=== PATIENT | male | born 1960 | race Caucasian/White ===

== ENCOUNTER → 2021-10-13 10:22 | Outpatient (CLI) | payer MEDICARE, SELFPAY ==
--- NOTE | ~2021-10-13 | CT_ITS ---
EXAMINATION:CT lung screening DATE: 10/13/2021 10:36 INDICATION: Personal history of tobacco dependence. Current smoker with 30 pack year history. TECHNIQUE: Computed tomography (CT) of the chest was performed without intravenous contrast. Automate d exposure control and iterative reconstruction technique were employed. The dose-length product (DLP ) was 290.14 mGy-cm. COMPARISON: CT abdomen and pelvis 06/11/2018 FINDINGS: There is mild scarring at the lung apices. Calcified right lung nodules are consistent with old granulomatous disease. There is mild emphysema. There is mild atelectasis in the inferior lungs. No pleural effusion. The heart size is normal. There are coronary artery calcifications. No pericard ial effusion. There are changes of anterior fusion procedure in cervical spine. There is moderate tho racic spondylosis. IMPRESSION: 1. Lung-RADS category 1: Negative. Continue annual screening with noncontrast low-dose chest CT in 12 months. Reviewed, dictated and finalized at location A. K GRINDER IMPRESSION: 1. Lung-RADS category 1: Negative. Continue annual screening with noncontrast l ow-dose chest CT in 12 months.
== END ==
PROVIDERS: Visit Provider Family Medicine
DX: F17.210 Nicotine dependence, cigarettes, uncomplicated (principal)
CPT/HCPCS: 71271

== ENCOUNTER → 2022-02-17 11:49 | Outpatient (CLI) | payer MEDICARE, SELFPAY ==
--- NOTE | ~2022-02-17 | XR_ITS ---
EXAM: XR lumbar spine 6V w bending DATE: 02/17/2022 12:28 HISTORY: M54.9 - Dorsalgia, unspecified; no injury . COMPARISON: None available. FINDINGS: Mild lumbar scoliosis with rotatory component. 5 lumbar type vertebral bodies with intact pedicles. Multilevel lower lumbar facet sclerosis. Mild disc space L3-4. Moderate disc space narrowin g at L4-5 and L5-S1. 2 mm retrolisthesis of L1 on L2 and L2 on L3 remains stable in flexion. 2 mm ant erolisthesis of L4 on L5 that increases slightly in flexion. 2 mm anterolisthesis of L5 on S1. No mot ion exhibited in extension, which limits evaluation. IMPRESSION: Dynamic mild grade 1 anterolisthesis of L4 on L5. Remaining mild listheses described abov e remain stable in flexion but are inadequately evaluated in extension. Moderate lower lumbar degener ative disc disease and facet arthropathy. Reviewed, dictated and finalized at location K. IMPRESSION: Dynamic mild grade 1 anterolisthesis of L4 on L5. Remaining mild li stheses described above remain stable in flexion but are inadequately evaluated in extension. Moderate lower lumbar degenerative disc disease and facet arthro juan david.
--- NOTE | ~2022-02-17 | XR_ITS ---
EXAM: [id number] DATE: 02/17/2022 12:29 HISTORY: M54.9 - Dorsalgia, unspecified;fusion 10 yrs ago . COMPARISON: 04/10/2014. FINDINGS: Craniocervical association and atlantoaxial joint are normal. No prevertebral soft tissue swelling. Mild disc space narrowing and marginal osteophytosis at C4-5 and C7-T1. 2 mm anterolisthesi s of C3 on C4 and C4, C5, and C7 on T1. Stable interbody fusion from C5 through C7. Multilevel facet sclerosis. IMPRESSION: Mild, grade 1 anterolisthesis described above. Mild degenerative disc disease and facet a rthropathy. Reviewed, dictated and finalized at location K. IMPRESSION: Mild, grade 1 anterolisthesis described above. Mild degenerative di sc disease and facet arthropathy.
== END ==
PROVIDERS: PCP Family Medicine; Visit Provider Family Medicine
DX: M54.9 Dorsalgia, unspecified (principal); M50.30 Other cervical disc degeneration, unspecified cervical region; M43.12 Spondylolisthesis, cervical region; M51.36 Other intervertebral disc degeneration, lumbar region
CPT/HCPCS: 72040; 72114

== ENCOUNTER 2022-04-05 08:01 | Outpatient (CLI) | payer MEDICARE, SELFPAY ==
--- NOTE | ~2022-04-05 | MR_ITS ---
EXAMINATION: MR cervical spine wo con DATE: 04/05/2022 09:13 INDICATION: Other cervical disc degeneration. Neck pain. TECHNIQUE: Magnetic resonance imaging (MRI) of the cervical spine was performed without intravenous c ontrast. Sequences included sagittal T2-weighted FSE, sagittal T2-weighted FS FSE, sagittal T1-weight ed FSE, axial MERGE, and axial T2-weighted FSE. COMPARISON: Cervical spine MRI 07/22/2010, radiographs 02/17/2022 FINDINGS: There is kyphosis of cervical spine. There is 2 mm anterolisthesis of C3 on C4, C4 on C5, a nd C7 on T1. Vertebral body heights are normal. There are changes of anterior fusion procedures at C5 -C6 and C6-C7 with interbody devices. There is mildly decreased disc height at C4-C5 and C7-T1. The s shay cord signal intensity is normal. The following disc levels are specifically discussed: C2-C3: The disc does not extend beyond the endplate margin. There is mild bilateral uncovertebral dl nt osteoarthritis. There is severe bilateral facet joint osteoarthritis. There is mild bilateral neur al foraminal stenosis. There is no central canal stenosis. C3-C4: The disc does not extend beyond the endplate margin. There is moderate bilateral uncovertebral joint osteoarthritis. There is severe right and moderate left facet joint osteoarthritis. There is m oderate bilateral neural foraminal stenosis. There is no central canal stenosis. C4-C5: The disc does not extend beyond the endplate margin. There is mild bilateral uncovertebral dl nt osteoarthritis. There is severe bilateral facet joint osteoarthritis. There is mild bilateral neur al foraminal stenosis. There is no central canal stenosis. C5-C6: There is moderate bilateral uncovertebral joint hypertrophy. There is mild bilateral facet dl nt osteoarthritis. There is mild right and moderate left neural foraminal stenosis. There is no centr al canal stenosis. C6-C7: There is mild bilateral uncovertebral joint hypertrophy. There is mild right facet joint osteo arthritis. There is mild bilateral neural foraminal stenosis. There is mild central canal stenosis. C7-T1: The disc does not extend beyond the endplate margin. There is no uncovertebral joint osteoarth ritis. There is severe bilateral facet joint osteoarthritis. There is mild bilateral neural foraminal stenosis. There is no central canal stenosis. IMPRESSION: 1. Mild cervical spondylosis. 2. Anterior fusion procedures at C5-C6 and C6-C7. Reviewed, dictated and finalized at location A.
== END 2022-04-05 08:02 | disposition home or self-care (01) ==
LOC: ANHIMG 08:04
PROVIDERS: PCP Family Medicine; Visit Provider Family Medicine
DX: M50.30 Other cervical disc degeneration, unspecified cervical region (principal); M47.812 Spondylosis without myelopathy or radiculopathy, cervical region; Z98.1 Arthrodesis status
CPT/HCPCS: 72141

== ENCOUNTER 2022-10-02 22:19 | Emergency (ER) | payer MEDICARE, SELFPAY ==
--- NOTE | ~2022-10-02 | CT_ITS ---
EXAMINATION: CT abdomen pelvis wo con DATE: 10/02/2022 23:47 INDICATION: Abdomen pain. Leukocytosis. Multiple abdominal surgeries. TECHNIQUE: Computed tomography (CT) of the abdomen and pelvis was performed without intravenous contr ast. The dose-length product was 1074.61 mGy-cm. Automated exposure control and iterative reconstruct ion technique were employed. COMPARISON: CT dated 06/11/2018. FINDINGS: There are surgical changes consistent with partial colectomy and ventral abdominal wall her eilan repair. There is liquid stool throughout the colon, consistent with diarrhea. No evidence for bow el obstruction. No free air or free fluid. The liver, spleen, pancreas, adrenal glands and left kidney are unremarkable. There is a 2 mm nonobst ructing right renal stone. Gallbladder is mildly distended. There is atherosclerosis of the aorta wit hout aneurysm. No lymphadenopathy. No focal lytic or blastic lesions. There is lower thoracic and lum bar spondylosis. IMPRESSION: 1. Liquid stool in the colon, consistent with diarrhea. No obstruction. 2: Nonobstructing right nephrolithiasis. Reviewed, dictated and finalized at location A. 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
[2022-10-02 22:21] VITALS: BP 94/70; PULSE 122; RESP 32
--- NOTE | 2022-10-02 22:34 | PC.NURSE ---
patient states he stopped taking his suboxone and isnow in withdraw states his dr is not aware of this
[2022-10-02] MEDS: BUPRENORPHINE HCL (*CRX) 2 MG SUBLINGUAL TABLET 4 MG PO (22:55)
--- NOTE | 2022-10-02 22:57 | ED.ABDPAIN ---
HPI - Abdominal Pain General Chief Complaint: Abdominal Pain Stated Complaint: ABD pain, n/d Time Seen by Provider: 10/02/22 22:28 History of Present Illness HPI narrative: 62-year-old male history of hypertension, hyperlipidemia, and opioid abuse presents to the emergency room for evaluation of nausea, abdominal pain and diarrhea intermittently for 2 weeks. Reports has had multiple episodes of nonbloody liquid diarrhea. Patient states that he takes Suboxone 3 times a day and has been weaning himself off over the past couple of weeks. States has been taking 4 mg 3 times a day instead of his regular 8. Patient also admits to not taking Suboxone for the last 48 hours. Admits that he has been weaning himself off without the direction of his PCP. Related Data Allergies Allergy/AdvReac Type Severity Reaction Status Date / Time No Known Allergies Allergy Verified 07/31/22 13:55 Review of Systems Review of Systems: CONSTITUTIONAL: Denies fever, chills, or sweats. EYES: Denies visual changes, redness, or discharge. ENT: Denies rhinorrhea, congestion, sore throat, or otalgia. CARDIOVASCULAR: Denies chest pain, palpitations, or edema. RESPIRATORY: Denies cough or dyspnea. GASTROINTESTINAL: Reports abdominal pain, nausea, vomiting, and diarrhea. GENITOURINARY: Denies dysuria or hematuria. SKIN: Denies rash or itching. MUSCULOSKELETAL: Denies back pain, joint pain, or myalgia. NEUROLOGIC: Denies headache, numbness, dizziness, or weakness. PSYCHIATRIC: Denies anxiety or depression. [facility] Past Medical History Medical History Anxiety Arthritis Depression GERD (gastroesophageal reflux disease) Skin cancer Family History Family History Father , Age 59 [place] Heart disease Grandparent , Age 96 of Natural Causes No problems noted. Grandparent , Age 87 Lung Cancer Lung cancer Grandparent , Age 85 Natural Causes No problems noted. Grandparent , Age 83 Leukemia Leukemia Social History Social History Smoking packs per day: 1 Smoking cigarettes per day: 20.0 Years smoked: 20 Smoking pack-years: 20.00 Smoking status: Current every day smoker Alcohol intake: never Spiritual care concerns: No Exam Narrative: GENERAL: Well-appearing, well-nourished, no physical limitations, uncomfortable HEAD: Normocephalic, atraumatic. EYES: Conjunctivae normal, PERRLA and EOMI. CHEST: Clear to auscultation. No respiratory distress. No wheezes rales or rhonchi. HEART: Regular rate and rhythm. No murmur heard. Normal peripheral pulses. ABDOMEN: Soft, nontender, nondistended, normal active bowel sounds. Healed ventral incisional scar BACK: No CVA tenderness EXTREMITIES: Normal range of motion. No edema. No clubbing or cyanosis SKIN: Warm, dry, no rash. No noted wounds NEURO: No focal deficits. Alert and oriented x3. MAEW. CN's II-XI intact bilaterally, normal gait PSYCH: Cooperative. Normal mood and affect. Course Course Emergency Course: Discussed findings with patient. Discussed his abnormal kidney function, and recommended he stay in the hospital for an acute TONY. Patient stated he would rather go home and follow-up with nephrology on Wednesday. Discussed the risks and benefits of not being hospitalized, he stated understanding. Vital Signs Vital signs: Vital Signs Pulse Rate 122 H 10/02/22 22:21 Respiratory Rate 32 H 10/02/22 22:21 Blood Pressure 94/70 L 10/02/22 22:21 Pulse Rate 122 H 10/02/22 22:21 Respiratory Rate 32 H 10/02/22 22:21 Blood Pressure 94/70 L 10/02/22 22:21 MDM - Abdominal Pain Lab Data 10/02/22 23:10 10/02/22 23:10 Labs: Lab Results 10/02/22 10/02/22 10/02/22 Range/Units 2
[2022-10-02] MEDS: SODIUM CHLORIDE 0.9% IV 1,000 ML 999 ML IV CONT (23:09)
[2022-10-02] MEDS: ONDANSETRON INJ 4 MG/2 ML VIAL IV PUSH (23:09)
[2022-10-02 23:22] LABS: Basophils Absolute Auto 0.1 K/mm3 (0.0-0.1); Basophils Percent Auto 0.4 % (0.2-1.2); Eosinophils Absolute Auto 0.1 K/mm3 (0-0.3); Eosinophils Percent Auto 0.7 % (0-4.4); Hematocrit 49.1 % (42.0-52.0); Hemoglobin 15.7 g/dL (14.0-18.0); Immature Granulocyte Absolute 0.29 K/mm3 (0.00-0.031); Immature Granulocyte Percent A 1.6 % (0-0.5); Lymphocytes Absolute Auto 2.57 K/mm3 (0.9-3.2); Lymphocytes Percent Auto 14.4 % (18.3-44.2); Mean Corpuscular Hemoglobin 26.1 pg (26-34); Mean Corpuscular Volume 81.6 fl (80-100); Mean Platelet Volume 10.6 fl (7.4-10.4); Monocytes Percent Auto 5.6 % (2.6-8.5); Neutrophils Absolute Auto 13.8 K/mm3 (1.3-6.7); Neutrophils Percent Auto 77.3 % (45.5-73.1); Platelet Count Result 573 k/mm3 (150-375); Red Blood Count 6.02 M/mm3 (4.6-6.20); Red Cell Distribution Width 18.4 % (11.5-14.5); White Blood Count 17.9 K/mm3 (4.5-10.0)
[2022-10-02 23:33] LABS: Alanine Aminotransferase 32 U/L (6-50); Albumin Level 4.6 g/dL (3.5-5.1); Alkaline Phosphatase 124 U/L (38-126); Anion Gap 13 mmol/L (8-16); Aspartate Amino Transferase 34 U/L (17-59); Bilirubin,Total 0.7 mg/dL (0.2-1.3); Blood Urea Nitrogen 30 mg/dL (9-20); Calcium 10.8 mg/dL (8.4-10.2); Carbon Dioxide 25 mmol/L (22-30); Chloride 99 mmol/L (98-107); Estimated CRCL calculation 28 ml/min; Estimated Glomerular Filt Rate 24; Glucose 126 mg/dL (65-110); Lipase 141 U/L (23-300); Potassium 4.2 mmol/L (3.4-5.0); Sodium 137 mmol/L (137-145)
[2022-10-02 23:52] VITALS: BP 100/79
[2022-10-03 00:15] VITALS: BP 108/83; PULSE 95; RESP 16; O2SAT 99
[2022-10-03 00:33] LABS: SARS-CoV-2 RNA PCR Negative
[2022-10-03 00:45] LABS: Lactic Acid Reflex 1.9 mmol/L (0.7-2.0)
[2022-10-03] MEDS: SODIUM CHLORIDE 0.9% IV 1,000 ML 999 ML IV CONT (01:00)
[2022-10-03 01:12] LABS: Mucus Urine Heavy /lpf; Squamous Epithelial Cell Urine Few /hpf (Few)
[2022-10-03 01:13] LABS: Add Urine Microscopic? YES; Appearance Urine Clear (Clear); Bilirubin Urine 1+ (Negative); Blood Urine Negative (Negative); Color Urine Yellow (Yellow); Glucose Urine UA Negative (Negative); Ketones Urine Trace mg/dL (Negative); Leukocyte Esterase Ur Negative LEU/UL (Negative); Nitrate Urine Negative (Negative); Protein Urine 1+ mg/dL (Negative); Specific Grav Ur 1.025 (1.001-1.035); Urobilinogen Urine 0.2 mg/dL (<2.0); pH Urine 5.5 (5.0-9.0)
[2022-10-03 01:22] LABS: Amphetamine Screen Urine Negative (Negative); Barbiturate Screen Urine Negative (Negative); Benzodiazepines Screen Urine Negative (Negative); Cannabinoid Screen Urine Negative (Negative); Cocaine Screen Urine Negative (Negative); Methadone Screen Urine Negative (Negative); Opiate Screen Urine Negative (Negative); Phencyclidine Screen Urine Negative (Negative)
== END 2022-10-03 01:16 | disposition home or self-care (01) ==
PROVIDERS: Emergency Provider Nurse Practitioner Family; PCP Family Medicine
DX: R19.7 Diarrhea, unspecified (principal); N28.9 Disorder of kidney and ureter, unspecified; T40.496A Underdosing of other synthetic narcotics, initial encounter; R11.0 Nausea; R10.9 Unspecified abdominal pain; Z91.128 Patient's intentional underdosing of medication regimen for other reason; Z20.822 Contact with and (suspected) exposure to COVID-19; I10 Essential (primary) hypertension; E78.5 Hyperlipidemia, unspecified; M19.90 Unspecified osteoarthritis, unspecified site; K21.9 Gastro-esophageal reflux disease without esophagitis; F41.9 Anxiety disorder, unspecified; F32.A Depression, unspecified; F17.210 Nicotine dependence, cigarettes, uncomplicated; Z85.828 Personal history of other malignant neoplasm of skin; Z79.899 Other long term (current) drug therapy; N20.0 Calculus of kidney
CPT/HCPCS: 36415; 74176; 80053; 80307; 81001; 83605; 83690; 85025; 87086; 96361; 96374; 99284; A9270; J2405; J7030; U0003; U0005

== ENCOUNTER 2022-11-13 08:49 | Outpatient (CLI) | payer MEDICARE, SELFPAY ==
[2022-11-13 11:02] LABS: Basophils Absolute Auto 0.1 K/mm3 (0.0-0.1); Basophils Percent Auto 0.6 % (0.2-1.2); Eosinophils Absolute Auto 0.3 K/mm3 (0-0.3); Eosinophils Percent Auto 3.9 % (0-4.4); Hematocrit 47.1 % (42.0-52.0); Hemoglobin 15.5 g/dL (14.0-18.0); Immature Granulocyte Absolute 0.03 K/mm3 (0.00-0.031); Immature Granulocyte Percent A 0.4 % (0-0.5); Lymphocytes Absolute Auto 2.59 K/mm3 (0.9-3.2); Lymphocytes Percent Auto 31.4 % (18.3-44.2); Mean Corpuscular HGB Conc 32.9 g/dl (32-36); Mean Corpuscular Hemoglobin 27.5 pg (26-34); Mean Corpuscular Volume 83.5 fl (80-100); Mean Platelet Volume 11.6 fl (7.4-10.4); Monocytes Absolute Auto 0.7 K/mm3 (0.1-0.6); Monocytes Percent Auto 8.6 % (2.6-8.5); Neutrophils Absolute Auto 4.5 K/mm3 (1.3-6.7); Neutrophils Percent Auto 55.1 % (45.5-73.1); Platelet Count Result 152 k/mm3 (150-375); Red Blood Count 5.64 M/mm3 (4.6-6.20); Red Cell Distribution Width 16.3 % (11.5-14.5); White Blood Count 8.2 K/mm3 (4.5-10.0)
[2022-11-13 11:34] LABS: Potassium 4.6 mmol/L (3.4-5.0)
[2022-11-13 11:37] LABS: Alanine Aminotransferase 19 U/L (6-50); Albumin Level 4.4 g/dL (3.5-5.1); Alkaline Phosphatase 79 U/L (38-126); Anion Gap 3 mmol/L (8-16); Aspartate Amino Transferase 32 U/L (17-59); Bilirubin,Total 0.5 mg/dL (0.2-1.3); Blood Urea Nitrogen 16 mg/dL (9-20); Calcium 8.6 mg/dL (8.4-10.2); Carbon Dioxide 34 mmol/L (22-30); Chloride 101 mmol/L (98-107); Cholesterol 186 mg/dL (0-200); Estimated Glomerular Filt Rate > 60; Glucose 117 mg/dL (65-110); HDL Direct 35 mg/dL; Sodium 138 mmol/L (137-145); Triglycerides 270 mg/dL (<150)
[2022-11-13 11:45] LABS: LDL Cholesterol Direct 90 mg/dL
[2022-11-20 17:09] LABS: Testosterone Free 20.6 pg/mL (35.0-155.0); Testosterone Total 176 ng/dL (250-1100)
== END 2022-11-13 08:50 | disposition home or self-care (01) ==
LOC: ANHGOSHLAB 08:50
PROVIDERS: PCP Family Medicine; Visit Provider Family Medicine
DX: F52.21 Male erectile disorder (principal); I10 Essential (primary) hypertension; Z13.220 Encounter for screening for lipoid disorders; D75.839 Thrombocytosis, unspecified
CPT/HCPCS: 36415; 80053; 80061; 84402; 84403; 85025

== ENCOUNTER 2022-11-24 00:10 | Day surgery (SDC) | payer MEDICARE, SELFPAY ==
[2022-11-09 11:32] VITALS: BMI 32.5
--- NOTE | 2022-11-23 11:05 | WPDANESEPPF ---
Anes - Initial Pre Proc Eval Procedure: Operation Date: 11/24/22 13:00 Proposed Procedures p Colonoscopy - Manny Garcia MD Date/Time: 11/23/22 11:05 Surgeon: Manny Garcia MD Pre Op Diagnosis: melena Patient Data Age: 62 Gender: M Height: 1.75 m Weight: 100 kg Allergies Allergy/AdvReac Type Severity Reaction Status Date / Time No Known Allergies Allergy Verified 11/24/22 11:55 Home Medications Medication Instructions Recorded Confirmed Type omeprazole 20 mg capsule,delayed 20 mg PO DAILY #30 caps 09/15/21 11/24/22 Rx release atorvastatin 20 mg tablet 20 mg PO DAILY #90 tabs 04/20/22 11/24/22 Rx losartan 100 mg tablet 100 mg PO DAILY #90 tabs 07/07/22 11/24/22 Rx gabapentin 300 mg capsule See Rx Instructions .Route 10/08/22 11/24/22 Rx .COMPLEX #180 caps methylphenidate HCl 20 mg tablet 20 mg PO TID #90 tabs 10/29/22 11/24/22 Rx (Ritalin) duloxetine 30 mg capsule,delayed 30 mg PO DAILY #30 caps 11/05/22 11/24/22 Rx release metoprolol tartrate 50 mg tablet 50 mg PO BID #60 tabs 11/06/22 11/24/22 Rx buprenorphine HCl 8 mg sublingual 8 mg sublingual TID #90 tabs 11/07/22 11/24/22 Rx tablet albuterol sulfate 90 mcg/actuation 1 inh inhalation Q4-6H PRN 11/09/22 11/24/22 History aerosol inhaler Shortness Of Breath venlafaxine 150 mg tablet,extended 150 mg PO DAILY 11/09/22 11/24/22 History release 24 hr venlafaxine 75 mg tablet,extended 75 mg PO DAILY 11/09/22 11/24/22 History release 24 hr testosterone 12.5 mg/1.25 gram per 4 pump transdermal DAILY #150 grams 11/24/22 11/24/22 Rx pump actuation (1%) transdermal gel Patient hx anesthesia problems: none Family hx anesthesia problems: none Results Review: All pre-operative results and documents have been reviewed as part of the pre-operative evaluation. [facility] Past Medical History Medical History (Updated 11/23/22 @ 11:06 by Lance Jara DO) ADD (attention deficit disorder) Anxiety Arthritis Benign essential hypertension COPD (chronic obstructive pulmonary disease) Depression GERD (gastroesophageal reflux disease) Hyperlipidemia Skin cancer Surgical History Surgical History (Updated 11/23/22 @ 11:06 by Lance Jara DO) History of cervical spinal surgery Family History Family History Father , Age 59 [place] Heart disease Grandparent , Age 96 of Natural Causes No problems noted. Grandparent , Age 87 Lung Cancer Lung cancer Grandparent , Age 85 Natural Causes No problems noted. Grandparent , Age 83 Leukemia Leukemia Social History Social History Smoking packs per day: 1 Smoking cigarettes per day: 20.0 Years smoked: 20 Smoking pack-years: 20.00 Smoking status: Current every day smoker Tobacco type: cigarettes Alcohol intake: never Substance use: former Substance use type: opiates Lack of Transportation: No Lack of Food: Never True Current Housing: I Have Housing Concerned About Future Housing: No Difficulty Paying Gas/Electric Bills: No Difficulty Paying for Meds: No Currently Unemployed: No Education: Bachelor's Degree Difficulty w/ Childcare or Family Care: No Living arrangements: alone Spiritual care concerns: No Anes - Eval Final PreProcedure Day of Procedure 11/23/22 11:05 Patient weight: obese Heart: regular rate and rhythm Lungs: clear to auscultation Airway: Mallampati scale class II Neurological: alert and oriented Last oral intake: >/= 8 hours ASA classification: III Emergent: no Anesthetic plan: proceed Anesthesia type and monitoring: general GIVS and standard monitoring Results Review: All pre-operative results and documents have been reviewed as part of the pre-operative ev
[2022-11-24 11:45] VITALS: BP 131/85; PULSE 101; RESP 18; TEMP 36; O2SAT 99; BMI 34.6
[2022-11-24] MEDS: LACTATED RINGERS 1,000 ML 150 ML IV CONT (12:05)
--- NOTE | 2022-11-24 12:09 | SUR.PREOP ---
1200- Updated patient. Aware that we are running behind schedule. Patient understanding.
--- NOTE | 2022-11-24 13:22 | PM.HPGS ---
History of Present Illness History of Present Illness Consent: Risks, benefits, and alternatives have been discussed and questions answered. Patient agrees to proceed with procedure. Chief complaint: melena Narrative: Steve Shirley is a 62 year old male here for colonoscopy, had occult blood in stool, last colonoscopy about 4 years ago Review of Systems Constitutional: Constitutional: Denies headache(s) and Denies weakness Eyes: Eyes: Denies blurry vision ENT: Reports Normal hearing present, Denies headache(s) and Denies neck pain Cardiovascular: Cardiovascular: Denies chest pain and Denies dyspnea Respiratory: Respiratory: Denies dyspnea Gastrointestinal: Gastrointestinal: Reports no additional gastrointestinal complaints Genitourinary: Genitourinary: Denies dysuria Musculoskeletal: Musculoskeletal: Denies neck pain Integumentary/Breasts: Skin/Breast: Denies dry skin Neurologic: Reports Normal hearing present, Denies headache(s) and Denies weakness Psychiatric: Psychiatric: Denies anxiety Endocrine: Endocrine: Denies change in body appearance Hematologic/Lymphatic: Hematologic/Lymphatic: Denies easy bleeding Allergic/Immunologic: Allergic/Immunologic: Denies urticaria PMFSH Past Medical History Medical History (Updated 11/24/22 @ 13:23 by Manny Garcia MD) ADD (attention deficit disorder) Anxiety Arthritis Benign essential hypertension COPD (chronic obstructive pulmonary disease) Depression GERD (gastroesophageal reflux disease) Hyperlipidemia Occult blood in stools Skin cancer Surgical History Surgical History (Updated 11/23/22 @ 11:06 by Lance Jara DO) History of cervical spinal surgery Family History Family History Father , Age 59 [place] Heart disease Grandparent , Age 96 of Natural Causes No problems noted. Grandparent , Age 87 Lung Cancer Lung cancer Grandparent , Age 85 Natural Causes No problems noted. Grandparent , Age 83 Leukemia Leukemia Social History Social History Smoking packs per day: 1 Smoking cigarettes per day: 20.0 Years smoked: 20 Smoking pack-years: 20.00 Smoking status: Current every day smoker Tobacco type: cigarettes Alcohol intake: never Substance use: former Substance use type: opiates Lack of Transportation: No Lack of Food: Never True Current Housing: I Have Housing Concerned About Future Housing: No Difficulty Paying Gas/Electric Bills: No Difficulty Paying for Meds: No Currently Unemployed: No Education: Bachelor's Degree Difficulty w/ Childcare or Family Care: No Living arrangements: alone Spiritual care concerns: No Meds Home Medications and Allergies Home Medications Medication Instructions Recorded Confirmed Type omeprazole 20 mg capsule,delayed 20 mg PO DAILY #30 caps 09/15/21 11/24/22 Rx release atorvastatin 20 mg tablet 20 mg PO DAILY #90 tabs 04/20/22 11/24/22 Rx losartan 100 mg tablet 100 mg PO DAILY #90 tabs 07/07/22 11/24/22 Rx gabapentin 300 mg capsule See Rx Instructions .Route 10/08/22 11/24/22 Rx .COMPLEX #180 caps methylphenidate HCl 20 mg tablet 20 mg PO TID #90 tabs 10/29/22 11/24/22 Rx (Ritalin) duloxetine 30 mg capsule,delayed 30 mg PO DAILY #30 caps 11/05/22 11/24/22 Rx release metoprolol tartrate 50 mg tablet 50 mg PO BID #60 tabs 11/06/22 11/24/22 Rx buprenorphine HCl 8 mg sublingual 8 mg sublingual TID #90 tabs 11/07/22 11/24/22 Rx tablet albuterol sulfate 90 mcg/actuation 1 inh inhalation Q4-6H PRN 11/09/22 11/24/22 History aerosol inhaler Shortness Of Breath venlafaxine 150 mg tablet,extended 150 mg PO DAILY 11/09/22 11/24/22 History release 24 hr venlafaxine 75 mg tablet,extended 75 mg PO DAILY 11/09/22 11/24/22
[2022-11-24 13:43] VITALS: BP 100/61; PULSE 85; RESP 20; O2SAT 93
[2022-11-24 13:53] VITALS: BP 113/78; PULSE 89; RESP 21; O2SAT 97
[2022-11-24 14:03] VITALS: BP 121/79; PULSE 83; RESP 16; O2SAT 96
== END 2022-11-24 14:10 | disposition home or self-care (01) ==
PROVIDERS: PCP Family Medicine; Visit Provider Internal Medicine Gastroenterology
PROC: 0DJD8ZZ Inspection of Lower Intestinal Tract, Via Natural or Artificial Opening Endoscopic (ICD-10-PCS; CPT 45378; principal; 2022-11-24 13:00)
DX: Z12.11 Encounter for screening for malignant neoplasm of colon (principal); K57.30 Diverticulosis of large intestine without perforation or abscess without bleeding; K64.8 Other hemorrhoids; R19.5 Other fecal abnormalities; Z90.49 Acquired absence of other specified parts of digestive tract; Z98.0 Intestinal bypass and anastomosis status; Z87.19 Personal history of other diseases of the digestive system; J44.9 Chronic obstructive pulmonary disease, unspecified; E78.5 Hyperlipidemia, unspecified; F41.9 Anxiety disorder, unspecified; F32.A Depression, unspecified; K21.9 Gastro-esophageal reflux disease without esophagitis; F98.8 Other specified behavioral and emotional disorders with onset usually occurring in childhood and adolescence; F17.210 Nicotine dependence, cigarettes, uncomplicated; Z79.51 Long term (current) use of inhaled steroids; E66.9 Obesity, unspecified; Z68.34 Body mass index [BMI] 34.0-34.9, adult
CPT/HCPCS: G0121; J2704; J7120

== ENCOUNTER 2023-06-29 12:46 | Emergency (ER) | payer MEDICARE, SELFPAY ==
--- NOTE | ~2023-06-29 | XR_ITS ---
EXAMINATION: XR foot RT min 3V DATE: 06/29/2023 13:21 INDICATION: Right foot pain TECHNIQUE: Dorsoplantar, lateral, and 2 oblique views of the right foot were obtained. COMPARISON: None. FINDINGS: Bone alignment is normal. There is advanced osteoarthritis at the first metatarsophalangeal joint. A subtle heterotopic ossification projects near the dorsal base of the first metatarsal. Ther e is dorsal soft tissue swelling of the foot. IMPRESSION: 1. Possible avulsion injury at the dorsal base of the first metatarsal. Reviewed, dictated and finalized at location A.
[2023-06-29 12:58] VITALS: BP 149/97; PULSE 106; RESP 16; TEMP 36.1; O2SAT 99
--- NOTE | 2023-06-29 13:11 | ED.LOWEXIN ---
HPI - Extremity Injury (Lower) General Chief Complaint: Extremity Injury, Lower Stated Complaint: R FOOT INJURY Time Seen by Provider: 06/29/23 13:13 Source: patient, RN notes reviewed and old records reviewed Mode of arrival: ambulatory Limitations: no limitations History of Present Illness HPI Narrative: 63-year-old male presents to the [facility] with complaints of right foot pain. Pain over the 4th and 5th metatarsals. No 1st metatarsal or MM DP tenderness. Patient states about a week ago was walking downstairs, hyper extended his foot when he was to try to avoid his CT. No bruising or swelling noted. Positive pedal pulse. Sensation intact capillary refill under 2 seconds Related Data Home Medications Medication Instructions Recorded Confirmed albuterol sulfate 90 mcg/actuation 1 inh inhalation Q4-6H PRN 11/09/22 03/18/23 aerosol inhaler Shortness Of Breath Allergies Allergy/AdvReac Type Severity Reaction Status Date / Time No Known Allergies Allergy Verified 03/18/23 11:22 Review of Systems Review of Systems: All systems reviewed & are unremarkable except as noted in HPI and below Constitutional: Constitutional: Reports no additional constitutional complaints Eyes: Eyes: Reports no additional eye complaints ENT: Reports system reviewed and no additional complaints, except as documented Cardiovascular: Cardiovascular: Reports no additional cardiovascular complaints, Denies chest pain and Denies dyspnea Respiratory: Respiratory: Reports no additional respiratory complaints, Denies chest congestion, Denies cough and Denies dyspnea Gastrointestinal: Gastrointestinal: Reports no additional gastrointestinal complaints, Denies abdominal pain, Denies nausea and Denies vomiting Musculoskeletal: Musculoskeletal: Reports as per HPI Integumentary/Breasts: Skin/Breast: Reports system reviewed and no additional complaints, except as docu Neurologic: Reports system reviewed and no additional complaints, except as documented Psychiatric: Psychiatric: Reports no additional psychiatric complaints Allergic/Immunologic: Allergic/Immunologic: Reports no additional allergic/immunologic complaints [facility] Past Medical History Medical History ADD (attention deficit disorder) Anxiety Arthritis Benign essential hypertension COPD (chronic obstructive pulmonary disease) Depression GERD (gastroesophageal reflux disease) Hyperlipidemia Occult blood in stools Skin cancer Surgical History Surgical History History of cervical spinal surgery Family History Family History Father , Age 59 [place] Heart disease Grandparent , Age 96 of Natural Causes No problems noted. Grandparent , Age 87 Lung Cancer Lung cancer Grandparent , Age 85 Natural Causes No problems noted. Grandparent , Age 83 Leukemia Leukemia Social History Social History Smoking packs per day: 1 Smoking cigarettes per day: 20.0 Years smoked: 20 Smoking pack-years: 20.00 Smoking status: Current every day smoker Tobacco type: cigarettes Alcohol intake: never Substance use: former Substance use type: opiates Living arrangements: alone Spiritual care concerns: No Comments At the time of my signature, I reviewed and agree with the nursing past medical, surgical, social, and family history. There is no relevant family history pertinent to the patient complaint. Exam Const: General: cooperative, healthy appearing, comfortable, no acute distress, well developed, alert and well nourished Nutritional Appearance: well nourished Orientation/consciousness: patient oriented x3 Limitations: no limitations HENMT: Head:
== END 2023-06-29 13:38 | disposition home or self-care (01) ==
PROVIDERS: Emergency Provider Nurse Practitioner; PCP Family Medicine
DX: S93.601A Unspecified sprain of right foot, initial encounter (principal); T14.90XA Injury, unspecified, initial encounter; F98.8 Other specified behavioral and emotional disorders with onset usually occurring in childhood and adolescence; K21.9 Gastro-esophageal reflux disease without esophagitis; E78.5 Hyperlipidemia, unspecified; I10 Essential (primary) hypertension; F17.210 Nicotine dependence, cigarettes, uncomplicated
CPT/HCPCS: 73630; 99213; G0463

== ENCOUNTER 2024-04-25 14:26 | Outpatient (CLI) | payer MEDICARE, SELFPAY ==
--- NOTE | ~2024-04-25 | CT_ITS ---
EXAMINATION: CT lung screening DATE: 04/25/2024 14:37 INDICATION: F17.210 - Nicotine dependence, cigarettes, uncomplicated TECHNIQUE: Computed tomography (CT) of the chest was performed without intravenous contrast. Addition al 3D reconstructions utilizing coronal maximum intensity projection (MIP) were performed. Automated exposure control and iterative reconstruction technique were employed. The dose-length product was 32 6.04 mGy-cm. COMPARISON: None FINDINGS: There are a few tiny bilateral calcified pulmonary nodules consistent with old granulomatous disease. Unchanged discoid atelectasis/scarring in the right middle lobe and to lesser degree lingula and bas ilar left lower lobe. Taking pattern of mild discoid atelectasis in the right lower lobe. No other goff spicious pulmonary nodules, pneumonia or other pulmonary infiltrates or pleural effusion. Heart size is normal. Atherosclerotic coronary artery calcific location. No pericardial effusion. Thoracic aorta is normal in caliber. No pathologically enlarged thoracic lymphadenopathy. Visualized upper abdomen is unremarkable. Moderate thoracic spondylosis. IMPRESSION: 1. Lung-RADS category 1: Negative. Continue annual screening with noncontrast low-dose chest CT in 12 months. Reviewed, dictated and finalized at location A. IMPRESSION: 1. Lung-RADS category 1: Negative. Continue annual screening with noncontrast l ow-dose chest CT in 12 months.
== END 2024-04-25 14:27 | disposition home or self-care (01) ==
LOC: ANHIMG 14:28
PROVIDERS: PCP Family Medicine; Visit Provider Family Medicine
DX: Z12.2 Encounter for screening for malignant neoplasm of respiratory organs (principal); F17.210 Nicotine dependence, cigarettes, uncomplicated
CPT/HCPCS: 71271

== ENCOUNTER 2024-08-07 08:52 | Outpatient (CLI) | payer MEDICARE, SELFPAY ==
[2024-08-07 19:41] LABS: LDL Cholesterol Direct 94 mg/dL
[2024-08-07 19:46] LABS: Cholesterol 257 mg/dL (0-200); HDL Direct 25 mg/dL
[2024-08-07 21:22] LABS: Triglycerides 695 mg/dL (<150)
== END 2024-08-07 08:53 | disposition home or self-care (01) ==
LOC: ANHGOSHLAB 08:54
PROVIDERS: PCP Family Medicine; Visit Provider Family Medicine
DX: R53.83 Other fatigue (principal); E78.5 Hyperlipidemia, unspecified; Z13.220 Encounter for screening for lipoid disorders
CPT/HCPCS: 36415; 80061; 84402; 84403

== ENCOUNTER 2024-11-16 10:56 | Outpatient (CLI) | payer MEDICARE, SELFPAY ==
--- NOTE | ~2024-11-16 | XR_ITS ---
AP and lateral views of the left hip Clinical history: Pain Findings: No acute fracture or dislocation is seen. Osseous alignment is anatomic. Left hip is intact . Soft tissues are unremarkable. Impression: No significant abnormality is seen. Reviewed, dictated and finalized at location M. P HOME SUPERVISOR Impression: No significant abnormality is seen.
--- NOTE | ~2024-11-16 | XR_ITS ---
EXAMINATION: SACRUM/COCCYX DATE: 11/16/2024 11:17 INDICATION: Back pain TECHNIQUE: Three views sacrum/coccyx FINDINGS: CT dated 10/02/2022 There is no displaced fracture of the sacrum. The coccyx demonstrates overall normal morphology with out acute angulation. IMPRESSION: 1. No acute displaced osseous abnormality of the sacrum. Suspicion for occult or nondisplaced sacral fracture can either be evaluated with CT or MRI. 2. Grossly normal morphology to the coccyx without acute angulation. However, due to the wide range of normal variation of the coccyx, acute injury would be best evaluated by clinical examination and patient's symptoms. Reviewed, dictated and finalized at location B. OM HOME INSTALLER
== END 2024-11-16 10:57 | disposition home or self-care (01) ==
LOC: GOSHIMG 10:56
PROVIDERS: PCP Nurse Practitioner; Visit Provider Nurse Practitioner
DX: M25.559 Pain in unspecified hip (principal); M53.3 Sacrococcygeal disorders, not elsewhere classified
CPT/HCPCS: 72220; 73502

== ENCOUNTER 2025-03-16 12:24 | Outpatient (RCR) | payer MEDICARE, SELFPAY ==
--- NOTE | 2025-03-09 10:19 | PCPTNOTE ---
Pt used automated messaging system to request a rescheduling of his OP PT Evaluation, per front office communication.
--- NOTE | 2025-03-16 13:25 | OPREHPOC ---
Outpatient Therapy Plan of Care This is a Multidisciplinary Plan of Care that may contain components documented by all disciplines (PT, OT, and ST.) PT Problem 1 PT Problem #1 Knowledge Deficit PT Goal 1 Goal / Goal Update Patient to demonstrate independence with HEP for improved self-reliance of symptom management. Target Visit 8 PT Problem 2 PT Problem #2 Pain PT Goal 1 Goal / Goal Update 1. Patient to decrease subjective reports of pain to <3/10 for improved ADL tolerance. 2. Patient to report an improvement in radiating symptoms by 50% to increase ability to perform ADLs. Target Visit 8 PT Problem 3 PT Problem #3 Impaired Functional Mobility PT Goal 1 Goal / Goal Update 1. Pt will tolerate 6 MWT with no radicular pain or rest breaks needed showing improvements in functional mobility. 2. Pt will show improvements in lumbar ROM in all planes with no pain provocation Target Visit 8 PT Problem 4 PT Problem #4 Impaired Strength PT Goal 1 Goal / Goal Update 1. - Patient will demonstrate improved strength of the bilateral hip abductors to 4+/5 on manual muscle testing in order to improve gait stability .
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
--- NOTE | 2025-03-23 09:14 | PCPTNOTE ---
Patient requested to cancel in [employer] with no reason given.
--- NOTE | 2025-03-26 12:19 | PCPTNOTE ---
Pt called and canceled his appointment stating he has been dizzy for the past few days and he is going to see his doctor about it tomorrow.
--- NOTE | 2025-04-02 11:38 | PCPTNOTE ---
Patient called this morning to ask when his appointment was via voicemail. Patient's call was returned at 8:31 am however he did not answer therefore his appointment time of 11:00 am was left via voicemail. Patient no-showed his appointment this date.
--- NOTE | 2025-04-02 14:26 | PTOPDC ---
Assessment and note entered by Orestes Cooper, PT Evaluation Information Assessment Status Discharge - Pt Not Present Diagnosis Hip pain and Sciatica ICD-10 Condition Codes (PT) Radiculopathy, sacral and sacrococcygeal region M54.18,Pain in left hip M25.552 Onset 1 year ago Subjective Information Pt was called and informed he discharged from PT services due to the no call, no show cancelation policy. Assessment PT Clinical Summary Pt was seen for initial evaluation but did not come for any treatment session and was discharged from PT services due to 3 consecutive no call no shows. Plan of Care PT Services Indicated No
== END 2025-04-03 09:21 | disposition home or self-care (01) ==
LOC: ANHGOSHPT 12:24
PROVIDERS: PCP Internal Medicine; Visit Provider Nurse Practitioner
DX: M25.552 Pain in left hip (principal); M53.3 Sacrococcygeal disorders, not elsewhere classified
CPT/HCPCS: 97110; 97140; 97161

== ENCOUNTER 2025-04-03 09:56 | Inpatient (IN) | payer MEDICARE, SELFPAY ==
[2025-04-03] VITALS (15 sets, daily range): BP systolic 115–180; BP diastolic 75–120; PULSE 97–121; RESP 14–36; TEMP 36.4–37.1; O2SAT 90–100; BMI 35.2
--- NOTE | ~2025-04-03 | CT_ITS ---
CT chest abdomen pelvis wo con Ordering provider: Rony Rebolledo MD History: . sepsis, abd pain . Comparison: None. Technique: CT chest without IV contrast. CT abdomen and pelvis without oral and IV contrast. Radiatio n reduction technique utilized. The dose-length product was 1917.29 mGy-cm. FINDINGS: The study is limited due to lack of IV contrast. CHEST: Motion artifacts are markedly degraded the images. --VISUALIZED THORACIC INLET: Normal as visualized. --MEDIASTINUM: Aorta/coronary arteries: Mild atheromatous disease. Heart/other: The heart is not enlarged. Lymph nodes: No mediastinal or hilar adenopathy. --LUNGS: pneumonia is seen in the left upper lobe. A trace of right pleural effusion with adjacent at electasis seen. No pulmonary nodules or masses. No infiltrates or effusions. No pneumothorax. --MUSCULOSKELETAL: Soft tissues: The superficial soft tissues are normal. Bones: Age appropriate degenerative changes of the spine. ABDOMEN/PELVIS: --MUSCULOSKELETAL: Bones: Age appropriate degenerative changes of the spine. Superficial soft tissues: Bilateral fat containing inguinal hernias. Postoperative changes in the mid line of the abdomen. Otherwise, The superficial soft tissues are normal. Possible fracture in the rig ht transverse process of L4. --UPPER ABDOMINAL ORGANS: Liver: Normal. Gallbladder: Normal. Spleen: Normal. Stomach/duodenum: Normal. Pancreas: Normal. Atrophic. Adrenals: Normal. Kidneys: Normal. Prominent fat around the left kidney is seen compared to the right. --PELVIC ORGANS: The bladder is underfilled with Fitzpatrick's catheter seen in the bladder. --BOWEL AND MESENTERY: Colon: No evidence of diverticulitis. Postoperative changes seen in the large bowel with dilatation i n the area. No obstruction seen Follow-up advised.. Appendix is not seen. Small Bowel: Normal. No obstruction. Peritoneum/mesentery: No free air or free fluid. No mesenteric lymphadenopathy. --RETROPERITONEUM: Mild atheromatous disease of the abdominal aorta. No retroperitoneal lymphadenop athy. IMPRESSION: CHEST: 1. Highly suggestive pneumonia in the left upper lobe. 2. Trace of right pleural effusion with adjacent atelectasis. ABDOMEN/PELVIS: 1. No evidence of intestinal obstruction seen. Focal dilatation in the area of the bowel surgery is noted. Clinical correlation and follow-up advised. 2. Bilateral fat containing inguinal hernias. Reviewed, dictated and finalized at location A.
--- NOTE | ~2025-04-03 | CT_ITS ---
EXAM: CT diagnostic chest wo con - 04/03/2025 15:05 CDT History: 64 years old Male with pulmonary edema vs PNA TECHNIQUE: CT scan of the chest without IV contrast. Coronal and sagittal reformats were also provide d for review. Automatic exposure control was used for this study. COMPARISON: 04/25/2024. FINDINGS: Evaluation is limited secondary to artifact caused by the patient's motion. LINES AND DEVICES: None. VISUALIZED LOWER NECK: Thyroid gland appears normal. No supraclavicular lymphadenopathy. AIRWAYS: Patent centrally. LUNGS and PLEURA: Scattered areas of honeycombing, groundglass opacities, and airspace opacities are seen in both lungs. Right pleuroparenchymal thickening is also noted. MEDIASTINUM and NEYDA: No hilar or mediastinal lymphadenopathy. No mediastinal mass is seen. Esophagus appears normal. HEART AND PERICARDIUM: Cardiac chambers are normal in size. No pericardial fluid or thickening is pre sent. Mild atherosclerotic of the coronary arteries. VASCULATURE: Thoracic aorta and pulmonary arteries are normal in caliber. CHEST WALL: No supraclavicular or axillary lymphadenopathy. MUSCULOSKELETAL: No acute osseous abnormality. UPPER ABDOMEN: Unremarkable. IMPRESSION: Scattered areas of honeycombing, groundglass opacities, and airspace opacities are seen in both lungs . Right pleuroparenchymal thickening is also noted. Findings likely represent an infectious/inflammat ory process. Clinical correlation is recommended. Short term follow-up chest radiograph is recommende d after appropriate clinical therapy. Reviewed, dictated and finalized at location A. IMPRESSION: Scattered areas of honeycombing, groundglass opacities, and airspace opacities are seen in both lungs. Right pleuroparenchymal thickening is also noted. Findi ngs likely represent an infectious/inflammatory process. Clinical correlation i s recommended. Short term follow-up chest radiograph is recommended after appro priate clinical therapy.
--- NOTE | ~2025-04-03 | XR_ITS ---
EXAMINATION: XR lumbar puncture diagnostic DATE: 04/06/2025 15:03 INDICATION: Altered mental status and fever. TECHNIQUE: The procedure including the risks and benefits was discussed with the patient mother who p rovided written consent. Risks discussed included nerve injury, cerebrospinal fluid leak, bleeding, a nd infection. The patient understood the risks and agreed to proceed. A timeout was performed to v erify the patient's name, date of , and procedure to be performed. The skin overlying the L3-L4 level was prepped and draped in usual sterile fashion. Subcutaneous 1% lidocaine was used for local anesthesia. A 22 gauge spinal needle was advanced under fluoroscopic guidance. The needle was remov ed and the entry site was cleaned and dressed. There were no immediate complications. A total of 2 f luoroscopic images and one crosstable lateral radiograph were obtained. The amount of fluoroscopy juanito e used during this procedure was 0.4 minutes. Total DAP was 19.686 mGycm^2 The patient was taken to the nursing area for observation. FINDINGS: Real-time fluoroscopy demonstrates the needle at the L3-L4 level. Opening pressure was 13 c m water. (Normal range is variably defined as 6-20 cm water and up to 25 cm water in obese patients. Pressure >25 cm water is one of the modified Dandy criteria for idiopathic intracranial hypertension) . 14 mL of clear, colorless fluid was collected in 4 tubes. IMPRESSION: 1. Successful fluoro-guided lumbar puncture with normal opening pressure of 13 cm water. Reviewed, dictated and finalized at location A.
--- NOTE | ~2025-04-03 | XR_ITS ---
EXAM/PROCEDURE: XR chest 1V portable - 04/03/2025 13:00 CDT HISTORY: 64 years old Male with confusion UNABLE TO SIT CONTROL MOVEMENTS TECHNIQUE: Two view(s) of the chest. COMPARISON: None available. FINDINGS: LUNGS/ PLEURA: Diffuse bilateral airspace disease. Probable small left pleural effusion. No pneumotho rax. HEART/ MEDIASTINUM: Mild cardiomegaly. BONES: Degenerative changes. OTHER: Visualized upper abdomen is unremarkable. IMPRESSION: Diffuse bilateral airspace disease. Findings can represent diffuse pulmonary edema versus multifocal pneumonia in appropriate clinical settings. Short-term follow-up chest radiograph is recommended afte r appropriate clinical therapy. Reviewed, dictated and finalized at location A. IMPRESSION: Diffuse bilateral airspace disease. Findings can represent diffuse pulmonary ed mandeep versus multifocal pneumonia in appropriate clinical settings. Short-term fo llow-up chest radiograph is recommended after appropriate clinical therapy.
--- NOTE | ~2025-04-03 | CT_ITS ---
EXAM: CT brain wo con - 04/03/2025 10:50 CDT History: 64 years old Male with AMS COMPARISON: 10/18/2017 PROCEDURE: CT of the head without contrast. Axial, sagittal and coronal reformatted planes were eden luated. Automatic exposure control was used for this study. FINDINGS: BRAIN PARENCHYMA: No acute hemorrhage. No mass effect or herniation. Guzman-white matter differentiatio n is maintained. Mild chronic volume loss. Scattered hypodensities in subcortical and periventricular white matter, likely representing chronic microvascular ischemic changes in this age group. Atherosc lerotic calcification of the intracranial vessels is noted. VENTRICLES/ EXTRA-AXIAL SPACES: No hydrocephalus or extra-axial fluid collection. EXTRACRANIAL STRUCTURES: No calvarial fracture. IMPRESSION: No evidence for acute intracranial hemorrhage or calvarial fracture. Reviewed, dictated and finalized at location A.
--- NOTE | ~2025-04-03 | MR_ITS ---
EXAMINATION: MR brain/brain stem wo/w con DATE: 04/06/2025 13:09 INDICATION: Altered mental status and new dysphagia TECHNIQUE: Magnetic resonance imaging (MRI) of the brain and brainstem was performed without and with 19 mL Multihance intravenous contrast. Sequences included sagittal and axial T1-weighted SE, axial d iffusion-weighted FS SE, axial 3D SWAN, axial T2-weighted FLAIR, and axial T2-weighted FSE. Postcontr ast axial and coronal T1-weighted SE was obtained. Apparent diffusion coefficient (ADC) maps were cre ated. COMPARISON: None. FINDINGS: There are no areas of restricted diffusion to suggest acute infarction. No intracranial hemorrhage or abnormal intracranial mass lesion. There is mild increased T2 signal in the bilateral parieto-occipi casandra regions which could be due to chronic small vessel ischemic disease although the distribution als o raises possibility of posterior reversible encephalopathy syndrome (PRES). There are no intraparenc hymal signal abnormalities seen on the other pulse sequences. The ventricles are symmetric and normal in size. There are no abnormal extra-axial fluid collections. Flow voids are seen in the cerebral ar teries on the T2-weighted sequences consistent with their expected patency. Visualized orbits and sof t tissues are unremarkable. There are no areas of abnormal enhancement on the post contrast images. IMPRESSION: 1. Mild increased T2 signal intensity in the bilateral parieto-occipital regions suspicious for poste rior reversible encephalopathy syndrome (PRES) typically presenting with headaches, seizures, encepha lopathy and visual disturbance. This could result from severe hypertension, sepsis, alcohol hepatitis , hyperammonemia, drug toxicity, hemolytic uremic syndrome or thrombocytopenic thrombotic purpura. Reviewed, dictated and finalized at location A. IMPRESSION: 1. Mild increased T2 signal intensity in the bilateral parieto-occipital region s suspicious for posterior reversible encephalopathy syndrome (PRES) typically presenting with headaches, seizures, encephalopathy and visual disturbance. Thi s could result from severe hypertension, sepsis, alcohol hepatitis, hyperammone fartun, drug toxicity, hemolytic uremic syndrome or thrombocytopenic thrombotic pu rpura.
--- NOTE | 2025-04-03 10:04 | ECG_ITS ---
Test Date: 2025-04-03 10:31:20 Measurements Intervals [place] Rate: 116 P: 20 VA: 154 QRS: -61 QRSD: 102 T: 44 QT: 386 QTc: 537 Interpretive Statements SINUS TACHYCARDIA INDETERMINATE AXIS INCOMPLETE RIGHT BUNDLE BRANCH BLOCK [90+ ms QRS DURATION, TERMINAL R IN V1/V2, 40+ ms S IN I/aVL/V4/V5/V6] BORDERLINE ECG No previous ECG available for comparison Electronically Signed On 04-04-2025 07:29:28 CDT by Christ Tao M.D.
[2025-04-03] MEDS: LORazepam INJ (*CRX) 2 MG/ML VIAL IV PUSH ×2 (10:25→11:35)
--- OUTSIDE RECORDS SUMMARY | 2025-04-03 10:25 | XMS_ITS | Clinical Summary ---
Author Organization [facility] Address [address], [address] [address] Phone Care Team Providers Care Manager Family Name Role Phone Wilbert Jones MD Primary Care Provider [phone] Aries Chu DO Unavailable Horace Velazco MD Unavailable Medications polyethylene glycol (MIRALAX) Powder Mix the entire bottle with 64 oz of a clear liquid. Use as directed by the office for colonoscopy prep. 255 g 0 7 Active Social History Tobacco Use Types Packs/Day Years Used Date Smoking Tobacco: Never Assessed Sex and Gender Information Value Date Recorded Sex Assigned at Not on file Legal Sex Male 9:06 PM CDT Gender Identity Not on file Sexual Orientation Not on file Plan of Treatment Health Maintenance Due Date Last Done Comments Hepatitis C Virus (HCV) Screening 1960 TdaP Immunization 1961 Cologuard 2006 Colonoscopy 2006 Colorectal Cancer Screening 2006 Immunochemical Fecal Occult Blood 2006 Pneumococcal Immunization (5 0+ years) (1 of 1 - PCV) 2011 Zoster Immunization (1 of 2) 2011 SARS-COV-2 Immunization (1 - season) 2024 Influenza Immunization (#1) 2025 Respiratory Syncytial Virus (RSV) Immunization (Adult) (1 - 1-dose 75+ series) 2036 Hepatitis B Immunization Aged Out No longer eligible based on patient's age to complete this topic Human Papillomavirus (HPV) Immunization Aged Out No longer eligible b ased on patient's age to complete this topic Meningococcal Immunization (ACWY) Aged Out No longer eligible based on patient's age to complete this topic Rotavirus Immunization Aged Out No lo nger eligible based on patient's age to complete this topic Insurance MEDICAID [employer] Care Teams Manager Family Relationship Specialty Start Date End Date Wilbert Joens MD [address] [place] [phone] PCP - General Family Medicine 10/26/17 Aries Chu DO [address] [place] [id number] Gastroenterology 10/26/17 Horace Velazco MD [address] [place] [phone] Family Medicine 10/26/17
--- OUTSIDE RECORDS SUMMARY | 2025-04-03 10:25 | XMS_ITS | Clinical Summary ---
Author Organization [facility] Address [address] [place] [address] Care Team Providers Care Pay Station Department Manager Name Role Phone Juancho Noonan MD Primary Care Provider Unavailabl e Allergies No known active allergies Medications buprenorphine-n aloxone 8-[address] 1 Film under the tongue 2 (two) times a day. 0 Active esomeprazole (NEXIUM 24HR) 20 MG capsule Take 1 capsule by mouth daily. 5 Active venlafaxine XR 150 MG 24 hr capsule Take 1 capsule by mouth daily. 5 Active traMADol 50 MG tablet Take 1 tablet by mouth 3 (three) times daily. 5 Active tiZANidine 4 MG tablet Take 4 mg by mouth every 6 (six) hours as needed. 5 Active tadalafil (CIALIS) 10 MG tablet Take 10 mg by mouth as needed for Erectile Dysfunction. 4 Active propranolol 20 MG tablet Take 1 tablet by mouth 2 (two) times daily. 5 Active lisinopril 20 MG tablet Take 1 tablet by mouth daily. 5 Active metoprolol tartrate 25 MG tablet Take 25 mg by mouth 2 (two) times daily. Active atorvastatin 20 MG tablet Take 20 mg by mouth daily. 0 Active clobetasol 0.05 % cream APPLY CREAM TOPICALLY TWICE DAILY TO HANDS LEGS AND FEET NEEDED 0 Active Teodoro Carb-Mag Hydrox-Simeth (ROLAIDS ADVANCED OR) Take 1 capsule by mouth 2 (two) times daily as needed. Active Active Problems Problem Noted Date Diagnosed Date Epigastric pain 06/17/2020 Dyspepsia 06/17/2020 Chronic pain disorder 06/17/2020 Hyperlipidemia, unspecified hyperlipidemia type 05/24/2020 Neuropathy 05/24/2020 Attention to ileostomy ([facility]) 018 Incisional hernia, without obstruction or gangre ne 07/21/2018 Hypercalcemia 08/06/2016 BMI 27.0-27.9,adult 05/11/2016 Overview (05/23/2020): Transitioned From: Overweight Male erectile dysfunction, unspecified 6 Acid reflux disease 02/07/2015 Nicotine dependence 02/07/2015 Anxiety 02/06/2015 Cervical pain (neck) 02/06/2015 Depression 02/06/2015 Hypertension 02/06/2015 Insomnia, uncontrolled 02/06/2015 Encounter for preventive health examination 01/25 Overview (05/23/2020): Transitioned From: senior care use of drug Immunizations Immunization Administration Dates Next Due Tdap (Generic) 08/27/2018,09/27/2009 Family History Medical History Relation Comments Hypertension Brother Hypertension Father [place] Father Alzheimers Paternal Grandmother Relation Status Comments Brother Father Paternal Grandmother Social History Tobacco Use Types Packs/Day Years Used Date Smoking Tobacco: Every Day Cigarettes 1 30 Smokeless Tobacco: Never Alcohol Use Standard Drinks/Week Comments Not Currently 0 (1 standard drink = 0.6 oz pur e alcohol) Sex and Gender Information Value Date Recorded Sex Assigned at Not on file Legal Sex Male 5:52 PM CDT Gender Identity Not on file Sexual Orientation Not on file Last Filed Vital Signs Vital Sign Reading Time Taken Comments Blood Pressure 136/84 06/17/2020 1:50 PM CDT Pulse 111 06/17/2020 1:50 PM CDT Temperature 36.8 C (98.3 F) 06/17/2020 1:50 PM CDT Respiratory Rate 18 06/17/2020 1:50 PM CDT Oxygen Saturation 98% 06/17/2020 1:50 PM CDT Inhaled Oxygen Concentration - - Weight 105.2 kg (232 lb) 06/17/2020 1:50 PM CDT Height 177.8 cm (5' 10) 06/17/2020 1:50 PM CDT Body Mass Index 33.29 06/17/2020 1:50 PM CDT Plan of Treatment Health Maintenance Due Date Last Done Comments Colorectal Cancer Screening Colonoscopy (10 Years) 1961 Annual Physical 1964 Hepatitis C 1979 Pneumococcal Vaccine: 50+ Years (1 of 2 - PCV) 1980 Zoster Vaccines (1 of 2) 2011 COVID-19 Vaccine (1 - 2023-2 5 season) 2024 DTaP, Tdap and Td Vaccines ( 3 - Td or Tdap) 08/27/2028 08/27/2018, 09/27/2009 RSV Immunization or 60+ Years (1 - 1-dose 75+ series) 2036 Colorectal Cancer Screening Flex Sig (5 Years) Discontinued 05/06/2018 Meningococcal B Vaccine Aged Out No l onger eligible based on patient's age to complete this topic Meningococcal Vaccine Aged Out No alberto gil eligible based on patient's age to complete this topic RSV Immunizations Under 20 Months Aged Out No longer eligible based on patient's age to complete this topic Procedures Procedure Name Priority Date/Time Associated Diagnosis Comments FLEX SIG (SCAN ORDER) Routine 05/06/2018 from Last 3 Months or Most Recently Relevant to Health Maintenance Results * FLEX SIG (05/06/2018) us Documents Scanned SCANNING Final Result Performing Organization Address City/State/ZIP Co mo Phone Number [facility] from Last 3 Months or Most Recently Relevant to Health Maintenance Insurance [employer] Care Teams Pay Station Department Manager Relationship Specialty Start Date End Date Juancho Noonan MD PCP - General FAMILY MEDICINE SPORTS MEDICINE 05/22/20
--- OUTSIDE RECORDS SUMMARY | 2025-04-03 10:25 | XMS_ITS | Data Portability ---
Author Organization [facility] Address [address] [facility] [facility] [place] [address] Care Team Providers Care Program Management Intern Name Role Phone TAVO BECKFORD Tuna Purse Seiner Assessment No assessment recorded. Plan of Treatment Reminders Order Date Submit Date Provider Last Modified By Organization Details Last Modified Time Details Appointments None recorded. Lab HbA1c (hemoglobi n A1c), blood 2019 020 KP Monte, 2022 Isabel Aguirre, [address], [place], [address], 0 06:21:59 platelets, auto, blood 2019 020 KP Monte, 2022 Isabel Aguirre, [address], [place], [address], 0 06:22:00 lipid panel, serum 2019 020 KP Monte, 2022 Isabel Aguirre, [address], [place], [address], 0 06:28:17 CBC w/ auto diff 2019 020 KP oMnte, 2022 Isabel Aguirre, [address], [place], [address], 0 06:28:16 PSA, total, serum or plasma 2019 020 KP Monte, 2022 Isabel Aguirre, [address], [place], [address], 0 06:28:18 CMP, serum or plasma 2019 [facility], 2022 Isabel Aguirre, [address] [address], [place], [address], 0 06:28:16 Referral dermatolog ist referral - Please call patient to schedule appt. thank you 2019 020 KP Gavin MD, [address] [facility] , [place], [address], 0 12:33:03 dermatolog ist referral - Chronic lesion right palm/ Please call patient to schedule appt. Thank you 2018 019 [email or web address] Not available 9 09:07:04 Procedures None recorded. Surgeries None recorded. Imaging CT, abdomen + pelvis, w/o contrast - Severe LLQ abdominal pain, history of multiple abdominal surgeries (Refused contrast) 2019 [facility], [address] [place], [address], 0 16:46:21 LDCT, chest, for lung cancer screening 2019 [facility] ([facility]), [address] [place], [address], 0 10:31:34 MRI, cervical spine, w/o contrast - Neck pian with bilateral UE radiculopa thy 2018 019 [facility], [address] [place] [address] [address], [place], [address], 9 15:40:12 Medication Orders clobetasol 0.05 % topical cream 2019 020 [id number], [address], [place], [place], [id number], 0 15:45:05 Keflex 500 mg capsule 2019 020 [id number], [address], [place], [address], 0 15:16:39 Patient TargetsNo targets recorded. Patient Instructions Encounter Date Encounter Id Patient Instructions Last Modified By Organization Details Last Modified Time 01/20/2019 [id number] Quitting Tobacco : Care Instructions oajao Not available 01/20/2019 16:23:30 cervical disc disease: care instructions oajao Not available 01/20/2019 16:14:33 Labs Follow up Dermatology oajao Not available 01/20/2019 17:36:01 I have explained to him that I do not offer opinions about disability and that he is free to have his records sent. oajao Not available 01/20/2019 17:36:43 04/07/2019 [id number] Labs and MRI as previously ordered [place] Tobacco Quitline Follow up in 5-6 months and PRN oajao Not available 04/07/2019 13:24:38 11/06/2019 [id number] Quitting Tobacco : Care Instructions oajao Not available 11/06/2019 13:04:51 learning about high blood pressure oajao Not available 11/06/2019 13:05:54 HIV testing: car sigrid instructions oajao Not available 11/06/2019 13:07:44 skin lesions: care instructions oajao Not available 11/06/2019 13:02:36 Colonoscopy report from [facility], please Labs Stop smoking Follow up in 3 weeks Keflex, side effects were discussed oajao Not available 11/06/2019 13:37:25 He apparently davison d a colonoscopy done at [facility] oajao Not available 11/06/2019 13:37:55 12/12/2019 [id number] rash: care instructions oajao Not available 12/12/2019 15:44:[address] Labs Follow up in 1-2 weeks ER with worsening of his pain Dermatology Clobetasol Addendum 12/12/2019 3:32 pm He refused IV contrast, I will reorder the CT scan oajao Not available 12/12/2019 16:33:57 He has refused I M and PO Ketorolac oajao Not available 12/12/2019 15:48:00 05/21/2020 [id number] prediabetes: car sigrid instructions oarudy Not available 05/21/2020 13:19:11 BP check I need to confirm who has been prescribing his Gabapentin Follow up in 6 months tosin Not available 05/21/2020 13:18:41 Reason for Referral Crystal Calibrator Referral for S kin lesion Chronic lesion right palm Chronic lesion right palm/ Please call patient to schedule appt. Thank you Referring Physician: Kailyn Casiano, Internal Medicine, Encounter Date: 01/20/2019 Crystal Calibrator Referral for M elanocytic nevus Lesion left cheek. Rash right palm, right fooot Please call patient to schedule appt. thank you Referring Physician: Kailyn Casiano, Internal Medicine, Encounter Date: 12/12/2019 Results Created Date Observation Date Name Description Value Unit Range Abnormal Flag Note LastModifiedBy Organization Detail LastModifiedTime 11/23/19 20 11/24/2019 CBC w/ auto diff WBC 8.1 x10e3 /uL 3.4-10 .8 Not Available [facility] ([facility]) [address] [place], [address], 11/24/2019 06:28:16 11/23/1911/24/2019 CBC w/ auto diff RBC 5.14 x10e6 /uL 4.14-5 .80 Not Available [facility] ([facility]) [address] [place], [address], 11/24/2019 06:28:16 11/23/1911/24/2019 CBC w/ auto diff hemoglobin 15.3 g/dL 13.0-1 7.7 Not Available [facility] ([facility]) [address] [place], [address], 11/24/2019 06:28:16 11/23/1911/24/2019 CBC w/ auto diff hematocrit 44.7 % 37.5-5 1.0 Not Available [facility] ([facility]) [address] [place], [address], 11/24/2019 06:28:16 11/23/19 20 11/24/2019 CBC w/ auto diff MCV 87 fL 79-97 Not Available [facility] ([facility]) [address] [facility], [place], [address], 11/24/2019 06:28:16 11/23/19 20 11/24/2019 CBC w/ auto diff MCH 29.8 pg 26.6-3 3.0 Not Available [facility] ([facility]) [address] [place], [address], 11/24/2019 06:28:16 11/23/19 20 11/24/2019 CBC w/ auto diff MCHC 34.2 g/dL 31.5-3 5.7 Not Available [facility] ([facility]) [address] [place], [address], 11/24/2019 06:28:16 11/23/19 20 11/24/2019 CBC w/ auto diff RDW 14.9 % 11.6-1 5.4 Not Available [facility] ([facility]) [address] [place], [address], 11/24/2019 06:28:16 11/23/19 20 11/24/2019 CBC w/ auto diff platelets 149 x10e3 /uL 150-45 0 below low normal Not Available [facility] ([facility]) [address] [place], [address], 11/24/2019 06:28:16 11/23/19 20 11/24/2019 CBC w/ auto diff neutrophils 64 % not estab. Not Available [facility] ([facility]) [address] [place], [address], 11/24/2019 06:28:16 11/23/19 20 11/24/2019 CBC w/ auto diff lymphs 27 % not estab. Not Available [facility] ([facility]) [address] [place], [address], 11/24/2019 06:28:16 11/23/19 20 11/24/2019 CBC w/ auto diff monocytes 5 % not estab. Not Available [facility] ([facility]) [address] [facility], [place], [address], 11/24/2019 06:28:16 11/23/19 20 11/24/2019 CBC w/ auto diff eos 4 % not estab. Not Available [facility] ([facility]) [address] [facility], [place], [address], 11/24/2019 06:28:16 11/23/19 20 11/24/2019 CBC w/ auto diff basos 0 % not estab. Not Available [facility] ([facility]) [address] [facility], [place], [address], 11/24/2019 06:28:16 11/23/19 20 11/24/2019 CBC w/ auto diff immature cells SPEEDBOAT OPERATOR Not Available [facility] ([facility]) [address] [facility], [place], [address], 11/24/2019 06:28:16 11/23/19 20 11/24/2019 CBC w/ auto diff neutrophils (absolute) 5.1 x10e3 /uL 1.4-7. 0 Not Available [facility] ([facility]) [address] [place], [address], 11/24/2019 06:28:16 11/23/19 20 11/24/2019 CBC w/ auto diff lymphs (absolute) 2.2 x10e3 /uL 0.7-3. 1 Not Available [facility] ([facility]) [address] [place], [address], 11/24/2019 06:28:16 11/23/19 20 11/24/2019 CBC w/ auto diff monocytes(ab solute) 0.4 x10e3 /uL 0.1-0. 9 Not Available [facility] ([facility]) [address] [facility], [place], [address], 11/24/2019 06:28:16 11/23/19 20 11/24/2019 CBC w/ auto diff eos (absolute) 0.3 x10e3 /uL 0.0-0. 4 Not Available [facility] ([facility]) [address] [facility], [place], [address], 11/24/2019 06:28:16 11/23/19 20 11/24/2019 CBC w/ auto diff baso (absolute) 0.0 x10e3 /uL 0.0-0. 2 Not Available [facility] ([facility]) [address] [facility], [place], [address], 11/24/2019 06:28:16 11/23/19 20 11/24/2019 CBC w/ auto diff immature granulocytes 0 % not estab. Not Available [facility] ([facility]) [address] [facility], [place], [address], 11/24/2019 06:28:16 11/23/19 20 11/24/2019 CBC w/ auto diff immature grans (abs) 0.0 x10e3 /uL 0.0-0. 1 Not Available [facility] ([facility]) [address] [facility], [place], [address], 11/24/2019 06:28:16 11/23/19 20 11/24/2019 CBC w/ auto diff NRBC SPEEDBOAT OPERATOR Not Available [facility] ([facility]) [address] [facility], [place], [address], 11/24/2019 06:28:16 11/23/1911/24/2019 CBC w/ auto diff hematology comments: SPEEDBOAT OPERATOR Not Available [facility] ([facility]) [address] [facility], [place], [address], 11/24/2019 06:28:16 11/23/19 20 11/24/2019 CMP, serum or plasm a glucose 137 mg/dL 65-99 above high normal Not Available [facility] ([facility]) [address] [facility], [place], [address], 11/24/2019 06:28:16 11/23/19 20 11/24/2019 CMP, serum or plasm a BUN 16 mg/dL 6-24 Not Available [facility] ([facility]) [address] [place], [address], 11/24/2019 06:28:16 11/23/19 20 11/24/2019 CMP, serum or plasm a creatinine 1.00 mg/dL 0.76-1 .27 Not Available [facility] ([facility]) [address] [facility], [place], [address], 11/24/2019 06:28:16 11/23/19 20 11/24/2019 CMP, serum or plasm a eGFR if nonafricn AM 83 mL/mi n/1.7 3 >59 Not Available [facility] ([facility]) [address] [place], [address], 11/24/2019 06:28:16 11/23/19 20 11/24/2019 CMP, serum or plasm a eGFR if africn AM 95 mL/mi n/1.7 3 >59 Not Available [facility] ([facility]) [address] [place], [address], 11/24/2019 06:28:16 11/23/19 20 11/24/2019 CMP, serum or plasm a BUN/creatini ne ratio 16 9-20 Not Available [facility] ([facility]) [address] [place], [address], 11/24/2019 06:28:16 11/23/19 20 11/24/2019 CMP, serum or plasm a sodium 141 mmol/ L 134-14 4 Not Available [facility] ([facility]) [address] [place], [address], 11/24/2019 06:28:16 11/23/19 20 11/24/2019 CMP, serum or plasm a potassium 4.8 mmol/ L 3.5-5. 2 Not Available [facility] ([facility]) [address] [facility] [place], [address], 11/24/2019 06:28:16 11/23/19 20 11/24/2019 CMP, serum or plasm a chloride 102 mmol/ L 96-106 Not Available [facility] ([facility]) [address] [place], [address], 11/24/2019 06:28:16 11/23/19 20 11/24/2019 CMP, serum or plasm a carbon dioxide, total 22 mmol/ L 20-29 Not Available [facility] ([facility]) [address] [facility] [place], [address], 11/24/2019 06:28:16 11/23/1911/24/2019 CMP, serum or plasm a calcium 9.1 mg/dL 8.7-10 .2 Not Available [facility] ([facility]) [address] [facility] [place], [address], 11/24/2019 06:28:16 11/23/1911/24/2019 CMP, serum or plasm a protein, total 7.3 g/dL 6.0-8. 5 Not Available [facility] ([facility]) [address] [place], [address], 11/24/2019 06:28:16 11/23/1911/24/2019 CMP, serum or plasm a albumin 4.5 g/dL 3.8-4. 9 Not Available [facility] ([facility]) [address] [place], [address], 11/24/2019 06:28:16 11/23/1911/24/2019 CMP, serum or plasm a globulin, total 2.8 g/dL 1.5-4. 5 Not Available [facility] ([facility]) [address] [place], [address], 11/24/2019 06:28:16 11/23/19 20 11/24/2019 CMP, serum or plasm a A/G ratio 1.6 1.2-2. 2 Not Available [facility] ([facility]) [address] [facility] [place], [address], 11/24/2019 06:28:16 11/23/19 20 11/24/2019 CMP, serum or plasm a bilirubin, total 0.7 mg/dL 0.0-1. 2 Not Available [facility] ([facility]) [address] [facility] [place], [address], 11/24/2019 06:28:16 11/23/19 20 11/24/2019 CMP, serum or plasm a alkaline phosphatase 87 IU/L 39-117 Not Available [facility] ([facility]) [address] [place], [address], 11/24/2019 06:28:16 11/23/19 20 11/24/2019 CMP, serum or plasm a AST (SGOT) 21 IU/L 0-40 Not Available [facility] ([facility]) [address] [place], [address], 11/24/2019 06:28:16 11/23/19 20 11/24/2019 CMP, serum or plasm a ALT (SGPT) 20 IU/L 0-44 Not Available [facility] ([facility]) [address] [place], [address], 11/24/2019 06:28:16 11/23/19 20 11/24/2019 lipid panel , serum cholesterol, total 166 mg/dL 100-19 9 Not Available [facility] ([facility]) [address] [place], [address], 11/24/2019 06:28:17 11/23/19 20 11/24/2019 lipid panel , serum triglyceride s 217 mg/dL 0-149 above high normal Not Available [facility] ([facility]) [address] [facility], [place], [address], 11/24/2019 06:28:17 11/23/19 20 11/24/2019 lipid panel , serum HDL cholesterol 40 mg/dL >39 Not Available [facility] ([facility]) [address] [place], [address], 11/24/2019 06:28:17 11/23/19 20 11/24/2019 lipid panel , serum VLDL cholesterol charlette 43 mg/dL 5-40 above high normal Not Available [facility] ([facility]) [address] [facility] [place], [address], 11/24/2019 06:28:17 11/23/19 20 11/24/2019 lipid panel , serum LDL cholesterol calc 83 mg/dL 0-99 Not Available [facility] ([facility]) [address] [facility] [place], [address], 11/24/2019 06:28:17 11/23/19 20 11/24/2019 lipid panel , serum comment: SPEEDBOAT OPERATOR Not Available [facility] ([facility]) [address] [facility], [place], [address], 11/24/2019 06:28:17 11/23/19 20 11/24/2019 PSA, total , serum or plasm a prostate specific Ag, serum 0.3 NG/mL 0.0-4. 0 Sebastian ECLIA metho dolog y. Accor ding to the Ameri can [employer]o g[employer] iatio n, Serum PSA shoul d decre ase and remai n at undet ectab le level s after radic al prost atect estee. The AUA defin es bioch emica l recur rence as an initi al PSA value 0.2 ng/mL or great er follo wed by a subse quent confi rmato ry PSA value 0.2 ng/mL or great er. Value s obtai seth with diffe rent assay metho ds or kits canno t be used inter dawson eably . Resul ts canno t be inter prete d as absol stebbins evide nce of the prese nce or absen ce of gladis moya se. Not Available [facility] ([facility]) [address] [facility], [place], [address], 11/24/2019 06:28:18 12/12/19 20 12/13/2019 HbA1c (hemo globi n A1c), blood hemoglobin A1C 5.7 % 4.8-5. 6 above high normal Predi abete s: 5.7 - 6.4 Diabe krys: >6.4 Glyce grace contr ol for adult s with diabe krys: <7.0 Not Available [facility] ([facility]) [address] [facility], [place], [address], 12/13/2019 06:21:59 12/12/19 20 12/13/2019 plate lets, auto, blood platelets 151 x10e3 /uL 150-45 0 Not Available [facility] ([facility]) [address] [facility], [place], [address], 12/13/2019 06:22:00 12/29/19 19 12/28/2018 XR, cervi charlette spine No observ ation record ed. [facility] (Imaging) [address] [place], [address], 01/20/2019 16:12:26 12/29/19 19 12/28/2018 LDCT, chest , for lung cance r scree sruthi No observ ation record ed. [facility] (Imaging) [address] [place], [address], 04/07/2019 12:46:15 12/30/19 19 12/28/2018 XR, foot No observ ation record ed. [facility] ([facility]) [address] [place], [address], 01/20/2019 16:12:26 12/13/19 20 12/12/2019 CT, abdom en + pelvi s, w/ contr ast No observ ation record ed. [facility] (Imaging) [address] [facility], [place], [address], 05/21/2020 13:12:10 Result Notes None recorded. Problems Name Problem SNOMED Code Status Onset Date Resolution Date Notes Provider Name and Address Organization Details Recorded Time Chronic neck pain 7340706639063 Active 2018 Kailyn Casiano MD Attn: Adele dillard,[address] [place], [address], [facility] 9 17:12:06 Hypercholes terolemia 11577503 Active 2018 Kailyn Casiano MD Attn: Adele dillard,[address] [place], [address], [facility] 9 17:12:09 Chronic alcoholism in remission 555051276 Active 2018 Kailyn Casiano MD Attn: Adele dillard,[address] [place], [address], [facility] 9 17:12:19 Major depressive disorder 864911562 Active 2018 Kailyn Casiano MD Attn: Adele dillard,[address] [place], [address], [facility] 9 17:12:26 Hallux valgus AND bunion 151868155 Active 2018 Kailyn Casiano MD Attn: Adele dillard,[address] [place], [address], [place] [facility] 9 17:20:40 Stenosis of spinal canal due to interverteb ral disc 112441062 Active 2018 Kailyn Casiano MD Attn: Adele dillard,[address] [place], [address], [place] [facility] 9 17:32:25 Degeneratio n of cervical interverteb ral disc 28763589 Active 2018 Kailyn Casiano MD Attn: Adele dillard,[address] [facility], [place], [address], [place] [facility] 9 17:32:27 Edema 583603116 Active 2018 Kailyn Casiano MD Attn: Adele dillard,[address] [facility], [place], [address], [place] [facility] 9 17:32:28 Cervical radiculopat hy 50015179 Active 2018 Kailyn Casiano MD Attn: Rositajames dillard,[address] [facility], [place], [address], [place] [facility] 9 17:35:47 Thrombocyto penic disorder 395172359 Active 2019 Kailyn Casiano MD Attn: Rositajames dillard,[address] [facility], [place], [address], [place] [facility] 0 15:25:08 Impaired fasting glycemia 591887467 Active 2019 Kailyn Casiano MD Attn: Rositajames dillard,[address] [facility], [place], [address], [place] [facility] 0 15:25:11 Skin lesion 19300079 Active Moisés Gipsoncorine null, [place] [facility] 5 18:36:28 Nausea 592453257 Active Gaye valladares [place] null, [place] [facility] 4 15:01:28 Chronic back pain 104914779 Active Gaye valladares [place], [place] [facility] 4 15:01:28 Anxiety 76717122 Active Gaye valladares [place], [place] [facility] 4 15:01:28 Gastroesoph ageal reflux disease 749816412 Active Gaye valladares [place] [facility] 4 15:01:28 Uses less medication than prescribed 934327552 Active Gaye valladares [place], [place] [facility] 4 15:01:28 Neck pain 01216472 Active Gaye valladares MA null, [place] - [facility] 4 15:01:28 Depressive disorder 47047356 Active Gaye valladares MA null, [place] - [facility] 4 15:01:28 Acute sinusitis 64445038 Active Moisés Garza null, [place] [facility] 4 15:53:55 Essential hypertensio n 61949831 Active Moisés Garza null, [place] [facility] 5 18:36:28 Impotence of organic origin Active Moisés Garza null, [place] [facility] 4 15:53:55 Tobacco user 392870161 Active Moisés Garza null, [place] - [facility] 5 10:18:27 Problem Notes None recorded. Procedures Surgical History Date Name Laterality Status Provider Name and Address Organization Details Recorded Time 05/06/20 18 colonoscopy completed Kailyn Casiano MD Attn: Accounting,[address] [place], [address], [facility] 12/12/2019 18:38:05 09/27/18 96 excision of bunion completed Kailyn Casiano MD Attn: Accounting,[address] [place], [address], [facility] 11/01/2018 11:23:44 Other completed Gaye niya [place] 09/12/2014 15:01:28 Other completed Gaye Sandhu [place] - [facility] 09/12/2014 15:01:28 excision of cervical intervertebral disc completed Kailyn Casiano MD Attn: Accounting,[address] [place], [address], [facility] 11/01/2018 11:24:27 laparotomy completed Kailyn Casiano MD Attn: Accounting,[address] [place], [address], [facility] 11/01/2018 11:25:16 Imaging Results None recorded. Procedure Notes None recorded. Medical Equipment None Reported. Allergies No known drug allergies Medications Name Sig Start Date Stop Date Status Note LastModified by Organization Details LastModified Time multivita min tablet Take 1 tablet(s ) every day by oral route as directed for 30 days. 2018 active Not Available Not Available Not Avai lable gabapenti n 600 mg tablet Take 1 tablet 4 times a day by oral route for 30 days. active Not Available Not Available No t Available atorvasta tin 20 mg tablet Take 1 tablet(s ) every day by oral route as directed for 90 days. active Not Available Not Available No t Available venlafaxi ne 75 mg tablet 11/01 completed Not Available Not Available Not Available clindamyc in HCl 300 mg capsule 12/11 completed Not Available Not Available Not Available Tab-A-Vit e tablet 12/11 completed Not Available Not Available Not Available azithromy héctor 250 mg tablet active Not Available Not Available No t Available tizanidin e 4 mg tablet 2 po TID prn 11/01 completed Not Available Not Available Not Available metoprolo l succinate ER 50 mg tablet,ex tended release 24 hr Take 1 tablet every day by oral route. active Not Available Not Available No t Available hydrocodo ne 5 mg-acetam inophen 325 mg tablet 11/01 completed Not Available Not Available Not Available methylphe nidate 20 mg tablet Take 1 tablet 3 times a day by oral route for 30 days. 05/21 completed Not Available Not Available Not Available senna 8.6 mg tablet 11/01 completed Not Available Not Available Not Available lisinopri l 20 mg tablet Take 1 tablet every day by oral route. 11/01 completed Not Available Not Available Not Available ondansetr on HCl 4 mg tablet prn nausea active Not Available Not Available No t Available sertralin e 100 mg tablet Take 1.5 tablets every day by oral route. 11/01 completed Not Available Not Available Not Available clobetaso l 0.05 % topical cream APPLY A THIN LAYER TO THE AFFECTED AREA(S) BY TOPICAL ROUTE 2 TIMES PER DAY active Not Available Not Available No t Available venlafaxi ne ER 150 mg capsule,e xtended release 24 hr Take 1 capsule every day by oral route as directed for 30 days. active Not Available Not Available No t Available hydroxyzi ne pamoate 50 mg capsule active Not Available Not Available Not Available metronida zole 500 mg tablet 11/01 completed Not Available Not Available Not Available sulfameth oxazole 800 mg-trimet hoprim 160 mg tablet 11/01 completed Not Available Not Available Not Available tramadol 50 mg tablet 11/01 completed Not Available Not Available Not Available ketorolac 10 mg tablet 05/21 completed Not Available Not Available Not Available meloxicam 7.5 mg tablet 11/01 completed Not Available Not Available Not Available propranol ol 10 mg tablet active Not Available Not Available Not Available lorazepam 0.5 mg tablet 11/01 completed Not Available Not Available Not Available chlordiaz epoxide 25 mg capsule active Not Available Not Available Not Available gabapenti n 800 mg tablet 05/21 completed Not Available Not Available Not Available trazodone 100 mg tablet 11/01 completed Not Available Not Available Not Available cephalexi n 500 mg capsule Take 1 capsule every 6 hours by oral route as directed for 7 days. 12/11 completed Not Available Not Available Not Available pantopraz ole 40 mg tablet,de layed release TAKE ONE TABLET BY MOUTH EVERY DAY active Not Available Not Available No t Available methylphe nidate ER 20 mg tablet,ex tended release 04/07 completed Not Available Not Available Not Available nicotine 21 mg/24 hr daily transderm al patch Apply 1 patch every day by transder mal route for 42 days. 2014 active Not Available Not Available Not Avai lable docusate sodium 100 mg capsule 11/01 completed Not Available Not Available Not Available gabapenti n 300 mg capsule 3 capsules QID 05/21 completed Not Available Not Available Not Available chlordiaz epoxide 10 mg capsule active Not Available Not Available Not Available folic acid 1 mg tablet One po daily 12/11 completed Not Available Not Available Not Available metoprolo l succinate ER 25 mg tablet,ex tended release 24 hr Take one tablet daily 09/12 completed Dose increase d to 50 mg. Not Available Not Available Not Available lorazepam 1 mg tablet 11/01 completed Not Available Not Available Not Available levofloxa héctor 500 mg tablet 11/01 completed Not Available Not Available Not Available propranol ol 20 mg tablet Take 1 tablet twice a day by oral route for 15 days. 11/01 completed Not Available Not Available Not Available amoxicill in 875 mg-potass ium clavulana te 125 mg tablet Take 1 tablet every 12 hours by oral route. 11/01 completed Not Available Not Available Not Available oxycodone 5 mg tablet 11/01 completed Not Available Not Available Not Available buprenorp malcolm 2 mg-naloxo ne 0.5 mg sublingua l tablet Place 2 tablets 4 times a day by sublingu al route. 01/20 completed Not Available Not Available Not Available buprenorp malcolm HCl 8 mg sublingua l tablet active Not Available Not Available Not Available LMX 4 4 % topical cream 11/01 completed Not Available Not Available Not Available bupropion HCl XL 150 mg 24 hr tablet, extended release 05/21 completed Not Available Not Available Not Available Cialis 10 mg tablet Take 1 tablet every day by oral route as needed. 11/01 completed Not Available Not Available Not Available metoprolo l tartrate 25 mg tablet (Mr Shirley has a new PCP) active Not Available Not Available No t Available duloxetin e 30 mg capsule,d elayed release Take 1 capsule every day by oral route. 11/01 completed Not Available Not Available Not Available Vitamin B1 active Not Available Not Available Not Available Nexium 24HR 22.3 mg capsule,d elayed release Take 1 capsule every day by oral route. 11/01 completed Not Available Not Available Not Available Vitals Date Recorded Body height Body mass index (BMI) Body weight Body temperature Oxygen saturation Oxygen saturation in Arterial blood by Pulse oximetry Heart rate Systolic And Diastolic Provider Name and Address Organization Details Last Updated DateTime 0 180.34 cm 29.7 kg/m2 24037.1 7 g 98.1 [degF] 96 % 96 % 92 /min 124/88 mm[Hg] Saloni Page [place] - [facility] 0 12:52:05 Date Recorded Body height Body mass index (BMI) Body weight Body temperature Oxygen saturation Oxygen saturation in Arterial blood by Pulse oximetry Heart rate Systolic And Diastolic Provider Name and Address Organization Details Last Updated DateTime 0 180.34 cm 31 kg/m2 664823. 51 g 98.4 [degF] 98 % 98 % 106 /min 146/94 mm[Hg] Ute Marsh [place] - [facility] 0 15:18:46 Date Recorded Body height Body mass index (BMI) Body weight Body temperature Heart rate Oxygen saturation Oxygen saturation in Arterial blood by Pulse oximetry Systolic And Diastolic Provider Name and Address Organization Details Last Updated DateTime 9 180.34 cm 28.2 kg/m2 60730.0 9 g 98.6 [degF] 96 /min 97 % 97 % 134/80 mm[Hg] Ute Marsh MA [facility] 9 15:49:47 Date Recorded Respiratory rate Provider Name a nd Address Organization Details Last Updated DateTime 04/07/2019 12 /min Kailyn Casiano MD Attn: Accounting[address] [place], [address], [facility] 04/07/2019 12:44:08 Date Recorded Body height Body mass index (BMI) Body weight Body temperature Heart rate Oxygen saturation Oxygen saturation in Arterial blood by Pulse oximetry Systolic And Diastolic Provider Name and Address Organization Details Last Updated DateTime 9 180.34 cm 27.9 kg/m2 57170.7 6 g 98 [degF] 96 /min 98 % 98 % 126/90 mm[Hg] Ute Marsh MA [facility] 9 12:37:36 Date Recorded Body height Provider Name an d Address Organization Details Last Updated DateTime 05/21/2020 180.34 cm Ute Marsh MA [facility] 020 13:04:24 Social History Question Answer Notes LastModified by Organizat ion Details LastModified Time Tobacco Smoking Status Current Every Day Smoker Gaye Sandhu MA null, [facility] 09/12/2014 15:01:29 What Is Your Level Of Caffeine Consumption? Moderate Beer Once Ayear Information not available 11/01/2018 How Much Tobacco Do You Chew? None Information not available 11/01/2018 What Type Of Diet Are You Following? REGULAR Information not available 11/01/2018 Are There Any Guns Present In Your Home? No Information not available 11/01/2018 Hard Of Hearing Or Deaf In One Or Both Ears? No Information not available 11/01/2018 Legally Blind In One Or Both Eyes? No Information not available 11/01/2018 Marital Status Informatio n not available 11/01/2018 What Was The Date Of Your Most Recent Tobacco Screening? 05/21/2020 Information not available 05/21/2020 Seat Belts Used Routinely Yes Information not available 11/01/2018 At What Age Did You Start Smoking Tobacco? 19 Information not available 09/12/2014 How Much Tobacco Do You Smoke? 1 PPD Information not available 09/12/2014 Has Tobacco Cessation Counseling Been Provided? Yes Information not available 04/07/2019 On What Date Was Tobacco Cessation Counseling Provided? 05/21/2020 Information not available 05/21/2020 How Many Years Have You Smoked Tobacco? 49 Information not available 11/01/2018 Sex: Unknown Functional Status Question Answer Note LastModified by Organizat ion Details LastModified Time What is your level of alcohol consumption? None Information not available 11/01/2018 Do you or have you ever used smokeless tobacco? Never used smokeless tobacco Information not available 11/06/2019 Do you or have you ever used e-cigarettes or vape? Never used electronic cigarettes Information not available 11/06/2019 What is your exercise level? None Information not available 11/01/2018 Mental Status None recorded. Family History Relationship Description Onset Age of this Age Resolved Age Notes LastModified by Organization Details LastModified Time Father Harmful pattern of use of alcohol cgrandberry Not available 08/27 15:01:28 Father Coronary arterioscler osis cgrandberry Not available 08/27 15:01:28 Father Heart disease cgrandberry Not available 08/27 15:01:28 Father Essential hypertension cgrandberry Not available 1 11/13/2013 15:01:28 Father Hyperlipidem ia cgrandberry Not available 08/27 15:01:28 Medical History Condition Response Anxiety Disorder Y Muscle, Joint, or Bone Problems Y Acid Reflux (GERD) Y High Blood Pressure Y Headaches Y Depression Y High Cholesterol Y Immunizations Vaccine Type Date Status Note Provider Nam e and Address Organization Details Recorded Time Influenza, split virus, quadrivalent, preservative 8 completed Kailyn Casiano MD Attn: Accounting,[address], [place], [address], [facility] 11/01/2018 11:06:31 Tdap 8 completed Kailyn Casiano MD Attn: Accounting,[address], [place], [address], [facility] 01/20/2019 16:08:34 tetanus toxoid, unspecified formulation 0 [place] 11/08/2014 10:18:46 Past Encounters Encounter ID Performer Location Encounter Start Date Encounter Closed Date Diagnosis/Indication Diagnosis SNOMED-CT Code Diagnosis ICD10 Code Diagnosis [facility] [id number] [address] [place] [address] 09/12/2014 14:18:48 09/12/2014 15:55:44 Acute sinusitis 32712489 Augmentin 875 mg po bid. Saline spray and steam inhalation . Essential hypertension 62482437 well controlled . Continue Metorpolol er 50 mg po daily. Impotence of organic origin 348252951 Screening for malignant neoplasm of prostate 123604409 Screening for malignant neoplasm of colon 137298844 Tobacco user 747821972 a dvised patient to quit smoking. [id number] [facility] [address] [place] [address] 11/08/2014 09:05:25 11/08/2014 14:18:16 Essential hypertension 92909746 Not tolerating Metorpolol er 50 mg because stomach discomfort .Discontin ued. Start Lisinopril 20 mg po daily. Advised regular exercise and low salt diet. Tobacco user 014654205 a dvised patient to quit smoking. Nicotine patch 21 mg once daily for 6 weeks. [id number] [facility] [address] [place] [address] 01/24/2015 14:34:24 02/06/2015 12:11:00 Essential hypertension 12791658 Blood pressure controlled .Continue Lisinopril . Advised regular exercise and low salt diet. Skin lesion [id number] Pat ient said he had biopsy of the skin lesion of the face in [facility] and the pathology report came as Squamous cell carcinoma and he was advised to see the Plastic surgeon. will obtain the Pathology report and refer to plastic surgeon. [id number] MD Nuzhat Deutsch (Adult Med) [address] [place] [id number] 11/01/2018 10:28:33 11/02/2018 08:39:53 General examination of patient 589063092 Z00.01 Nicotine dependence 5629 4008 F17.200 Discussed Chronic al coholism in remission 843311739 F10.21 Screening for malignant neoplasm of prostate 355822576 Z12.5 Major depr essive disorder 088419537 F32.9 Hallux leonel nikos AND bunion 697885852 M20.11 M20.12 Chronic neck pain 949483 8473 107 M54.2 Benign ess ential hypertension 4170890 I10 AddendumRp h called about his Metoprolol , it is 75 mg po BID Hypercholesterolemia 136 21999 E78.00 Abdominal pain 78051519 R10.9 [id number] [facility] [address] [place] [id number] 01/20/2019 15:43:29 01/23/2019 09:29:29 Stenosis of spinal canal due to intervertebral disc 716835678 M99.59 Degenerati on of cervical intervertebral disc 36087698 M50.30 Edema 158976571 R60.9 He attributes this to some of his medication s.Gabapent in? Nicotine dependence 5629 4008 F17.200 Discussed Cervical radiculopathy 58828111 M54.12 Skin lesion 28587437 L98 .9 [id number] MD Nuzhat Deutsch (Adult Med) [address] [place] [id number] 04/07/2019 12:26:48 04/07/2019 16:27:31 Chronic neck pain 2587260641 107 M54.2 Hypercholesterolemia 136 64901 E78.00 Chronic al coholism in remission 793025199 F10.21 [id number] MD Nuzhat Deutsch (Adult Med) [address] [place] [id number] 11/06/2019 12:30:41 11/06/2019 13:19:47 Skin lesion 61317400 L98.9 Cellulitis ?KeflexBio psy +/- imaging if there is no improvemen t Nicotine dependence 5629 4008 Z87.891 Discussed Screening for malignant neoplasm of prostate 825228854 Z12.5 Essential hypertension 80691207 I10 Hypercholesterolemia 136 24165 E78.00 Long-term drug therapy 543548237 Z79.899 HIV screening 873192561 Z11.4 [id number] MD Nuzhat Deutsch (Adult Med) [address] [place] [phone] 12/12/2019 15:09:23 12/12/2019 15:48:23 Impaired fasting glycemia 171436711 R73.01 Discussed, he apparently had a need to have his blood sugar checked during a previous hospitaliz ation Thrombocyt openic disorder 026635572 D69.6 Recheck Hyperlipidemia 75928177 E78.5 Abdominal pain 98794541 R10.9 He has had severe LLQ abdominal pain for the last 2 weeks, he however has no nausea or vomiting and he has been having normal bowel movements. I have explained to Mr Shirley that the prescribin g him a narcotic is not the answer, however, arriving at a diagnosis and making sure he does not have a loop of bowel or mesentery caught in an adhesion is what needs to be done. He has refused Ketorolac IM in the office and a prescripti on for PO as an outpatient . He is also on Buprenorph ine and apparently his Psychiatri st, Dr Dunn said it was okay for him to get a short course of a narcotic, I cannot justify this. Eruption 404287208 R21 Psoriasis vs contact dermatitis Melanocytic nevus 969400 001 D22.9 Buprenorph ine dependence 312705500 F11.20 [id number] MD Nuzhat Deutsch (Adult Med) [address] [place] [id number] 05/21/2020 13:02:15 05/22/2020 23:00:05 Essential hypertension 56052360 I10 RN BP check Impaired f asting glycemia 545657693 R73.01 Discussed. Health Concerns Section Related Observation LastModified by Organization Detai garfield LastModified Time None Recorded Concern Status LastModified by Organization Details LastModified Time None Recorded Advance Directives Directive None Recorded Payers Insurance Date Sequence Insurance Name Policy Number Policy Donohue Covered Member ID Donohue Member ID Guarantor Name 05/23/2020 2 [employer] (HMO) [id number] Von Shirley [id number] Von Shirley 11/06/2019 2 [place] Von Shirley [id number] Von Shirley 05/23/2020 1 [employer] - [place] (MEDICARE REPLACEMENT/AD VANTAGE - HMO) [id number] Von Shirley [id number] Von Shirley 08/22/2019 1 [facility] - DOS PRIOR TO 2021 (MEDICAID REPLACEMENT - HMO) Vno Shirley [id number] Von Shirley Notes Date Note Type Note Provider Name and Address Organization Details Recorded Time 01/20/2019 text/html [facility] and I am going to need the latest and greatest informationWhen I take my ADD medicine, my feet swell upThey never worked Mr Casper caal, he apparently applied for disability and he needs a statement confirming his disabilities. He states that he is unable to work because of his RLE weakness post surgery, the swelling of his feet swell, his painful toes, his chronic abdominal pain and neck and back pain. His mental health is also another issue. He has a chronic lesion on his right palm, he apparently has tried several topical agents in the past with no relief, an antifungal medication may have helped when he was admitted although he is uncertain. He complains of neck pain with bilateral UE numbness and recently he has noticed.lower extremity edema after he has been very active and on his feet. He attributes the edema to taking his ADHD medications. Kailyn Casiano MD Attn: Accounting,[address], [place], [address], [facility] [place] [place] 01/20/2019 17:37:00 04/07/2019 text/html Check up Mr Casper caal, he is yet to get his labs or the MRI done. Kailyn Casiano MD Attn: Accounting,[address], [place], [address], [facility] [place] [place] 04/07/2019 13:24:46 11/06/2019 text/html Rash/Skin LesionReported bypatient.Location:n wu Quality:painful;weep ing;single Severity:moderate Duration:has noted for <1 week Onset/Timing:abrupt onset Context:no new detergents or skin products; no one else with similar rash; not scratching Alleviating Factors:antibiotics Aggravating Factors:nothing makes it worse Associated Symptoms:no fever; no cold symptoms; no nausea; no vomiting; no diarrhea; no urinary symptoms; no chills; no fatigue; no change in weight Treatment History:oral antibiotic with improvement it's a Spider bite thing Mr Shirley noticed a painful lesion on the left side of his neck Kailyn Casiano MD Attn: Accounting[address] [place], [address], [facility] [place] [place] 11/06/2019 13:38:08 12/12/2019 text/html Abdominal PainReported bypatient.Location:[facility] Quality:pain Severity:severe Duration:intermitten t Onset/Timing:worse Modifying Factors:nothing gives relief; movement Associated Symptoms:no fever; no chills; no blood in the urine; no heartburn; no shortness of breath My herniasThey are popping out He presents with a 2 week history of LLQ abdominal pain and a history of multiple abdominal surgeries. Kailyn Casiano MD Attn: Accounting,[address] [place], [address], [facility] [place] [place] 12/12/2019 17:03:53 05/21/2020 text/html Hypertension F/UReported bypatient.Associated Symptoms:no dizziness; no lightheadedness; no chest pain; no shortness of breath; no palpitations; no edema; no calf pain with exertion Lifestyle:regular exercise; limiting/avoiding salt Medications:taking medications as directed; no side effects from medication; checks blood pressure at home, range: (A little high) Phone visit due to the Covid 19 pandemic No, nothing ,bernadetteI got a new doctor, a new psychiatristBlood pressure has been high Mr Shirley is doing well and under the care of a new psychiatrist, attempts are being made to regulate his medications. He states that his blood pressure was noted to be a little high at the most recent visit with his psychiatrist. Kailyn Casiano MD Attn: Accounting,[address], [place], [address], [facility] 05/21/2020 13:33:21
[2025-04-03] MEDS: SODIUM CHLORIDE 0.9% IV 1,000 ML 999 ML IV CONT ×2 (10:30→13:21)
[2025-04-03 10:32] LABS: Hematocrit 39.6 % (42.0-52.0); Hemoglobin 13.2 g/dL (14.0-18.0); Immature Granulocyte Percent A 0.9 % (0-0.5); Immature Platelet Fraction Pct 4.2 % (0.9-11.2); Lymphocytes Absolute Auto 0.78 K/mm3 (0.9-3.2); Mean Corpuscular HGB Conc 33.3 g/dl (32-36); Mean Corpuscular Hemoglobin 29.0 pg (26-34); Mean Corpuscular Volume 87.0 fl (80-100); Nucleated Red Blood Cells Absolute Auto 0.000 K/mm3 (0.0-0.012); Nucleated Red Blood Cells Perc 0.0 % (0.0-0.2); Platelet Count Result 118 k/mm3 (150-375); Red Blood Count 4.55 M/mm3 (4.6-6.20); White Blood Count 5.4 K/mm3 (4.5-10.0)
[2025-04-03 10:41] LABS: Add Urine Microscopic? YES; Appearance Urine Clear (Clear); Glucose Urine UA Negative (Negative); Leukocyte Esterase Ur Negative LEU/UL (Negative); Need Manual Microscopic Reviewed; Nitrate Urine Negative (Negative); Non Pathogenic Casts 0-2; Specific Grav Ur 1.022 (1.001-1.035); Spermatozoa Urine Present
[2025-04-03 10:42] LABS: Alanine Aminotransferase 17 U/L (6-50); Albumin Level 4.2 g/dL (3.5-5.1); Alkaline Phosphatase 89 U/L (38-126); Anion Gap 14 mmol/L (4-12); Aspartate Amino Transferase 25 U/L (17-59); Bilirubin,Total 1.0 mg/dL (0.2-1.3); Blood Urea Nitrogen 17 mg/dL (9-20); Calcium 9.1 mg/dL (8.4-10.2); Carbon Dioxide 21 mmol/L (22-30); Chloride 107 mmol/L (98-107); Estimated CRCL calculation 100 ml/min; Estimated Glomerular Filt Rate > 60; Glucose 146 mg/dL (65-110); Potassium 3.7 mmol/L (3.4-5.0); Sodium 142 mmol/L (137-145); Total Protein 8.1 g/dL (6.3-8.2)
[2025-04-03 10:48] LABS: INR 1.2; Prothrombin Time 14.8 Seconds (11.1-14.7)
[2025-04-03 10:49] LABS: Partial Thromboplastin Time 37.4 Seconds (22.3-36.8)
[2025-04-03 10:50] LABS: Cannabinoid Screen Urine Negative (Negative)
[2025-04-03 11:23] LABS: Creatine Kinase 74 U/L (55-170)
--- NOTE | 2025-04-03 11:30 | PC.NURSE ---
ESTEPHANIE Avalos at bedside assessing pt.
--- NOTE | 2025-04-03 11:43 | PC.NURSE ---
This RN alerted by ESTEPHANIE Avalos that pt. could possible be in alcohol withdrawal. CIWA 19. ESTEPHANIE Avalos notified of high score. Seizure pads applied to bed. Suction set up at bedside.
--- NOTE | 2025-04-03 11:52 | ED.AMS ---
HPI - Altered Mental Status General Chief Complaint: Altered Mental Status <HAYLEY Birmingham Last Filed: 04/03/25 15:47> Stated Complaint: ams <HAYLEY Birmingham Last Filed: 04/03/25 15:47> Time Seen by Provider: 04/03/25 10:14 <HAYLEY Birmingham Last Filed: 04/03/25 15:47> Source: EMS <HAYLEY Birmingham Last Filed: 04/03/25 15:47> Mode of arrival: EMS <HAYLEY Birmingham Last Filed: 04/03/25 15:47> Limitations: altered mental status <HAYLEY Birmingham Last Filed: 04/03/25 15:47> History of Present Illness HPI narrative: This is a 64-year-old male that presents to the emergency department for altered mental status. Reportedly a maintenance manager found him on the floor at his home. Family members did come to the ER and report he has been getting more confused over the last couple of days. Last known normal was Wednesday. Patient agitated, speaking nonsensical. Unable to obtain any further history <HAYLEY Birmingham Last Filed: 04/03/25 15:47> Related Data Home Medications: Home Medications ?Medication ?Instructions ?Recorded ?Confirmed ?Last Taken ?Type buprenorphine HCl 8 mg sublingual 8 mg sublingual BID 11/16/24 04/03/25 Unknown History tablet methylphenidate HCl 20 mg tablet 20 mg PO BID 11/16/24 04/03/25 Unknown History triamcinolone acetonide 0.1 % 1 applic topical BID 04/03/25 04/03/25 Unknown History topical cream <HAYLEY Birmingham Last Filed: 04/03/25 15:47> Allergies/Adverse Reactions: Allergies Allergy/AdvReac Type Severity Reaction Status Date / Time No Known Allergies Allergy Verified 03/07/25 11:26 <HAYLEY Birmingham Last Filed: 04/03/25 15:47> Review of Systems Review of Systems: ROS unobtainable: Yes unobtainable due to mental status <Annette Avalos PA-C - Last Filed: 04/03/25 15:47> [facility] Past Medical History Medical History: Medical History History of opioid abuse has abstained for the past 5 years as of 2024 History of alcohol abuse has abstained for the past 5 years as of 2024 Occult blood in stools COPD (chronic obstructive pulmonary disease) ADD (attention deficit disorder) Benign essential hypertension Hyperlipidemia Depression GERD (gastroesophageal reflux disease) Skin cancer Arthritis Anxiety <HAYLEY Birmingham Last Filed: 04/03/25 15:47> Surgical History Surgical History: Surgical History History of cervical spinal surgery <nAnette Avalos PA-C - Last Filed: 04/03/25 15:47> Family History Family History: Family History Father , Age 59 VT Heart disease Grandparent , Age 96 of Natural Causes No problems noted. Grandparent , Age 87 Lung Cancer Lung cancer Grandparent , Age 85 Natural Causes No problems noted. Grandparent , Age 83 Leukemia Leukemia <HAYLEY Birmingham Last Filed: 04/03/25 15:47> Social History Social History: Social History Smoking packs per day: 0.5 Smoking cigarettes per day: 10.0 Years smoked: 20 Smoking pack-years: 10.00 Smoking status: Current every day smoker Tobacco type: cigarettes Alcohol intake: former Substance use: never Substance use type: opiates Lack of Transportation: No Lack of Food: Never True Current Housing: I Have Housing Concerned About Future Housing: No Difficulty Paying Gas/Electric Bills: No Difficulty Paying for Meds: No Currently Unemployed: No Education: Bachelor's Degree Difficulty w/ Childcare or Family Care: No Living arrangements: alone Spiritual care concerns: No <HAYLEY Birmingham Last Filed: 04/03/25 15:47> Exam Narrative: GENERAL: Agitated, well-nourished, and in no acute distress. HEAD: Normocephalic, atraumatic. EYES: PERRLA and EOMI. ENT: Nares clear, no rhinorrhea or epistaxis. Mucous membranes moist. Oropharynx without tonsillar hypertrophy exudate or other lesions. Bilateral TMs pearly [place] non-bulging NECK: Supple. No adenopathy or masses. CHEST: No respiratory distress. No wheezes rales or rhonchi HEART: Regular rate and rhythm. No murmur heard. Normal peripheral pulses. ABDOMEN: Soft, nontender, nondistended, normal active bowel sounds. EXTREMITIES: Normal range of motion. No edema. SKIN: Warm, dry, no rash. NEURO: No focal deficits. Alert and oriented x1. Speaking nonsensical PSYCH: Agitated, delirious <Annette Avalos PA-C - Last Filed: 04/03/25 15:47> Course Course Emergency Course: family updated on his workup and need for admission <Annette Avalos PA-C - Last Filed: 04/03/25 15:47> RADIATION SAFETY OFFICER/PA Physician Supervision For this patient encounter, I reviewed the RADIATION SAFETY OFFICER or PA documentation, treatment plan, and medical decision making; and I had [id number] time with this patient. <Nick Novak MD - Last Filed: 04/03/25 21:35> Consultations Consultation #1: Spoke with hospitalist about patient and workup who accepts admission <Annette Avalos PA-C - Last Filed: 04/03/25 15:47> Date: 04/03/25 <Annette Avalos PA-C - Last Filed: 04/03/25 15:47> Consultation #2: Spoke with neurology who will consult <Annette Avalos PA-C - Last Filed: 04/03/25 15:47> Date: 04/03/25 <HAYLEY Birmingham Last Filed: 04/03/25 15:47> Vital Signs Vital signs: Vital Signs Temperature 97.5 F L 04/03/25 09:56 Pulse Rate 119 H 04/03/25 09:56 Respiratory Rate 36 H 04/03/25 09:56 Pulse Oximetry 100 04/03/25 09:56 Oxygen Delivery Room Air 04/03/25 09:56 Temperature 98.7 F 04/03/25 19:48 Pulse Rate 114 H 04/03/25 19:48 Respiratory Rate 22 H 04/03/25 19:48 Blood Pressure 155/79 H 04/03/25 19:48 Pulse Oximetry 98 04/03/25 19:48 Oxygen Delivery Room Air 04/03/25 15:40 Oxygen Flow Rate 2 04/03/25 13:02 <Annette Avalos PA-C - Last Filed: 04/03/25 15:47> Vital Signs Temperature 97.5 F L 04/03/25 09:56 Pulse Rate 119 H 04/03/25 09:56 Respiratory Rate 36 H 04/03/25 09:56 Pulse Oximetry 100 04/03/25 09:56 Oxygen Delivery Room Air 04/03/25 09:56 Temperature 98.7 F 04/03/25 19:48 Pulse Rate 114 H 04/03/25 19:48 Respiratory Rate 22 H 04/03/25 19:48 Blood Pressure 155/79 H 04/03/25 19:48 Pulse Oximetry 98 04/03/25 19:48 Oxygen Delivery Room Air 04/03/25 15:40 Oxygen Flow Rate 2 04/03/25 13:02 <Nick Novak MD - Last Filed: 04/03/25 21:35> MDM - Altered Mental Status MDM Narrative Medical decision making narrative: Patient presents the emergency department for altered mental status. Reportedly patient had been found very confused, on the floor of his home by a maintenance manager. His family members did come to the ER, report he has been getting increasingly confused over the last couple of days. His last known normal was Wednesday. Patient tachycardic, hypertensive upon arrival. He was hydrated with IV fluids, given multiple doses of Ativan. Vital signs have improved. He has become more alert and is answering more questions appropriately. Oxygen saturation did drop, likely due to doses of Ativan. Placed on 2 L nasal cannula. CBC without leukocytosis. Shows normocytic anemia hemoglobin of 13.2. Metabolic panel with some evidence of dehydration. Urine without evidence of infection. Drug screen is negative. Alcohol level is not elevated. Initially was thought to be in alcohol withdrawal, although family members report he has not drink in several years. CT brain without acute findings. Chest x-ray showing diffuse bilateral airspace disease. Blood cultures obtained, patient started on IV antibiotics. It does appear patient was recently started on Bupropion, he takes Duloxetine, as well as methylphenidate. Family updated on his workup and need for admission. Spoke with hospitalist about patient and workup who accepts admission. Spoke with neurology who will consult <Annette Avalos PA-C - Last Filed: 04/03/25 15:47> Differential Diagnosis Differential diagnosis: Likely alcoholic intoxication, altered mental status, delirium, subarachnoid hemorrhage, sepsis and other (Pneumonia, alcohol withdrawal, polysubstance abuse, serotonin syndrome) <Annette Avalos PA-C - Last Filed: 04/03/25 15:47> Lab Data Attestation: I reviewed the patient's lab results. <Annette Avalos PA-C - Last Filed: 04/03/25 15:47> Result diagrams: 04/03/25 10:20 04/03/25 10:20 <Annette Avalos PA-C - Last Filed: 04/03/25 15:47> Labs: Lab Results 04/03/25 04/03/25 04/03/25 Range/Units 10:04 10:20 13:30 WBC 5.4 (4.5-10.0) K/mm3 RBC 4.55 L (4.6-6.20) M/mm3 Hgb 13.2 L (14.0-18.0) g/dL Hct 39.6 L (42.0-52.0) % MCV 87.0 (80-100) fl MCH 29.0 (26-34) pg MCHC 33.3 (32-36) g/dl RDW 15.5 H (11.5-14.5) % Plt Count 118 L (150-375) k/mm3 MPV 11.3 H (7.4-10.4) fl Immature Gran % (Auto) 0.9 H (0-0.5) % Neut % (Auto) 66.8 (45.5-73.1) % Lymph % (Auto) 14.4 L (18.3-44.2) % [place] % (Auto) 16.4 H (2.6-8.5) % Eos % (Auto) 1.3 (0-4.4) % Baso % (Auto) 0.2 (0.2-1.2) % Lymph # (Auto) 0.78 L (0.9-3.2) K/mm3 [place] # (Auto) 0.9 H (0.1-0.6) K/mm3 Eos # (Auto) 0.1 (0-0.3) K/mm3 Baso # (Auto) 0.0 (0.0-0.1) K/mm3 Abs Immat Gran (auto) 0.05 H (0.00-0.031) K/mm3 Absolute Neuts (auto) 3.6 (1.3-6.7) K/mm3 Absolute Nucleated RBC 0.000 (0.0-0.012) K/mm3 Nucleated RBC % 0.0 (0.0-0.2) % % Immature Plt Fraction 4.2 (0.9-11.2) % PT 14.8 H (11.1-14.7) Seconds INR 1.2 APTT 37.4 H (22.3-36.8) Seconds Sodium 142 (137-145) mmol/L Potassium 3.7 (3.4-5.0) mmol/L Chloride 107 (98-107) mmol/L Carbon Dioxide 21 L (22-30) mmol/L Anion Gap 14 H (4-12) mmol/L BUN 17 (9-20) mg/dL Creatinine 0.80 (0.7-1.3) mg/dL Estim Creat Clear Calc 100 ml/min Estimated GFR > 60 (59 - ) Glucose 146 H (65-110) mg/dL POC Capillary Glucose 109 H 124 H (65-105) mg/dl Lactic Acid (0.7-2.0) mmol/L Calcium 9.1 (8.4-10.2) mg/dL Total Bilirubin 1.0 (0.2-1.3) mg/dL AST 25 (17-59) U/L ALT 17 (6-50) U/L Alkaline Phosphatase 89 (38-126) U/L Total Creatine Kinase 74 (55-170) U/L Total Protein 8.1 (6.3-8.2) g/dL Albumin 4.2 (3.5-5.1) g/dL Urine Color Yellow (Yellow) Urine Appearance Clear (Clear) Urine pH 6.0 (5.0-9.0) Ur Specific [place] 1.022 (1.001-1.035) Urine Protein 2+ H (Negative) mg/dL Urine Glucose (UA) Negative (Negative) mg/dL Urine Ketones 2+ H (Negative) mg/dL Ur Blood (Man) Negative (Negative) Urine Nitrate Negative (Negative) Urine Bilirubin Negative (Negative) Urine Urobilinogen 1.0 (<2.0) mg/dL Add Ur Microanalysis Reviewed Leukocyte Esterase Rfl Negative (Negative) QUINTON/UL Urine RBC 0-2 (0-2) /hpf Urine WBC 0-5 (0-3) /hpf Ur Squamous Epith Cells None seen (Few) /hpf Urine Bacteria None seen /hpf Urine Casts 0-2 Nasal MRSA (PCR) (NOT DETECTE) Sperm Presence Present Urine Opiates Screen Negative (Negative) Urine Methadone Screen Negative (Negative) Ur Barbiturates Screen Negative (Negative) Ur Phencyclidine Scrn Negative (Negative) Ur Amphetamine Screen Negative (Negative) U Benzodiazepines Scrn Negative (Negative) Urine Cocaine Screen Negative (Negative) U Cannabinoids Screen Negative (Negative) Ethyl Alcohol < 10 (<10) mg/dL Influenza A (RT-PCR) (Negative) Influenza B (RT-PCR) (Negative) RSV (RT-PCR) (Negative) SARS-CoV-2 RNA (RT-PCR) (Negative) 04/03/25 Range/Units 13:52 WBC (4.5-10.0) K/mm3 RBC (4.6-6.20) M/mm3 Hgb (14.0-18.0) g/dL Hct (42.0-52.0) % MCV (80-100) fl MCH (26-34) pg MCHC (32-36) g/dl RDW (11.5-14.5) % Plt Count (150-375) k/mm3 MPV (7.4-10.4) fl Immature Gran % (Auto) (0-0.5) % Neut % (Auto) (45.5-73.1) % Lymph % (Auto) (18.3-44.2) % [place] % (Auto) (2.6-8.5) % Eos % (Auto) (0-4.4) % Baso % (Auto) (0.2-1.2) % Lymph # (Auto) (0.9-3.2) K/mm3 [place] # (Auto) (0.1-0.6) K/mm3 Eos # (Auto) (0-0.3) K/mm3 Baso # (Auto) (0.0-0.1) K/mm3 Abs Immat Gran (auto) (0.00-0.031) K/mm3 Absolute Neuts (auto) (1.3-6.7) K/mm3 Absolute Nucleated RBC (0.0-0.012) K/mm3 Nucleated RBC % (0.0-0.2) % % Immature Plt Fraction (0.9-11.2) % PT (11.1-14.7) Seconds INR APTT (22.3-36.8) Seconds Sodium (137-145) mmol/L Potassium (3.4-5.0) mmol/L Chloride (98-107) mmol/L Carbon Dioxide (22-30) mmol/L Anion Gap (4-12) mmol/L BUN (9-20) mg/dL Creatinine (0.7-1.3) mg/dL Estim Creat Clear Calc ml/min Estimated GFR (59 - ) Glucose (65-110) mg/dL POC Capillary Glucose (65-105) mg/dl Lactic Acid 0.8 (0.7-2.0) mmol/L Calcium (8.4-10.2) mg/dL Total Bilirubin (0.2-1.3) mg/dL AST (17-59) U/L ALT (6-50) U/L Alkaline Phosphatase (38-126) U/L Total Creatine Kinase (55-170) U/L Total Protein (6.3-8.2) g/dL Albumin (3.5-5.1) g/dL Urine Color (Yellow) Urine Appearance (Clear) Urine pH (5.0-9.0) Ur Specific [place] (1.001-1.035) Urine Protein (Negative) mg/dL Urine Glucose (UA) (Negative) mg/dL Urine Ketones (Negative) mg/dL Ur Blood (Man) (Negative) Urine Nitrate (Negative) Urine Bilirubin (Negative) Urine Urobilinogen (<2.0) mg/dL Add Ur Microanalysis Leukocyte Esterase Rfl (Negative) QUINTON/UL Urine RBC (0-2) /hpf Urine WBC (0-3) /hpf Ur Squamous Epith Cells (Few) /hpf Urine Bacteria /hpf Urine Casts Nasal MRSA (PCR) Detected A* (NOT DETECTE) Sperm Presence Urine Opiates Screen (Negative) Urine Methadone Screen (Negative) Ur Barbiturates Screen (Negative) Ur Phencyclidine Scrn (Negative) Ur Amphetamine Screen (Negative) U Benzodiazepines Scrn (Negative) Urine Cocaine Screen (Negative) U Cannabinoids Screen (Negative) Ethyl Alcohol (<10) mg/dL Influenza A (RT-PCR) Negative (Negative) Influenza B (RT-PCR) Negative (Negative) RSV (RT-PCR) Negative (Negative) SARS-CoV-2 RNA (RT-PCR) Negative (Negative) <Annette Avalos PA-C - Last Filed: 04/03/25 15:47> Lab Results 04/03/25 04/03/25 04/03/25 Range/Units 10:04 10:20 13:30 WBC 5.4 (4.5-10.0) K/mm3 RBC 4.55 L (4.6-6.20) M/mm3 Hgb 13.2 L (14.0-18.0) g/dL Hct 39.6 L (42.0-52.0) % MCV 87.0 (80-100) fl MCH 29.0 (26-34) pg MCHC 33.3 (32-36) g/dl RDW 15.5 H (11.5-14.5) % Plt Count 118 L (150-375) k/mm3 MPV 11.3 H (7.4-10.4) fl Immature Gran % (Auto) 0.9 H (0-0.5) % Neut % (Auto) 66.8 (45.5-73.1) % Lymph % (Auto) 14.4 L (18.3-44.2) % [place] % (Auto) 16.4 H (2.6-8.5) % Eos % (Auto) 1.3 (0-4.4) % Baso % (Auto) 0.2 (0.2-1.2) % Lymph # (Auto) 0.78 L (0.9-3.2) K/mm3 [place] # (Auto) 0.9 H (0.1-0.6) K/mm3 Eos # (Auto) 0.1 (0-0.3) K/mm3 Baso # (Auto) 0.0 (0.0-0.1) K/mm3 Abs Immat Gran (auto) 0.05 H (0.00-0.031) K/mm3 Absolute Neuts (auto) 3.6 (1.3-6.7) K/mm3 Absolute Nucleated RBC 0.000 (0.0-0.012) K/mm3 Nucleated RBC % 0.0 (0.0-0.2) % % Immature Plt Fraction 4.2 (0.9-11.2) % PT 14.8 H (11.1-14.7) Seconds INR 1.2 APTT 37.4 H (22.3-36.8) Seconds Sodium 142 (137-145) mmol/L Potassium 3.7 (3.4-5.0) mmol/L Chloride 107 (98-107) mmol/L Carbon Dioxide 21 L (22-30) mmol/L Anion Gap 14 H (4-12) mmol/L BUN 17 (9-20) mg/dL Creatinine 0.80 (0.7-1.3) mg/dL Estim Creat Clear Calc 100 ml/min Estimated GFR > 60 (59 - ) Glucose 146 H (65-110) mg/dL POC Capillary Glucose 109 H 124 H (65-105) mg/dl Lactic Acid (0.7-2.0) mmol/L Calcium 9.1 (8.4-10.2) mg/dL Total Bilirubin 1.0 (0.2-1.3) mg/dL AST 25 (17-59) U/L ALT 17 (6-50) U/L Alkaline Phosphatase 89 (38-126) U/L Total Creatine Kinase 74 (55-170) U/L Total Protein 8.1 (6.3-8.2) g/dL Albumin 4.2 (3.5-5.1) g/dL Urine Color Yellow (Yellow) Urine Appearance Clear (Clear) Urine pH 6.0 (5.0-9.0) Ur Specific [place] 1.022 (1.001-1.035) Urine Protein 2+ H (Negative) mg/dL Urine Glucose (UA) Negative (Negative) mg/dL Urine Ketones 2+ H (Negative) mg/dL Ur Blood (Man) Negative (Negative) Urine Nitrate Negative (Negative) Urine Bilirubin Negative (Negative) Urine Urobilinogen 1.0 (<2.0) mg/dL Add Ur Microanalysis Reviewed Leukocyte Esterase Rfl Negative (Negative) QUINTON/UL Urine RBC 0-2 (0-2) /hpf Urine WBC 0-5 (0-3) /hpf Ur Squamous Epith Cells None seen (Few) /hpf Urine Bacteria None seen /hpf Urine Casts 0-2 Nasal MRSA (PCR) (NOT DETECTE) Sperm Presence Present Urine Opiates Screen Negative (Negative) Urine Methadone Screen Negative (Negative) Ur Barbiturates Screen Negative (Negative) Ur Phencyclidine Scrn Negative (Negative) Ur Amphetamine Screen Negative (Negative) U Benzodiazepines Scrn Negative (Negative) Urine Cocaine Screen Negative (Negative) U Cannabinoids Screen Negative (Negative) Ethyl Alcohol < 10 (<10) mg/dL Influenza A (RT-PCR) (Negative) Influenza B (RT-PCR) (Negative) RSV (RT-PCR) (Negative) SARS-CoV-2 RNA (RT-PCR) (Negative) 04/03/25 Range/Units 13:52 WBC (4.5-10.0) K/mm3 RBC (4.6-6.20) M/mm3 Hgb (14.0-18.0) g/dL Hct (42.0-52.0) % MCV (80-100) fl MCH (26-34) pg MCHC (32-36) g/dl RDW (11.5-14.5) % Plt Count (150-375) k/mm3 MPV (7.4-10.4) fl Immature Gran % (Auto) (0-0.5) % Neut % (Auto) (45.5-73.1) % Lymph % (Auto) (18.3-44.2) % [place] % (Auto) (2.6-8.5) % Eos % (Auto) (0-4.4) % Baso % (Auto) (0.2-1.2) % Lymph # (Auto) (0.9-3.2) K/mm3 [place] # (Auto) (0.1-0.6) K/mm3 Eos # (Auto) (0-0.3) K/mm3 Baso # (Auto) (0.0-0.1) K/mm3 Abs Immat Gran (auto) (0.00-0.031) K/mm3 Absolute Neuts (auto) (1.3-6.7) K/mm3 Absolute Nucleated RBC (0.0-0.012) K/mm3 Nucleated RBC % (0.0-0.2) % % Immature Plt Fraction (0.9-11.2) % PT (11.1-14.7) Seconds INR APTT (22.3-36.8) Seconds Sodium (137-145) mmol/L Potassium (3.4-5.0) mmol/L Chloride (98-107) mmol/L Carbon Dioxide (22-30) mmol/L Anion Gap (4-12) mmol/L BUN (9-20) mg/dL Creatinine (0.7-1.3) mg/dL Estim Creat Clear Calc ml/min Estimated GFR (59 - ) Glucose (65-110) mg/dL POC Capillary Glucose (65-105) mg/dl Lactic Acid 0.8 (0.7-2.0) mmol/L Calcium (8.4-10.2) mg/dL Total Bilirubin (0.2-1.3) mg/dL AST (17-59) U/L ALT (6-50) U/L Alkaline Phosphatase (38-126) U/L Total Creatine Kinase (55-170) U/L Total Protein (6.3-8.2) g/dL Albumin (3.5-5.1) g/dL Urine Color (Yellow) Urine Appearance (Clear) Urine pH (5.0-9.0) Ur Specific [place] (1.001-1.035) Urine Protein (Negative) mg/dL Urine Glucose (UA) (Negative) mg/dL Urine Ketones (Negative) mg/dL Ur Blood (Man) (Negative) Urine Nitrate (Negative) Urine Bilirubin (Negative) Urine Urobilinogen (<2.0) mg/dL Add Ur Microanalysis Leukocyte Esterase Rfl (Negative) QUINTON/UL Urine RBC (0-2) /hpf Urine WBC (0-3) /hpf Ur Squamous Epith Cells (Few) /hpf Urine Bacteria /hpf Urine Casts Nasal MRSA (PCR) Detected A* (NOT DETECTE) Sperm Presence Urine Opiates Screen (Negative) Urine Methadone Screen (Negative) Ur Barbiturates Screen (Negative) Ur Phencyclidine Scrn (Negative) Ur Amphetamine Screen (Negative) U Benzodiazepines Scrn (Negative) Urine Cocaine Screen (Negative) U Cannabinoids Screen (Negative) Ethyl Alcohol (<10) mg/dL Influenza A (RT-PCR) Negative (Negative) Influenza B (RT-PCR) Negative (Negative) RSV (RT-PCR) Negative (Negative) SARS-CoV-2 RNA (RT-PCR) Negative (Negative) <Nick Novak MD - Last Filed: 04/03/25 21:35> Imaging Data Radiologist's impression: ITS Impressions Head CT 04/03/25 11:05 IMPRESSION: No evidence for acute intracranial hemorrhage or calvarial fracture. Chest X-Ray 04/03/25 13:17 IMPRESSION: Diffuse bilateral airspace disease. Findings can represent diffuse pulmonary edema versus multifocal pneumonia in appropriate clinical settings. Short-term follow-up chest radiograph is recommended after appropriate clinical therapy. <Annette Avalos PA-C - Last Filed: 04/03/25 15:47> Critical Care Time Critical Care Time Critical Care Time: Yes <Annette Avalos PA-C - Last Filed: 04/03/25 15:47> Total Critical Care Time: 35 <Annette Avalos PA-C - Last Filed: 04/03/25 15:47> Discharge Plan Discharge Clinical Impression: Acute hypoxic respiratory failure, Multifocal pneumonia Altered mental status Qualifiers: Altered mental status type: unspecified Qualified Code(s): R41.82 - Altered mental status, unspecified <Annette Avalos PA-C - Last Filed: 04/03/25 15:47> Patient Disposition: Still a Patient <Annette Avalos PA-C - Last Filed: 04/03/25 15:47> Condition: Improved <Annette Avalos PA-C - Last Filed: 04/03/25 15:47>
--- NOTE | 2025-04-03 12:43 | PC.NURSE ---
Pt. Mom and son at bedside. This RN and ESTEPHANIE Avalos provided them with a bedside update and answered all current questions.
--- NOTE | 2025-04-03 14:25 | PC.NURSE ---
Pt. continuously bends arm with IV in it. Pt. educated to keep his arm straight so fluids can infuse. Pt. not following direction and immediately bends arm again.
[2025-04-03] MEDS: cefTRIAXone 1 GM in SODIUM CHLORIDE 0.9% IV 50 ML 100 ML IVPB (14:26)
--- NOTE | 2025-04-03 14:27 | PM.IMHP ---
H&P: HPI History of Present Illness Date/Time: 04/03/25 14:27 Chief Complaint: Altered Mental Status Narrative: 64 y/o M with PMH of COPD, ADD, hypertension, hyperlipidemia, anxiety, drug abuse on Suboxone, and alcohol abuse presents here with altered mental status. The patient presents here from home via EMS for further evaluation of altered mental status. Per EMS report to the ED staff, the patient was found by maintenance crew of the apartment on the ground. Staff reported to the EMS crew that the patient seemed sick yesterday. Patient arrived to the emergency department A&O x1, self only. Family (mother and son) now with the bedside to provide collateral information. They report he was last seen by them normal on Wednesday, 03/31. Mother reports that they went to a birthday democr[place] and over the course of the afternoon he reported dizziness, then when they got home he reported his LEs were weak almost causing a fall, and family had to assist him up to his apartment. Wednesday he seemed confused per mom, otherwise no new complaints just reported general malaise. Wednesday when she saw him he was up and around his apartment but looked unwell but very irritable. They are also reporting the patient has a history of drug abuse and alcohol abuse - mom reports he has been clean for around 5 years. He has been started on new medications - was on an antidepressant and he had Wellbutrin added (she estimates he has been on it for the past month). Mom now also reporting he has been having trouble swallowing and choking episodes, reported to her on Sat/Sun. Initial VS at presentation: 97.5? F, HR 36, R 119, 180/120, and 100% on RA. ED workup showed: No leukocytosis, hemoglobin 13.2, INR 1.2, creatinine 0.8 and GFR >60, glucose 146, LFTs, CK within normal limits. Lactic 0.8. UA showed 2+ protein and 2+ ketones otherwise unremarkable. UDS and ethanol negative. Head CT showed no evidence of acute intracranial hemorrhage or calvarial fracture. CXR showed diffuse bilateral airspace disease, findings could represent diffuse pulmonary edema versus multifocal pneumonia. EKG showed Sinus tachycardia, rate 116, indeterminate axis, incomplete right bundle branch block. Review of Systems Review of Systems: ROS unobtainable: Yes unobtainable due to mental status PMFSH Past Medical History Medical History History of opioid abuse has abstained for the past 5 years as of 2024 History of alcohol abuse has abstained for the past 5 years as of 2024 Occult blood in stools COPD (chronic obstructive pulmonary disease) ADD (attention deficit disorder) Benign essential hypertension Hyperlipidemia Depression GERD (gastroesophageal reflux disease) Skin cancer Arthritis Anxiety Surgical History Surgical History History of cervical spinal surgery Family History Family History Father , Age 59 [place] Heart disease Grandparent , Age 96 of Natural Causes No problems noted. Grandparent , Age 87 Lung Cancer Lung cancer Grandparent , Age 85 Natural Causes No problems noted. Grandparent , Age 83 Leukemia Leukemia Social History Social History Smoking packs per day: 0.5 Smoking cigarettes per day: 10.0 Years smoked: 20 Smoking pack-years: 10.00 Smoking status: Current every day smoker Tobacco type: cigarettes Alcohol intake: never Substance use: former Substance use type: opiates Lack of Transportation: No Lack of Food: Never True Current Housing: I Have Housing Concerned About Future Housing: No Difficulty Paying Gas/Electric Bills: No Difficulty Paying for Meds: No Currently Unemployed: No Education: Bachelor's Degree Difficulty w/ Childcare or Family Care: No Living arrangements: alone Spiritual care concerns: No Meds Home Medications and Allergies Home Medications ?Medication ?Instructions ?Recorded ?Confirmed ?Type atorvastatin 20 mg tablet 20 mg PO DAILY #90 tabs 10/30/24 03/27/25 Rx buprenorphine HCl 8 mg sublingual mg sublingual 11/16/24 03/27/25 History tablet duloxetine 60 mg capsule,delayed 60 mg PO DAILY #90 caps 11/16/24 03/27/25 Rx release methylphenidate HCl 20 mg tablet mg PO 11/16/24 03/27/25 History umeclidinium 62.5 mcg-vilanterol 1 inh inhalation DAILY #60 ea 11/16/24 03/27/25 Rx 25 mcg/actuation powdr for inhalation (Anoro Ellipta) metoprolol tartrate 50 mg tablet 50 mg PO BID #60 tabs 02/06/25 03/27/25 Rx gabapentin 300 mg capsule See Rx Instructions .Route 02/27/25 03/27/25 Rx .COMPLEX #540 caps zolpidem 10 mg tablet 10 mg PO QHS #30 tabs 03/26/25 03/27/25 Rx ondansetron HCl 4 mg tablet 4 mg PO BID PRN nausea and 03/27/25 03/27/25 Rx vomiting #20 tabs losartan 100 mg tablet 100 mg PO DAILY #90 tabs 03/28/25 Rx bupropion HCl 300 mg 24 hr tablet, 300 mg PO QAM #90 tabs 03/29/25 Rx extended release (Wellbutrin XL) Allergies Allergy/AdvReac Type Severity Reaction Status Date / Time No Known Allergies Allergy Verified 03/07/25 11:26 Vital Signs Vital Signs - 24 hr 04/03/25 09:56 04/03/25 10:26 04/03/25 10:26 Temperature 97.5 F L Pulse Rate 119 H 114 H Respiratory Rate 36 H 21 H Blood Pressure 180/120 H Pulse Oximetry 100 100 Oxygen Delivery Room Air Room Air Oxygen Flow Rate 04/03/25 11:30 04/03/25 13:00 04/03/25 13:02 Temperature Pulse Rate 116 H Respiratory Rate 25 H Blood Pressure 153/81 H Pulse Oximetry 99 90 95 Oxygen Delivery Room Air Nasal Cannula Oxygen Flow Rate 2 04/03/25 13:32 Temperature Pulse Rate 115 H Respiratory Rate 14 Blood Pressure 115/82 Pulse Oximetry 96 Oxygen Delivery Oxygen Flow Rate Exam Const: General: comfortable and no acute distress Other: , male, ill-appearing HENMT: Face/Nose/Sinus: Normal nares present Mouth: Yes moist mucous membranes Eyes: General: appearance normal, both eyes and all related structures Sclera: sclerae normal Pupils: Equal, round and reactive pupils present Other: difficult to assess for gaze palsy as the patient is having difficulty following commands Resp: Effort & Inspection: normal respiratory effort Other: crackles heard mid lung to base bilaterally, right worse than left. No wheezing. Nasal cannula place and tolerating well, plan for trial on room air. Cardio: Rate: tachycardic ( Mild) Rhythm: regular rhythm Other: S1-S2 present without murmur, rub, ectopy GI: Other: Abdomen soft, nondistended, nontender. Normoactive bowel sounds in all quadrants. Skin: General skin exam: normal color Wounds: no wounds Other: Small 4 x 4 cm rash to the dorsum of patient's left foot consistent with psoriasis. Neuro: Other: patient is awake and alert. patient talking, however nonsensical with some repetitive phrasing such as hey hey. not able to follow physical commands. Able to state name, disoriented to place/time/situation. not moving extremities but has muscle tone with passive ROM. Extrem: General: normal to inspection Psych: Other: Poor insight and judgment at present H&P: Results Labs Labs: Short CBC 04/03/25 Range/Units 10:20 WBC 5.4 (4.5-10.0) K/mm3 Hgb 13.2 L (14.0-18.0) g/dL Hct 39.6 L (42.0-52.0) % Plt Count 118 L (150-375) k/mm3 BMP 04/03/25 10:20 Sodium 142 Potassium 3.7 Chloride 107 Carbon Dioxide 21 L BUN 17 Creatinine 0.80 Glucose 146 H Calcium 9.1 Cardiac Enzymes 04/03/25 Range/Units 10:20 Total Creatine Kinase 74 (55-170) U/L Liver Function 04/03/25 Range/Units 10:20 Total Bilirubin 1.0 (0.2-1.3) mg/dL AST 25 (17-59) U/L ALT 17 (6-50) U/L Alkaline Phosphatase 89 (38-126) U/L Albumin 4.2 (3.5-5.1) g/dL Urine 04/03/25 Range/Units 10:20 Urine Color Yellow (Yellow) Urine Appearance Clear (Clear) Urine pH 6.0 (5.0-9.0) Ur Specific [place] 1.022 (1.001-1.035) Urine Protein 2+ H (Negative) mg/dL Urine Glucose (UA) Negative (Negative) mg/dL Assessment and Plan Assessment and plan (1) Altered mental status: Qualifiers: Altered mental status type: unspecified Qualified Code(s): R41.82 - Altered mental status, unspecified Code(s): R41.82 - Altered mental status, unspecified Status: Acute Assessment and Plan: Patient has had general decline over the last few days according to family. Per mother who has seen him over the last 4 days, seemed more confused yesterday and reportedly had some difficulty with swallowing and choking episodes. Patient had bilateral lower extremity weakness [address] was unremarkable. UDS and ethanol were negative. viral PCR negative. UA showed no indicators of infection. No leukocytosis. Chest x-ray and chest CT showed multifocal pneumonia. However, due to lower extremity weakness and new dysphagia, some concern for CVA remains. Will check MRI. Patient will need swallow study once less altered. High suspicion for metabolic encephalopathy secondary to acute infection. Will start broad-spectrum antibiotics for aspiration as the patient has had difficulty swallowing and choking episodes. Monitor neurological status q.2 hours. Neurology has been consulted. (2) Sepsis: Code(s): A41.9 - Sepsis, unspecified organism Status: Acute Assessment and Plan: - meets SIRS criteria: HR >90, RR >20. No hypoxia or hypoTN. - lactic acid: 0.8 - 30 mL/kg = 3L, given 2L bolus. Will give third L at 100 mL/hr x1 - suspected source: Multifocal pneumonia - started on azithromycin, ceftriaxone, and vancomycin. Upon further evaluation of HPI, some concern for choking and dysphagia. Will cover for aspiration pneumonia and exchanged to Zosyn and continue vancomycin as the patient's MRSA is positive. - blood cultures drawn on 04/03 - UA: 2+ protein, 2+ ketones - monitor hemodynamic stability (3) Multifocal pneumonia: Code(s): J18.8 - Other pneumonia, unspecified organism Status: Acute Assessment and Plan: - CXR: Diffuse bilateral airspace disease. Findings can represent diffuse pulmonary edema versus multifocal pneumonia in appropriate clinical settings. Short-term follow-up chest radiograph is recommended after appropriate clinical therapy. - Chest CT: Scattered areas of honeycombing, groundglass opacities, and airspace opacities are seen in both lungs. Right pleuroparenchymal thickening is also noted. Findings likely represent an infectious/inflammatory process. Clinical correlation is recommended. Short term follow-up chest radiograph is recommended after appropriate clinical therapy. - risk/complicating factors: AMS, possible dysphagia -> aspiration, sepsis - started on Zosyn and Vancomycin on 04/03 - MRSA PCR + on 04/03, bactroban ordered - Viral PCR negative - check sputum culture if obtainable (4) Benign essential hypertension: Code(s): I10 - Essential (primary) hypertension Status: Chronic Assessment and Plan: - chronic, currently 147/90 - altered and new dysphagia noted, will hold p.o. medications. Resume when appropriate. Hydralazine p.r.n. in interim. - monitor Plan Diet: NPO GI Prophylaxis: PPI IV DVT Prophylaxis: Lovenox SQ IV fluids: 2L bolus -> LR at 100 m/hr x1L Lines/Tubes: peripheral IV Code Status: full code Quality VTE Prophylaxis VTE prophylaxis: pharmacologic ordered Hospitalist [facility] Advance Care Plan I have confirmed that the patient's Advanced Care Plan is present, code status is documented, or surrogate decision maker is listed in patient medical record.: Yes Medication Reconciliation I have utilized all available resources to obtain, update and review the patients current medications (includes all prescriptions, OTC, herbals, cannabis, and nutritional supplements).: Yes
--- NOTE | 2025-04-03 14:28 | PC.NURSE ---
Pt. Mom left bedside. She left her contact information: Jessica María [phone].
[2025-04-03] MEDS: AZITHROMYCIN IV 500 MG in SODIUM CHLORIDE 0.9% IV 250 ML IVPB (14:51)
[2025-04-03 14:57] LABS: Influenza A QL RT-PCR Negative (Negative); Influenza B QL RT-PCR Negative (Negative); RSV RNA, RT-PCR Negative (Negative); SARS-CoV-2 RNA PCR Negative (Negative)
[2025-04-03 15:31] LABS: MRSA (PCR) DETECTED (NOT DETECTE)
--- NOTE | 2025-04-03 15:39 | PC.NURSE ---
Hospitalist at bedside assessing pt. Pt. Mom also at bedside.
[2025-04-03] MEDS: VANCOMYCIN 1,250 MG/NS 250 ML 1,250 MG/250 ML BAG 166.67 MG IVPB ×2 (15:56→17:24)
--- NOTE | 2025-04-03 18:45 | ADMGEN ---
This patient, Von Shirley, was admitted to IMU Room 203-01. Patient/family oriented to hospital policies and general routines including ID bracelet, bed and alarms, visiting hours, pain management, procedures, bathroom and other care routines, personal items, smoking policy, room service/diet, and visiting hours. Information on how to activate the Rapid Response Team has been discussed. Patient/Family are encouraged to report perceived risks to care and to ask questions if they do not understand what they are told or what they should do.
--- NOTE | 2025-04-03 18:46 | WNDPHOTO ---
PHOTO ONLY - See Nursing Notes and/ or assessments for documentation.
--- NOTE | 2025-04-03 18:46 | WNDPHOTO ---
PHOTO ONLY - See Nursing Notes and/ or assessments for documentation.
[2025-04-03 19:40] LABS: Alveolar/Arterial O2 Gradient 45.4 mmHg; Fractional Inspired Oxygen 21 %; HCO3 ABG 22.9 mEq/l (22.0-26.0); Oxygen Content ABG 16.1 %vol (16.0-22.0); Oxygen Saturation ABG 93.3 % (95.0-100.0); PCO2 ABG 34.1 mmHg (35.0-45.0); PO2 ABG 63.5 mmHg (80.0-100.0); PO2 FiO2 Ratio Arterial Blood 3.02 %
[2025-04-03 19:41] LABS: Modified Allen's Test Pass; Site Drawn LEFT RADIAL
[2025-04-03] MEDS: PIPERACILLIN/TAZOBACTAM SOD 4.5 GM in SODIUM CHLORIDE 0.9% IV 100 ML 200 ML IVPB (21:31)
[2025-04-03] MEDS: MUPIROCIN 2% OINT 22 GM TUBE 1 APPLIC EACH NARE (22:03)
[2025-04-03] MEDS: LACTATED RINGERS 1,000 ML 100 ML IV CONT (22:03)
[2025-04-04] VITALS (22 sets, daily range): BP systolic 158–188; BP diastolic 70–107; PULSE 86–122; RESP 20–23; TEMP 36.7–38; O2SAT 93–97
[2025-04-04] MEDS: PIPERACILLIN/TAZOBACTAM SOD 4.5 GM in SODIUM CHLORIDE 0.9% IV 100 ML 200 ML IVPB ×4 (02:13→20:21)
[2025-04-04] MEDS: VANCOMYCIN 1,500 MG/NS 500 ML 1,500 MG/500 ML BAG 250 MG IVPB ×2 (03:31→15:20)
[2025-04-04 04:58] LABS: Hematocrit 36.1 % (42.0-52.0); Hemoglobin 11.8 g/dL (14.0-18.0); Immature Granulocyte Percent A 1.2 % (0-0.5); Lymphocytes Absolute Auto 0.63 K/mm3 (0.9-3.2); Mean Corpuscular HGB Conc 32.7 g/dl (32-36); Mean Corpuscular Hemoglobin 28.9 pg (26-34); Mean Corpuscular Volume 88.5 fl (80-100); Nucleated Red Blood Cells Absolute Auto 0.000 K/mm3 (0.0-0.012); Nucleated Red Blood Cells Perc 0.0 % (0.0-0.2); Platelet Count Result 113 k/mm3 (150-375); Red Blood Count 4.08 M/mm3 (4.6-6.20); White Blood Count 4.0 K/mm3 (4.5-10.0)
[2025-04-04 05:18] LABS: Alanine Aminotransferase 14 U/L (6-50); Albumin Level 3.5 g/dL (3.5-5.1); Alkaline Phosphatase 74 U/L (38-126); Anion Gap 9 mmol/L (4-12); Aspartate Amino Transferase 24 U/L (17-59); Bilirubin,Total 0.7 mg/dL (0.2-1.3); Blood Urea Nitrogen 13 mg/dL (9-20); Calcium 8.2 mg/dL (8.4-10.2); Carbon Dioxide 22 mmol/L (22-30); Chloride 111 mmol/L (98-107); Estimated CRCL calculation 107 ml/min; Estimated Glomerular Filt Rate > 60; Glucose 115 mg/dL (65-110); Potassium 3.5 mmol/L (3.4-5.0); Sodium 142 mmol/L (137-145); Total Protein 6.9 g/dL (6.3-8.2)
--- NOTE | 2025-04-04 06:18 | PC.NURSE ---
Pt is scheduled for MRI this morning. Numerous attempts by staff have been made to remove stainless steel ring from pt's right ring finger, including the use of ring cutter. Unable to remove pt's ring at this time.
[2025-04-04] MEDS: ENOXAPARIN 40 MG/0.4 ML SYRINGE SUB-Q (08:52)
[2025-04-04] MEDS: MUPIROCIN 2% OINT 22 GM TUBE 1 APPLIC EACH NARE ×2 (09:06→20:50)
--- NOTE | 2025-04-04 09:19 | P.CONNEU_ITS ---
Assessment and Plan Assessment and plan (1) Altered mental status: Qualifiers: Altered mental status type: unspecified Qualified Code(s): R41.82 - Altered mental status, unspecified Code(s): R41.82 - Altered mental status, unspecified Status: Acute Plan 1. Change in the mental status 2. Rule out the possibility of unwitnessed seizure, 3. initial CT scan of the head is negative for the bleed MRI is warranted to rule out the possibility of the subtle stroke, 4. At this stage the treatment is seen. Consult date: 04/04/25 HPI: Von Shirley is a 64 year old male admitted to the hospital through the emergency room for the complaints of change in the mental status, a supervisor cell maintenance found him on the floor at his home. Subsequently the family came to the ER and reported that he has been getting increasingly confused over the last couple of days. In the ER he was agitated and was speaking nonsensical. His medications included methylphenidate 20mg b.i.d., buprenorphine 20mg b.i.d., reportedly not allergic to any medications, has history of opioid abuse, alcohol abuse, attention deficit disorder, depression, anxiety his smoking pack years 10, currently everyday smoker, former alcohol intake or, initial exam in the emergency room agitated and delirious oriented only x1. Vital signs with pulse rate 119 temperature 97.5? pulse ox 100, CBC with low platelet count of 1 1 8, BMP normal, mast scan normal, drug screen on the urine negative, screening for influenza a B RSV and SARs COVID negative, CT of the head negative for the bleed x-ray chest with diffuse pulmonary edema versus multifocal pneumonia, CT of the chest is scattered areas of honeycombing glass opacity representing infectious inflammatory process, has had MRI cervical spine in March of 2022 with documentation of anterior fusion C5-C6 and C6 and 7 Review of Systems 2 Review of Systems: All systems reviewed & are unremarkable except as noted in HPI and below PMFSH Past Medical History Medical History History of opioid abuse has abstained for the past 5 years as of 2024 History of alcohol abuse has abstained for the past 5 years as of 2024 Occult blood in stools COPD (chronic obstructive pulmonary disease) ADD (attention deficit disorder) Benign essential hypertension Hyperlipidemia Depression GERD (gastroesophageal reflux disease) Skin cancer Arthritis Anxiety Surgical History Surgical History History of cervical spinal surgery Family History Family History Father , Age 59 [place] Heart disease Grandparent , Age 96 of Natural Causes No problems noted. Grandparent , Age 87 Lung Cancer Lung cancer Grandparent , Age 85 Natural Causes No problems noted. Grandparent , Age 83 Leukemia Leukemia Social History Social History Smoking packs per day: 0.5 Smoking cigarettes per day: 10.0 Years smoked: 20 Smoking pack-years: 10.00 Smoking status: Current every day smoker Tobacco type: cigarettes Alcohol intake: former Substance use: never Substance use type: opiates Lack of Transportation: No Lack of Food: Never True Current Housing: I Have Housing Concerned About Future Housing: No Difficulty Paying Gas/Electric Bills: No Difficulty Paying for Meds: No Currently Unemployed: No Education: Bachelor's Degree Difficulty w/ Childcare or Family Care: No Living arrangements: alone Spiritual care concerns: No Meds Home Medications and Allergies Home Medications ?Medication ?Instructions ?Recorded ?Confirmed ?Type atorvastatin 20 mg tablet 20 mg PO DAILY #90 tabs 10/30/24 04/03/25 Rx buprenorphine HCl 8 mg sublingual 8 mg sublingual BID 11/16/24 04/03/25 History tablet duloxetine 60 mg capsule,delayed 60 mg PO DAILY #90 caps 11/16/24 04/03/25 Rx release methylphenidate HCl 20 mg tablet 20 mg PO BID 11/16/24 04/03/25 History metoprolol tartrate 50 mg tablet 50 mg PO BID #60 tabs 02/06/25 04/03/25 Rx gabapentin 300 mg capsule See Rx Instructions .Route 02/27/25 04/03/25 Rx .COMPLEX #540 caps ondansetron HCl 4 mg tablet 4 mg PO BID PRN nausea and 03/27/25 04/03/25 Rx vomiting #20 tabs losartan 100 mg tablet 100 mg PO DAILY #90 tabs 03/28/25 04/03/25 Rx bupropion HCl 300 mg 24 hr tablet, 300 mg PO QAM #90 tabs 03/29/25 04/03/25 Rx extended release (Wellbutrin XL) triamcinolone acetonide 0.1 % 1 applic topical BID 04/03/25 04/03/25 History topical cream Allergies Allergy/AdvReac Type Severity Reaction Status Date / Time No Known Allergies Allergy Verified 03/07/25 11:26 Vital Signs Vital Signs - 24 hr 04/03/25 09:56 04/03/25 10:26 04/03/25 10:26 Temperature 36.4 C L Pulse Rate 119 H 114 H Respiratory Rate 36 H 21 H Blood Pressure 180/120 H Pulse Oximetry 100 100 Oxygen Delivery Room Air Room Air Oxygen Flow Rate Fraction of Inspired Oxygen 04/03/25 11:30 04/03/25 13:00 04/03/25 13:02 Temperature Pulse Rate 116 H Respiratory Rate 25 H Blood Pressure 153/81 H Pulse Oximetry 99 90 95 Oxygen Delivery Room Air Nasal Cannula Oxygen Flow Rate 2 Fraction of Inspired Oxygen 04/03/25 13:32 04/03/25 14:29 04/03/25 14:54 Temperature Pulse Rate 115 H 109 H 101 H Respiratory Rate 14 14 14 Blood Pressure 115/82 140/90 116/83 Pulse Oximetry 96 99 100 Oxygen Delivery Oxygen Flow Rate Fraction of Inspired Oxygen 04/03/25 15:40 04/03/25 15:40 04/03/25 17:06 Temperature 36.4 C L Pulse Rate 97 103 H Respiratory Rate 14 14 Blood Pressure 144/89 H 147/90 H Pulse Oximetry 98 97 94 Oxygen Delivery Room Air Oxygen Flow Rate Fraction of Inspired Oxygen 04/03/25 19:04 04/03/25 19:48 04/03/25 20:00 Temperature 37.1 C 37.1 C Pulse Rate 121 H 114 H Respiratory Rate 22 H 22 H Blood Pressure 149/87 H 155/79 H Pulse Oximetry 94 98 Oxygen Delivery Room Air Oxygen Flow Rate Fraction of Inspired Oxygen 04/03/25 20:00 04/03/25 22:00 04/03/25 23:43 Temperature 37.1 C Pulse Rate 112 H 117 H 112 H Respiratory Rate 20 Blood Pressure 151/75 H Pulse Oximetry 96 Oxygen Delivery Oxygen Flow Rate Fraction of Inspired Oxygen 04/04/25 00:00 04/04/25 00:00 04/04/25 02:00 Temperature Pulse Rate 119 H 108 H Respiratory Rate Blood Pressure Pulse Oximetry Oxygen Delivery Room Air Oxygen Flow Rate Fraction of Inspired Oxygen 04/04/25 03:18 04/04/25 04:00 04/04/25 04:00 Temperature 38.0 C H Pulse Rate 122 H 109 H Respiratory Rate 23 H Blood Pressure 163/93 H Pulse Oximetry 93 Oxygen Delivery Room Air Oxygen Flow Rate Fraction of Inspired Oxygen 04/04/25 06:00 04/04/25 08:00 04/04/25 08:10 Temperature 37.5 C Pulse Rate 106 H 110 H Respiratory Rate 22 H Blood Pressure 188/107 H Pulse Oximetry 96 96 Oxygen Delivery Room Air Oxygen Flow Rate Fraction of Inspired Oxygen 21 Exam 2 Narrative: revealed him to be awake alert cooperative in no obvious acute distress, head normocephalic with no cranial bruit, neck supple with no meningeal signs no cervical bruit no thyromegaly no lymphadenopathy, heart regular with no murmur, lungs clear to auscultation, abdomen soft nontender with normal bowel sounds, neurologically awake alert does not follow the verbal commands appropriately neck supple with no cervical bruit or meningeal signs, pupils round regular reacting to light equally, feels the vision full to threat stimuli, extraocular movements are full with no spontaneous nystagmus, facial grimace symmetrical, tongue in the oral cavity motor examination revealed him to be able to move both upper and lower extremities with downgoing plantar responses and symmetrical deep tendon reflexes. There is no evidence of any gross cerebellar sign Results Labs 04/04/25 04:09 04/04/25 04:09 Labs: Short CBC 04/03/25 04/04/25 Range/Units 10:20 04:09 WBC 5.4 4.0 L (4.5-10.0) K/mm3 Hgb 13.2 L 11.8 L (14.0-18.0) g/dL Hct 39.6 L 36.1 L (42.0-52.0) % Plt Count 118 L 113 L (150-375) k/mm3 BMP 04/03/25 04/04/25 10:20 04:09 Sodium 142 142 Potassium 3.7 3.5 Chloride 107 111 H Carbon Dioxide 21 L 22 BUN 17 13 Creatinine 0.80 0.74 Glucose 146 H 115 H Calcium 9.1 8.2 L Cardiac Enzymes 04/03/25 Range/Units 10:20 Total Creatine Kinase 74 (55-170) U/L Liver Function 04/03/25 04/04/25 Range/Units 10:20 04:09 Total Bilirubin 1.0 0.7 (0.2-1.3) mg/dL AST 25 24 (17-59) U/L ALT 17 14 (6-50) U/L Alkaline Phosphatase 89 74 (38-126) U/L Albumin 4.2 3.5 (3.5-5.1) g/dL Urine 04/03/25 Range/Units 10:20 Urine Color Yellow (Yellow) Urine Appearance Clear (Clear) Urine pH 6.0 (5.0-9.0) Ur Specific [place] 1.022 (1.001-1.035) Urine Protein 2+ H (Negative) mg/dL Urine Glucose (UA) Negative (Negative) mg/dL
--- NOTE | 2025-04-04 09:40 | PM.IMPN ---
Progress Note: A&P Assessment and Plan (1) Altered mental status: Qualifiers: Altered mental status type: unspecified Qualified Code(s): R41.82 - Altered mental status, unspecified Code(s): R41.82 - Altered mental status, unspecified Status: Acute Plan 64 y/o M with PMH of COPD, ADD, hypertension, hyperlipidemia, anxiety, drug abuse on Suboxone, and alcohol abuse presents here with altered mental status. Altered mental status: Qualifiers: Altered mental status type: unspecified Qualified Code(s): R41.82 - Altered mental status, unspecified Code(s): R41.82 - Altered mental status, unspecified Status: Acute Assessment and Plan: confused, some difficulty with swallowing and choking episodes. Head CT was unremarkable. UDS and ethanol were negative. viral PCR negative. UA showed no indicators of infection. pending MRI. Neurology has been consulted. Sepsis: Code(s): A41.9 - Sepsis, unspecified organism Status: Acute Assessment and Plan: - meets SIRS criteria: HR >90, RR >20. - lactic acid: 0.8 - 30 mL/kg = 3L, given 2L bolus. Will give third L at 100 mL/hr x1 - suspected source: Multifocal pneumonia - started on azithromycin, ceftriaxone, and vancomycin. Upon further evaluation of HPI, some concern for choking and dysphagia. Will cover for aspiration pneumonia and exchanged to Zosyn and continue vancomycin as the patient's MRSA is positive. - blood cultures drawn on 04/03 - UA: 2+ protein, 2+ ketones - monitor hemodynamic stability Multifocal pneumonia: Code(s): J18.8 - Other pneumonia, unspecified organism Status: Acute Assessment and Plan: - CXR: Diffuse bilateral airspace disease. Findings can represent diffuse pulmonary edema versus multifocal pneumonia in appropriate clinical settings. Short-term follow-up chest radiograph is recommended after appropriate clinical therapy. - Chest CT: Scattered areas of honeycombing, groundglass opacities, and airspace opacities are seen in both lungs. Right pleuroparenchymal thickening is also noted. Findings likely represent an infectious/inflammatory process. possible aspiration, sepsis - started on Zosyn and Vancomycin on 04/03 - MRSA PCR + on 04/03, bactroban ordered - Viral PCR negative Hypertension urgency Code(s): I10 - Essential (primary) hypertension Status: Chronic Assessment and Plan: Continue losartan 100 mg daily p.o., metoprolol 50 mg b.i.d. p.o. dehydration Start normal saline IV 125 mL/hour Subjective Date/time seen: 04/04/25 09:40 Interval history: I saw examined patient today. Patient still confused, agitated. Patient was moving all extremities patient cannot provide reliable history Patient denies headache, vision change, chest pain Exam Narrative: GENERAL: ill-appearing, in no acute distress. Well-nourished. - EYES: EOMI. Anicteric. - HENT: dry mucous membranes. - LUNGS: Clear to auscultation bilaterally, no wheezing, rhonchi, or rales. - CARDIOVASCULAR: Regular rate and rhythm. No murmur. No JVD. - ABDOMEN: Soft, non-tender and non-distended. No palpable masses. - EXTREMITIES: No edema. Peripheral pulses 2+. Non-tender. - NEUROLOGIC: No focal neurological deficits. CN II-XII grossly intact. - PSYCHIATRIC: Awake, confused not oriented x 3. anxious mood and affect. - SKIN: No rashes or lesions. Warm. - LYMPH: No cervical lymphadenopathy. Objective Data Vital Signs Vital Signs: Vital Signs - 24 hr 04/03/25 09:56 04/03/25 10:26 04/03/25 10:26 Temperature 97.5 F L Pulse Rate 119 H 114 H Respiratory Rate 36 H 21 H Blood Pressure 180/120 H Pulse Oximetry 100 100 Oxygen Delivery Room Air Room Air Oxygen Flow Rate Fraction of Inspired Oxygen 04/03/25 11:30 04/03/25 13:00 04/03/25 13:02 Temperature Pulse Rate 116 H Respiratory Rate 25 H Blood Pressure 153/81 H Pulse Oximetry 99 90 95 Oxygen Delivery Room Air Nasal Cannula Oxygen Flow Rate 2 Fraction of Inspired Oxygen 04/03/25 13:32 04/03/25 14:29 04/03/25 14:54 Temperature Pulse Rate 115 H 109 H 101 H Respiratory Rate 14 14 14 Blood Pressure 115/82 140/90 116/83 Pulse Oximetry 96 99 100 Oxygen Delivery Oxygen Flow Rate Fraction of Inspired Oxygen 04/03/25 15:40 04/03/25 15:40 04/03/25 17:06 Temperature 97.5 F L Pulse Rate 97 103 H Respiratory Rate 14 14 Blood Pressure 144/89 H 147/90 H Pulse Oximetry 98 97 94 Oxygen Delivery Room Air Oxygen Flow Rate Fraction of Inspired Oxygen 04/03/25 19:04 04/03/25 19:48 04/03/25 20:00 Temperature 98.7 F 98.7 F Pulse Rate 121 H 114 H Respiratory Rate 22 H 22 H Blood Pressure 149/87 H 155/79 H Pulse Oximetry 94 98 Oxygen Delivery Room Air Oxygen Flow Rate Fraction of Inspired Oxygen 04/03/25 20:00 04/03/25 22:00 04/03/25 23:43 Temperature 98.8 F Pulse Rate 112 H 117 H 112 H Respiratory Rate 20 Blood Pressure 151/75 H Pulse Oximetry 96 Oxygen Delivery Oxygen Flow Rate Fraction of Inspired Oxygen 04/04/25 00:00 04/04/25 00:00 04/04/25 02:00 Temperature Pulse Rate 119 H 108 H Respiratory Rate Blood Pressure Pulse Oximetry Oxygen Delivery Room Air Oxygen Flow Rate Fraction of Inspired Oxygen 04/04/25 03:18 04/04/25 04:00 04/04/25 04:00 Temperature 100.4 F H Pulse Rate 122 H 109 H Respiratory Rate 23 H Blood Pressure 163/93 H Pulse Oximetry 93 Oxygen Delivery Room Air Oxygen Flow Rate Fraction of Inspired Oxygen 04/04/25 06:00 04/04/25 08:00 04/04/25 08:10 Temperature 99.5 F Pulse Rate 106 H 110 H Respiratory Rate 22 H Blood Pressure 188/107 H Pulse Oximetry 96 96 Oxygen Delivery Room Air Oxygen Flow Rate Fraction of Inspired Oxygen 21 Intake/Output Intake/Output: Intake & Output 04/01/25 04/02/25 04/03/25 04/04/25 23:59 23:59 23:59 23:59 Intake Total 1650 1085.1 Output Total 200 600 Balance 1450 485.1 Meds/Results Medications: Active Medications Generic Name Dose Route Start Last Admin Trade Name Freq PRN Reason Stop Dose Admin Acetaminophen 650 mg 04/03/25 18:24 Acetaminophen 650 Mg Suppository RECTAL Q6H PRN Mild Pain (1-3) or Fever Aspirin 81 mg 04/05/25 09:00 Aspirin 81 Mg Enteric Tablet PO QAM [facility] Enoxaparin Sodium 40 mg 04/04/25 09:00 04/04/25 08:52 Enoxaparin 40 Mg/0.4 Ml Syringe SUB-Q 40 mg DAILY [facility] Administration Hydralazine HCl 10 mg 04/03/25 18:25 Hydralazine Hcl 20 Mg/Ml Vial IV PUSH Q8H PRN Blood Pressure - >180/90 Vancomycin HCl 1,500 mg in 500 mls @ 250 mls/hr 04/04/25 03:00 04/04/25 05:31 Vancomycin 1,500 Mg/Ns 500 Ml IVPB Infused Q12H [facility] Infusion Piperacillin Sod/Tazobactam 100 mls @ 200 mls/hr 04/03/25 20:00 04/04/25 08:41 Sod 4.5 gm/ Sodium Chloride IVPB 200 mls/hr Q6H [facility] Administration Mupirocin 1 applic 04/03/25 21:00 04/04/25 09:06 Mupirocin 2% Oint 22 Gm Tube EACH NARE 04/08/25 09:01 1 applic Q12HR [facility] Administration Ondansetron HCl 4 mg 04/03/25 18:24 Ondansetron Inj 4 Mg/2 Ml Vial IV PUSH Q6H PRN Nausea And Vomiting Pantoprazole Sodium 40 mg 04/04/25 09:00 Pantoprazole 40 Mg Tablet PO QAM [facility] Radiology Results: ITS Impressions Head CT 04/03/25 11:05 IMPRESSION: No evidence for acute intracranial hemorrhage or calvarial fracture. Chest X-Ray 04/03/25 13:17 IMPRESSION: Diffuse bilateral airspace disease. Findings can represent diffuse pulmonary edema versus multifocal pneumonia in appropriate clinical settings. Short-term follow-up chest radiograph is recommended after appropriate clinical therapy. Chest CT 04/03/25 15:31 IMPRESSION: Scattered areas of honeycombing, groundglass opacities, and airspace opacities are seen in both lungs. Right pleuroparenchymal thickening is also noted. Findings likely represent an infectious/inflammatory process. Clinical correlation is recommended. Short term follow-up chest radiograph is recommended after appropriate clinical therapy. Labs Labs: Laboratory Results - last 24 hr 04/03/25 04/03/25 04/03/25 10:04 10:20 13:30 WBC 5.4 RBC 4.55 L Hgb 13.2 L Hct 39.6 L MCV 87.0 MCH 29.0 MCHC 33.3 RDW 15.5 H Plt Count 118 L MPV 11.3 H Immature Gran % (Auto) 0.9 H Neut % (Auto) 66.8 Lymph % (Auto) 14.4 L [place] % (Auto) 16.4 H Eos % (Auto) 1.3 Baso % (Auto) 0.2 Lymph # (Auto) 0.78 L [place] # (Auto) 0.9 H Eos # (Auto) 0.1 Baso # (Auto) 0.0 Abs Immat Gran (auto) 0.05 H Absolute Neuts (auto) 3.6 Absolute Nucleated RBC 0.000 Nucleated RBC % 0.0 % Immature Plt Fraction 4.2 PT 14.8 H INR 1.2 APTT 37.4 H Puncture Site ABG pH ABG pCO2 ABG pO2 ABG PO2/FiO2 Ratio ABG HCO3 ABG O2 Saturation ABG O2 Content ABG Base Excess A-a Gradient Oxyhemoglobin Total Hemoglobin O2 Delivery Device O2 Liters/Min FiO2 Sodium 142 Potassium 3.7 Chloride 107 Carbon Dioxide 21 L Anion Gap 14 H BUN 17 Creatinine 0.80 Estim Creat Clear Calc 100 Estimated GFR > 60 Glucose 146 H POC Capillary Glucose 109 H 124 H Lactic Acid Calcium 9.1 Total Bilirubin 1.0 AST 25 ALT 17 Alkaline Phosphatase 89 Total Creatine Kinase 74 Total Protein 8.1 Albumin 4.2 Urine Color Yellow Urine Appearance Clear Urine pH 6.0 Ur Specific [place] 1.022 Urine Protein 2+ H Urine Glucose (UA) Negative Urine Ketones 2+ H Ur Blood (Man) Negative Urine Nitrate Negative Urine Bilirubin Negative Urine Urobilinogen 1.0 Add Ur Microanalysis Reviewed Leukocyte Esterase Rfl Negative Urine RBC 0-2 Urine WBC 0-5 Ur Squamous Epith Cells None seen Urine Bacteria None seen Urine Casts 0-2 Nasal MRSA (PCR) Sperm Presence Present Urine Opiates Screen Negative Urine Methadone Screen Negative Ur Barbiturates Screen Negative Ur Phencyclidine Scrn Negative Ur Amphetamine Screen Negative U Benzodiazepines Scrn Negative Urine Cocaine Screen Negative U Cannabinoids Screen Negative Ethyl Alcohol < 10 Influenza A (RT-PCR) Influenza B (RT-PCR) RSV (RT-PCR) SARS-CoV-2 RNA (RT-PCR) 04/03/25 04/03/25 04/03/25 13:52 19:36 22:55 WBC RBC Hgb Hct MCV MCH MCHC RDW Plt Count MPV Immature Gran % (Auto) Neut % (Auto) Lymph % (Auto) [place] % (Auto) Eos % (Auto) Baso % (Auto) Lymph # (Auto) [place] # (Auto) Eos # (Auto) Baso # (Auto) Abs Immat Gran (auto) Absolute Neuts (auto) Absolute Nucleated RBC Nucleated RBC % % Immature Plt Fraction PT INR APTT Puncture Site Left radial ABG pH 7.444 ABG pCO2 34.1 L ABG pO2 63.5 L ABG PO2/FiO2 Ratio 3.02 ABG HCO3 22.9 ABG O2 Saturation 93.3 L ABG O2 Content 16.1 ABG Base Excess -0.7 A-a Gradient 45.4 Oxyhemoglobin 91.6 Total Hemoglobin 12.5 O2 Delivery Device Room air O2 Liters/Min Not Reportable FiO2 21 Sodium Potassium Chloride Carbon Dioxide Anion Gap BUN Creatinine Estim Creat Clear Calc Estimated GFR Glucose POC Capillary Glucose 93 Lactic Acid 0.8 Calcium Total Bilirubin AST ALT Alkaline Phosphatase Total Creatine Kinase Total Protein Albumin Urine Color Urine Appearance Urine pH Ur Specific [place] Urine Protein Urine Glucose (UA) Urine Ketones Ur Blood (Man) Urine Nitrate Urine Bilirubin Urine Urobilinogen Add Ur Microanalysis Leukocyte Esterase Rfl Urine RBC Urine WBC Ur Squamous Epith Cells Urine Bacteria Urine Casts Nasal MRSA (PCR) Detected A* Sperm Presence Urine Opiates Screen Urine Methadone Screen Ur Barbiturates Screen Ur Phencyclidine Scrn Ur Amphetamine Screen U Benzodiazepines Scrn Urine Cocaine Screen U Cannabinoids Screen Ethyl Alcohol Influenza A (RT-PCR) Negative Influenza B (RT-PCR) Negative RSV (RT-PCR) Negative SARS-CoV-2 RNA (RT-PCR) Negative 04/04/25 04:09 WBC 4.0 L RBC 4.08 L Hgb 11.8 L Hct 36.1 L MCV 88.5 MCH 28.9 MCHC 32.7 RDW 15.7 H Plt Count 113 L MPV 10.9 H Immature Gran % (Auto) 1.2 H Neut % (Auto) 63.5 Lymph % (Auto) 15.6 L [place] % (Auto) 15.8 H Eos % (Auto) 3.7 Baso % (Auto) 0.2 Lymph # (Auto) 0.63 L [place] # (Auto) 0.6 Eos # (Auto) 0.2 Baso # (Auto) 0.0 Abs Immat Gran (auto) 0.05 H Absolute Neuts (auto) 2.6 Absolute Nucleated RBC 0.000 Nucleated RBC % 0.0 % Immature Plt Fraction PT INR APTT Puncture Site ABG pH ABG pCO2 ABG pO2 ABG PO2/FiO2 Ratio ABG HCO3 ABG O2 Saturation ABG O2 Content ABG Base Excess A-a Gradient Oxyhemoglobin Total Hemoglobin O2 Delivery Device O2 Liters/Min FiO2 Sodium 142 Potassium 3.5 Chloride 111 H Carbon Dioxide 22 Anion Gap 9 BUN 13 Creatinine 0.74 Estim Creat Clear Calc 107 Estimated GFR > 60 Glucose 115 H POC Capillary Glucose Lactic Acid Calcium 8.2 L Total Bilirubin 0.7 AST 24 ALT 14 Alkaline Phosphatase 74 Total Creatine Kinase Total Protein 6.9 Albumin 3.5 Urine Color Urine Appearance Urine pH Ur Specific [place] Urine Protein Urine Glucose (UA) Urine Ketones Ur Blood (Man) Urine Nitrate Urine Bilirubin Urine Urobilinogen Add Ur Microanalysis Leukocyte Esterase Rfl Urine RBC Urine WBC Ur Squamous Epith Cells Urine Bacteria Urine Casts Nasal MRSA (PCR) Sperm Presence Urine Opiates Screen Urine Methadone Screen Ur Barbiturates Screen Ur Phencyclidine Scrn Ur Amphetamine Screen U Benzodiazepines Scrn Urine Cocaine Screen U Cannabinoids Screen Ethyl Alcohol Influenza A (RT-PCR) Influenza B (RT-PCR) RSV (RT-PCR) SARS-CoV-2 RNA (RT-PCR)
[2025-04-04] MEDS: SODIUM CHLORIDE 0.9% IV 1,000 ML 125 ML IV CONT (10:59)
[2025-04-04] MEDS: ASPIRIN 81 MG ENTERIC TABLET PO (11:00)
[2025-04-04] MEDS: PANTOPRAZOLE 40 MG TABLET PO (11:08)
[2025-04-04] MEDS: TRIAMCINOLONE ACET 0.1% CREAM 80 GM TUBE 1 APPLIC TOPICAL (11:13)
[2025-04-04] MEDS: THIAMINE HCL 200 MG/2 ML VIAL 100 MG IV PUSH (12:11)
[2025-04-04] MEDS: LOSARTAN POTASSIUM 100 MG TABLET PO (12:12)
[2025-04-04] MEDS: DEXTROSE 5%/0.9% SOD CHL 1,000 ML 125 ML IV CONT ×2 (12:14→21:52)
[2025-04-04] MEDS: FOLIC ACID 1 MG/0.2 ML INJ IV PUSH (12:16)
--- NOTE | 2025-04-04 12:21 | PCSTNOTE ---
Please refer to the Bedside Swallow Evaluation in the EMR. Please note, silent aspiration cannot be ruled out at bedside. The above pt, admitted with altered mental status and PMH of COPD, ADD, hypertension, hyperlipidemia, anxiety, drug abuse, and alcohol abuse, was seen for a swallow evaluation at the bedside. Pt is very confused. Cursory oral motor assessment revealed labial and lingual function to be WFL re strength and ROM. Prior to oral trials, vocal quality was clear. Poor natural noted; pt is essentially edentulous. He reported having dentures but said he wasn't sure where they are. Pt was positioned upright and tested with trials of water via tsp, cup and straw; pudding via a spoon, and a cracker. The oral stages were WNL with the water and the pudding trials but increased bolus prep time was exhibited with the cracker which is likely due to his poor dentition. No pocketing or leakage was noted. Swallow reflex appeared timely and laryngeal elevation adequate. No overt s/s of aspiration were exhibited. Impression: functional swallowing ability Recommendation: level 5 minced & moist due to the poor dentition; level 0 regular liquids. Due to his extensive confusion, frequent observation is recommended during meals; pt must be positioned upright with all oral intake. Notify ST if further difficulty develops.
[2025-04-04] MEDS: METOPROLOL TARTRATE 50 MG TAB PO (16:08)
[2025-04-04] MEDS: LORazepam (*CRX) 0.5 MG TABLET PO (16:08)
[2025-04-05] VITALS (14 sets, daily range): BP systolic 176–181; BP diastolic 79–99; PULSE 85–112; RESP 14–24; TEMP 36.2–37.7; O2SAT 94–98
[2025-04-05] MEDS: SODIUM CHLORIDE 0.9% IVPB (01:37)
[2025-04-05] MEDS: PHENOBARBITAL SODIUM IVPB (01:37)
[2025-04-05] MEDS: PIPERACILLIN/TAZOBACTAM SOD 4.5 GM in SODIUM CHLORIDE 0.9% IV 100 ML 200 ML IVPB ×4 (02:19→20:26)
[2025-04-05 02:49] LABS: Estimated CRCL calculation 96 ml/min; Estimated Glomerular Filt Rate > 60
[2025-04-05] MEDS: LORazepam INJ (*CRX) 2 MG/ML VIAL IV PUSH (02:52)
[2025-04-05] MEDS: VANCOMYCIN 1,750 MG/NS 500 ML 1,750 MG/500 ML BAG 250 MG IVPB ×2 (04:12→15:26)
[2025-04-05] MEDS: DEXTROSE 5%/0.9% SOD CHL 1,000 ML 125 ML IV CONT (05:59)
--- NOTE | 2025-04-05 06:23 | P.PNCROSS_ITS ---
Event Note Event Note Event Note: Nursing staff called me because the patient was agitated restless anxious. Nichole leung reporting patient's CIWA score was 8 or 9. A stated that the patient wanted staff to stay in the room with him continuously. If you was left in the room alone he would jump out of bed. Patient does have a history of alcohol abuse. I went to evaluate the patient the patient has a bizarre affect. He was complaining of severe pain in his penis. The Fitzpatrick catheter in place and he was repeatedly yelling out that he needed to urinate. He was also repeatedly yelling out for his mom. He was reportedly alert oriented x4. However at the time of my exam the patient was avoiding questions I would ask. He told me not to put him on the spot. He eventually did tell me that we are at a Hospital and his name. He never did give me answers as to the month or year. Patient was not tremulous but was slightly diaphoretic. He was anxious and rolling around in the bed. He cap begging for us to give him something for anxiety. The patient was post have an MRI but staff is unable to get the ring off of the patient's finger. The patient supposedly had not had any drug or alcohol use in 5 years. However given his appearance I was concerned that he may be and alcohol withdrawal. I did give the patient a dose of phenobarbital to see if this would help with his symptoms. It did not changes clinical picture whatsoever. Not long after the phenobarbital had finished infusing the patient yet again jumped out of the bed and was trying to leave the hospital without being dressed. A faye fritz had to be called in order to have staff members manage the patient in get him back to bed. Subsequently I gave orders for soft wrist restraints and gave a 2 mg dose of IV Ativan. The patient is mental status is not likely due to alcohol withdrawal as far as I can tell given he has had no improvement in his symptoms with phenobarbital. Will place orders for p.r.n. Ativan. 40 minutes spent at patient's bedside in critical care activities. Due to a high probability of clinically significant, life threatening deterioration, the patient required my highest level of preparedness to intervene emergently and I personally spent this critical care time directly and personally managing the patient. This critical care time included obtaining a history; examining the patient; pulse oximetry; ordering and review of studies; arranging urgent treatment with development of a management plan; evaluation of patient's response to treatment; frequent reassessment; and discussions with other providers. It was exclusive of separately billable procedures and treating other patients and teaching time. Please see Assessment and Plan section and the rest of the note for further information on patient assessment and treatment.
[2025-04-05] MEDS: ENOXAPARIN 40 MG/0.4 ML SYRINGE SUB-Q (08:35)
[2025-04-05] MEDS: THIAMINE HCL 200 MG/2 ML VIAL 100 MG IV PUSH (08:37)
[2025-04-05] MEDS: MUPIROCIN 2% OINT 22 GM TUBE 1 APPLIC EACH NARE ×2 (08:40→20:30)
[2025-04-05] MEDS: LORazepam INJ (*CRX) 2 MG/ML VIAL 1 MG IV PUSH ×2 (08:59→20:29)
[2025-04-05] MEDS: FOLIC ACID 1 MG/0.2 ML INJ IV PUSH (09:00)
[2025-04-05] MEDS: TRIAMCINOLONE ACET 0.1% CREAM 80 GM TUBE 1 APPLIC TOPICAL ×2 (09:01→16:54)
--- NOTE | 2025-04-05 09:08 | P.PNIM_ITS ---
Progress Note: A&P Assessment and Plan (1) Altered mental status: Qualifiers: Altered mental status type: unspecified Qualified Code(s): R41.82 - Altered mental status, unspecified Code(s): R41.82 - Altered mental status, unspecified Status: Acute Plan 64 y/o M with PMH of COPD, ADD, hypertension, hyperlipidemia, anxiety, drug abuse on Suboxone, and alcohol abuse presents here with altered mental status. Altered mental status: Qualifiers: Altered mental status type: unspecified Qualified Code(s): R41.82 - Altered mental status, unspecified Code(s): R41.82 - Altered mental status, unspecified Status: Acute Assessment and Plan: confused, some difficulty with swallowing and choking episodes. Head CT was unremarkable. UDS and ethanol were negative. viral PCR negative. UA showed no indicators of infection. pending MRI. Neurology has been consulted. Need to rule out on latest seizure History of alcohol abuse Start thiamine folic acid IV 04/04 Sepsis: Code(s): A41.9 - Sepsis, unspecified organism Status: Acute Assessment and Plan: - meets SIRS criteria: HR >90, RR >20. - lactic acid: 0.8 - 30 mL/kg = 3L, given 2L bolus. Will give third L at 100 mL/hr x1 - suspected source: Multifocal pneumonia - started on azithromycin, ceftriaxone, and vancomycin. Upon further evaluation of HPI, some concern for choking and dysphagia. Will cover for aspiration pneumonia and exchanged to Zosyn and continue vancomycin as the patient's MRSA is positive. - blood cultures drawn on 04/03 - UA: 2+ protein, 2+ ketones - monitor hemodynamic stability Multifocal pneumonia: Code(s): J18.8 - Other pneumonia, unspecified organism Status: Acute Assessment and Plan: - CXR: Diffuse bilateral airspace disease. Findings can represent diffuse pulmonary edema versus multifocal pneumonia in appropriate clinical settings. Short-term follow-up chest radiograph is recommended after appropriate clinical therapy. - Chest CT: Scattered areas of honeycombing, groundglass opacities, and airspace opacities are seen in both lungs. Right pleuroparenchymal thickening is also noted. Findings likely represent an infectious/inflammatory process. possible aspiration, sepsis - started on Zosyn and Vancomycin on 04/03 - MRSA PCR + on 04/03, bactroban ordered - Viral PCR negative Sepsis had fever 100.4 yesterday Pending blood culture Follow-up CT chest abdomen pelvis Hypertension urgency Code(s): I10 - Essential (primary) hypertension Status: Chronic Assessment and Plan: Continue losartan 100 mg daily p.o., metoprolol 50 mg b.i.d. p.o. dehydration Start d5 normal saline IV 125 mL/hour Subjective Date/time seen: 04/05/25 09:08 Interval history: I saw examined patient today. Patient still confused, and restless. patient cannot provide reliable history. Patient had fever 100.4 yesterday yesterday, and low-grade fever today Exam Narrative: GENERAL: ill-appearing, in no acute distress. Well-nourished. - EYES: EOMI. Anicteric. - HENT: dry mucous membranes. - LUNGS: Clear to auscultation bilateral ly, no wheezing, rhonchi, or rales. - CARDIOVASCULAR: Regular rate and rhyth m. No murmur. No JVD. - ABDOMEN: Soft, non-tender and non-dist ended. No palpable masses. - EXTREMITIES: No edema. Peripheral puls es 2+. Non-tender. - NEUROLOGIC: No focal neurological defi cits. CN II-XII grossly intact. - PSYCHIATRIC: Awake, confused not orie nted x 3. anxious mood and affect. - SKIN: No rashes or lesions. Warm. - LYMPH: No cervical lymphadenopathy. Objective Data Vital Signs Vital Signs: Vital Signs - 24 hr 04/04/25 10:00 04/04/25 11:07 04/04/25 12:00 Temperature Pulse Rate 102 H 110 H Pulse Rate [Bilateral Pedal (Dorsalis Pedis) Palpation] 109 H Respiratory Rate Blood Pressure Pulse Oximetry Oxygen Delivery Fraction of Inspired Oxygen 04/04/25 12:00 04/04/25 13:04 04/04/25 14:00 Temperature 98.3 F Pulse Rate 109 H 103 H Pulse Rate [Bilateral Pedal (Dorsalis Pedis) Palpation] Respiratory Rate 20 Blood Pressure Pulse Oximetry 97 Oxygen Delivery Fraction of Inspired Oxygen 04/04/25 16:00 04/04/25 16:00 04/04/25 16:08 Temperature Pulse Rate 99 105 H Pulse Rate [Bilateral Pedal (Dorsalis Pedis) Palpation] 99 Respiratory Rate Blood Pressure Pulse Oximetry Oxygen Delivery Fraction of Inspired Oxygen 04/04/25 16:34 04/04/25 17:55 04/04/25 18:00 Temperature 98.3 F Pulse Rate 105 H 87 97 Pulse Rate [Bilateral Pedal (Dorsalis Pedis) Palpation] Respiratory Rate Blood Pressure 177/95 H 176/70 H Pulse Oximetry 95 Oxygen Delivery Fraction of Inspired Oxygen 04/04/25 19:33 04/04/25 20:00 04/04/25 20:00 Temperature 98.1 F Pulse Rate 90 96 Pulse Rate [Bilateral Pedal (Dorsalis Pedis) Palpation] 97 Respiratory Rate 20 Blood Pressure 178/81 H Pulse Oximetry 96 Oxygen Delivery Fraction of Inspired Oxygen 04/04/25 22:00 04/04/25 22:05 04/04/25 23:33 Temperature 99.4 F Pulse Rate 86 100 104 H Pulse Rate [Bilateral Pedal (Dorsalis Pedis) Palpation] Respiratory Rate 20 22 H Blood Pressure 158/70 H Pulse Oximetry 93 97 Oxygen Delivery Room Air Fraction of Inspired Oxygen 21 04/05/25 00:00 04/05/25 00:00 04/05/25 02:00 Temperature Pulse Rate 102 H 110 H Pulse Rate [Bilateral Pedal (Dorsalis Pedis) Palpation] 102 H Respiratory Rate Blood Pressure Pulse Oximetry Oxygen Delivery Fraction of Inspired Oxygen 04/05/25 04:00 04/05/25 04:18 04/05/25 06:00 Temperature 99.4 F Pulse Rate 103 H 103 H 95 Pulse Rate [Bilateral Pedal (Dorsalis Pedis) Palpation] Respiratory Rate 24 H Blood Pressure 177/96 H Pulse Oximetry 96 Oxygen Delivery Fraction of Inspired Oxygen 04/05/25 08:00 04/05/25 08:00 04/05/25 08:38 Temperature 99.8 F H Pulse Rate 94 95 Pulse Rate [Bilateral Pedal (Dorsalis Pedis) Palpation] 109 H Respiratory Rate 20 Blood Pressure 181/96 H Pulse Oximetry 95 Oxygen Delivery Fraction of Inspired Oxygen Intake/Output Intake/Output: Intake & Output 04/02/25 04/03/25 04/04/25 04/05/25 23:59 23:59 23:59 23:59 Intake Total 1650 3465.1 1708.3231 Output Total 200 1750 1400 Balance 1450 1715.1 308.3231 Meds/Results Medications: Active Medications Generic Name Dose Route Start Last Admin Trade Name Freq PRN Reason Stop Dose Admin Acetaminophen 650 mg 04/03/25 18:24 Acetaminophen 650 Mg Suppository RECTAL Q6H PRN Mild Pain (1-3) or Fever Aspirin 81 mg 04/04/25 09:55 04/05/25 08:37 Aspirin 81 Mg Enteric Tablet PO 81 mg QAM HUNG Administration Atorvastatin Calcium 20 mg 04/05/25 09:00 04/05/25 08:38 Atorvastatin 20 Mg Tablet PO 20 mg DAILY [facility]G Administration Enoxaparin Sodium 40 mg 04/04/25 09:00 04/05/25 08:35 Enoxaparin 40 Mg/0.4 Ml Syringe SUB-Q 40 mg DAILY [facility]G Administration Folic Acid 1 mg 04/04/25 11:15 04/05/25 09:00 Folic Acid 1 Mg/0.2 Ml Inj IV PUSH 1 mg QAM [facility]UNG Administration Gabapentin 600 mg 04/04/25 17:00 04/05/25 08:37 Gabapentin 300 Mg Capsule BY MOUTH 600 mg TID HUNG Administration Hydralazine HCl 10 mg 04/03/25 18:25 Hydralazine Hcl 20 Mg/Ml Vial IV PUSH Q8H PRN Blood Pressure - >180/90 Piperacillin Sod/Tazobactam 100 mls @ 200 mls/hr 04/03/25 20:00 04/05/25 08:35 Sod 4.5 gm/ Sodium Chloride IVPB 200 mls/hr Q6H HUNG Administration Dextrose/Sodium Chloride 1,000 mls @ 125 mls/hr 04/04/25 11:20 04/05/25 05:59 Dextrose 5% Sodium Chloride 0.9% IV CONT 125 mls/hr .Q8H HUNG Administration Vancomycin HCl 1,750 mg in 500 mls @ 250 mls/hr 04/05/25 04:00 04/05/25 06:12 Vancomycin 1,750 Mg/Ns 500 Ml IVPB Infused Q12H HUNG Infusion Lorazepam 1 mg 04/05/25 06:30 04/05/25 08:59 Lorazepam Inj (*Crx) 2 Mg/Ml Vial IV PUSH 1 mg Q6H PRN Administration Anxiety Losartan Potassium 100 mg 04/04/25 10:55 04/05/25 08:38 Losartan Potassium 100 Mg Tablet PO 100 mg DAILY [facility]G Administration Metoprolol Tartrate 50 mg 04/04/25 17:00 07/10/25 08:38 Metoprolol Tartrate 50 Mg Tab PO 50 mg BID HUNG Administration Mupirocin 1 applic 04/03/25 21:00 04/05/25 08:40 Mupirocin 2% Oint 22 Gm Tube EACH NARE 04/08/25 09:01 1 applic Q12HR [facility]UNG Administration Ondansetron HCl 4 mg 04/03/25 18:24 Ondansetron Inj 4 Mg/2 Ml Vial IV PUSH Q6H PRN Nausea And Vomiting Pantoprazole Sodium 40 mg 04/04/25 09:00 04/05/25 08:37 Pantoprazole 40 Mg Tablet PO 40 mg QAM [facility]G Administration Thiamine HCl 100 mg 04/04/25 11:20 04/05/25 08:37 Thiamine Hcl 200 Mg/2 Ml Vial IV PUSH 100 mg QAM [facility]G Administration Triamcinolone Acetonide 1 applic 04/04/25 09:00 04/05/25 09:01 Triamcinolone Acet 0.1% Cream 80 Gm Tube TOPICAL 1 applic BID HUNG Administration Radiology Results: ITS Impressions Head CT 04/03/25 11:05 IMPRESSION: No evidence for acute intracranial hemorrhage or calvarial fracture. Chest X-Ray 04/03/25 13:17 IMPRESSION: Diffuse bilateral airspace disease. Findings can represent diffuse pulmonary edema versus multifocal pneumonia in appropriate clinical settings. Short-term follow-up chest radiograph is recommended after appropriate clinical therapy. Chest CT 04/03/25 15:31 IMPRESSION: Scattered areas of honeycombing, groundglass opacities, and airspace opacities are seen in both lungs. Right pleuroparenchymal thickening is also noted. Findings likely represent an infectious/inflammatory process. Clinical correlation is recommended. Short term follow-up chest radiograph is recommended after appropriate clinical therapy. Labs Labs: Laboratory Results - last 24 hr 04/04/25 04/05/25 04/05/25 18:35 00:49 02:25 Creatinine 0.83 Estim Creat Clear Calc 96 Estimated GFR > 60 POC Capillary Glucose 121 H 148 H Vancomycin Trough 13.3
[2025-04-05 10:53] LABS: Hematocrit 36.3 % (42.0-52.0); Hemoglobin 12.2 g/dL (14.0-18.0); Immature Granulocyte Percent A 1.2 % (0-0.5); Immature Platelet Fraction Pct 5.2 % (0.9-11.2); Lymphocytes Absolute Auto 0.93 K/mm3 (0.9-3.2); Mean Corpuscular HGB Conc 33.6 g/dl (32-36); Mean Corpuscular Hemoglobin 29.2 pg (26-34); Mean Corpuscular Volume 86.8 fl (80-100); Nucleated Red Blood Cells Absolute Auto 0.000 K/mm3 (0.0-0.012); Nucleated Red Blood Cells Perc 0.0 % (0.0-0.2); Platelet Count Result 117 k/mm3 (150-375); Red Blood Count 4.18 M/mm3 (4.6-6.20); White Blood Count 5.7 K/mm3 (4.5-10.0)
[2025-04-05 11:21] LABS: Alanine Aminotransferase 17 U/L (6-50); Albumin Level 3.4 g/dL (3.5-5.1); Alkaline Phosphatase 49 U/L (38-126); Anion Gap 9 mmol/L (4-12); Aspartate Amino Transferase 28 U/L (17-59); Bilirubin,Total 0.7 mg/dL (0.2-1.3); Blood Urea Nitrogen 8 mg/dL (9-20); Calcium 8.2 mg/dL (8.4-10.2); Carbon Dioxide 25 mmol/L (22-30); Chloride 108 mmol/L (98-107); Glucose 145 mg/dL (65-110); Potassium 3.3 mmol/L (3.4-5.0); Sodium 142 mmol/L (137-145); Total Protein 6.9 g/dL (6.3-8.2)
[2025-04-05] MEDS: GABAPENTIN 300 MG CAPSULE 600 MG BY MOUTH (12:38)
[2025-04-05] MEDS: HALOPERIDOL LACTATE 5 MG/ML VIAL IV PUSH (16:13)
[2025-04-05] MEDS: DEXTROSE 5%/0.9% SOD CHL 1,000 ML 75 ML IV CONT (16:45)
[2025-04-05] MEDS: ACETAMINOPHEN 650 MG SUPPOSITORY RECTAL (17:15)
--- NOTE | 2025-04-05 17:39 | PC.NURSE ---
Pt transferred to room 245 at 1730. Report given to FROILAN Chris.
[2025-04-06] VITALS (11 sets, daily range): BP systolic 146–192; BP diastolic 70–115; PULSE 82–117; RESP 18–22; TEMP 36.2–36.6; O2SAT 95–100
[2025-04-06] MEDS: PIPERACILLIN/TAZOBACTAM SOD 4.5 GM in SODIUM CHLORIDE 0.9% IV 100 ML 200 ML IVPB ×2 (02:55→09:56)
[2025-04-06] MEDS: VANCOMYCIN 1,750 MG/NS 500 ML 1,750 MG/500 ML BAG 250 MG IVPB ×2 (04:45→23:07)
--- NOTE | 2025-04-06 08:04 | P.PNIM_ITS ---
Progress Note: A&P Assessment and Plan (1) Altered mental status: Qualifiers: Altered mental status type: unspecified Qualified Code(s): R41.82 - Altered mental status, unspecified Code(s): R41.82 - Altered mental status, unspecified Status: Acute Plan 64 y/o M with PMH of COPD, ADD, hypertension, hyperlipidemia, anxiety, drug abuse on Suboxone, and alcohol abuse presents here with altered mental status. Altered mental status: Qualifiers: Altered mental status type: unspecified Qualified Code(s): R41.82 - Altered mental status, unspecified Code(s): R41.82 - Altered mental status, unspecified Status: Acute Assessment and Plan: confused, some difficulty with swallowing and choking episodes. Head CT was unremarkable. UDS and ethanol were negative. viral PCR negative. UA showed no indicators of infection. pending MRI. Neurology has been consulted. Need to rule out on latest seizure History of alcohol abuse Start thiamine folic acid IV 04/04 BCX 04/03/25 showed no growth. pt is restless, MRI can't be performed I discussed the case with neurologist Edvin, he agreed to proceed LP today and he would alberto EEG and recommended to hold antiviral med now Pending CSF culture, viral studies, Gram stain, and chemical analysis Sepsis: Code(s): A41.9 - Sepsis, unspecified organism Status: Acute Assessment and Plan: - meets SIRS criteria: HR >90, RR >20. - lactic acid: 0.8 - 30 mL/kg = 3L, given 2L bolus. Will give third L at 100 mL/hr x1 - suspected source: Multifocal pneumonia - started on azithromycin, ceftriaxone, and vancomycin. Upon further evaluation of HPI, some concern for choking and dysphagia. Will cover for aspiration pneumonia and exchanged to Zosyn and continue vancomycin as the patient's MRSA is positive. - blood cultures drawn on 04/03 - UA: 2+ protein, 2+ ketones - monitor hemodynamic stability Multifocal pneumonia: Code(s): J18.8 - Other pneumonia, unspecified organism Status: Acute Assessment and Plan: CXR: Diffuse bilateral airspace disease. Findings can represent diffuse pulmonary edema versus multifocal pneumonia in appropriate clinical settings. Short-term follow-up chest radiograph is recommended after appropriate clinical therapy. - Chest CT: Scattered areas of honeycombing, groundglass opacities, and airspace opacities are seen in both lungs. Right pleuroparenchymal thickening is also noted. Findings likely represent an infectious/inflammatory process. possible aspiration, sepsis - started on Zosyn and Vancomycin on 04/03 - MRSA PCR + on 04/03, bactroban ordered - Viral PCR negative Sepsis had fever 100.4 yesterday Pending blood culture Follow-up CT chest abdomen pelvis 04/05 Highly suggestive pneumonia in the left upper lobe. No evidence of intestinal obstruction seen. Focal dilatation in the area of the bowel surgery is noted. Clinical correlation and follow-up advised. Hypertension urgency Code(s): I10 - Essential (primary) hypertension Status: Chronic Assessment and Plan: Continue losartan 100 mg daily p.o., metoprolol 50 mg b.i.d. p.o. dehydration Start d5 normal saline IV 125 mL/hour Subjective Date/time seen: 04/06/25 08:04 Interval history: I saw examined patient today in presents of patient's mother. Patient was drowsy, not agitated Cannot provide history Patient had fever 100.4 yesterday yesterday, and low-grade fever today Exam Narrative: GENERAL: ill-appearing, in no acute distress. Well-nourished. - EYES: EOMI. Anicteric. - HENT: dry mucous membranes. - LUNGS: Clear to auscultation bilateral ly, no wheezing, rhonchi, or rales. - CARDIOVASCULAR: Regular rate and rhyth m. No murmur. No JVD. - ABDOMEN: Soft, non-tender and non-dist ended. No palpable masses. - EXTREMITIES: No edema. Peripheral puls es 2+. Non-tender. - NEUROLOGIC: No focal neurological defi cits. CN II-XII grossly intact. - PSYCHIATRIC: Awake, confused not orie nted x 3. Drowsy mood and affect. - SKIN: No rashes or lesions. Warm. - LYMPH: No cervical lymphadenopathy. Objective Data Vital Signs Vital Signs: Vital Signs - 24 hr 04/05/25 10:00 04/05/25 11:58 04/05/25 12:00 Temperature 99.9 F H Pulse Rate 100 112 H Pulse Rate [Bilateral Pedal (Dorsalis Pedis) Palpation] 85 Respiratory Rate 14 Blood Pressure 176/79 H Pulse Oximetry 94 Oxygen Delivery Fraction of Inspired Oxygen 04/05/25 17:42 04/05/25 17:51 04/05/25 17:51 Temperature 97.1 F L Pulse Rate 93 93 Pulse Rate [Bilateral Pedal (Dorsalis Pedis) Palpation] 94 Respiratory Rate 16 16 Blood Pressure 176/99 H 176/99 H Pulse Oximetry 95 95 Oxygen Delivery Room Air Fraction of Inspired Oxygen 04/05/25 20:25 04/05/25 22:00 04/05/25 23:18 Temperature 98.1 F Pulse Rate 93 87 Pulse Rate [Bilateral Pedal (Dorsalis Pedis) Palpation] Respiratory Rate 16 18 Blood Pressure 177/88 H Pulse Oximetry 95 98 95 Oxygen Delivery Room Air Room Air Fraction of Inspired Oxygen 04/06/25 06:00 Temperature 98 F Pulse Rate 83 Pulse Rate [Bilateral Pedal (Dorsalis Pedis) Palpation] Respiratory Rate 18 Blood Pressure 146/70 H Pulse Oximetry 95 Oxygen Delivery Fraction of Inspired Oxygen Intake/Output Intake/Output: Intake & Output 04/03/25 04/04/25 04/05/25 04/06/25 23:59 23:59 23:59 23:59 Intake Total 1650 3465.1 3508.3231 0 Output Total 200 1750 1400 850 Balance 1450 1715.1 2108.3231 -850 Meds/Results Medications: Active Medications Generic Name Dose Route Start Last Admin Trade Name Freq PRN Reason Stop Dose Admin Acetaminophen 650 mg 04/03/25 18:24 04/05/25 17:15 Acetaminophen 650 Mg Suppository RECTAL 650 mg Q6H PRN Administration Mild Pain (1-3) or Fever Aspirin 81 mg 04/04/25 09:55 04/05/25 09:28 Aspirin 81 Mg Enteric Tablet PO Not Given QAM [facility] Atorvastatin Calcium 20 mg 04/05/25 09:00 04/05/25 09:28 Atorvastatin 20 Mg Tablet PO Not Given DAILY [facility] Enoxaparin Sodium 40 mg 04/04/25 09:00 04/05/25 08:35 Enoxaparin 40 Mg/0.4 Ml Syringe SUB-Q 40 mg DAILY [facility] Administration Folic Acid 1 mg 04/04/25 11:15 04/05/25 09:00 Folic Acid 1 Mg/0.2 Ml Inj IV PUSH 1 mg QAM [facility] Administration Gabapentin 600 mg 04/04/25 17:00 04/05/25 16:57 Gabapentin 300 Mg Capsule BY MOUTH Not Given TID [facility] Hydralazine HCl 10 mg 04/03/25 18:25 Hydralazine Hcl 20 Mg/Ml Vial IV PUSH Q8H PRN Blood Pressure - >180/90 Piperacillin Sod/Tazobactam 100 mls @ 200 mls/hr 04/03/25 20:00 04/06/25 02:55 Sod 4.5 gm/ Sodium Chloride IVPB 200 mls/hr Q6H [facility]G Administration Dextrose/Sodium Chloride 1,000 mls @ 75 mls/hr 04/04/25 11:20 04/05/25 16:45 Dextrose 5% Sodium Chloride 0.9% IV CONT 75 mls/hr .[id number] [facility] Administration Vancomycin HCl 1,750 mg in 500 mls @ 250 mls/hr 04/05/25 04:00 04/06/25 04:45 Vancomycin 1,750 Mg/Ns 500 Ml IVPB 250 mls/hr Q12H [facility] Administration Lorazepam 1 mg 04/05/25 06:30 04/05/25 20:29 Lorazepam Inj (*Crx) 2 Mg/Ml Vial IV PUSH 1 mg Q6H PRN Administration Anxiety Losartan Potassium 100 mg 04/04/25 10:55 04/05/25 09:27 Losartan Potassium 100 Mg Tablet PO Not Given DAILY [facility]G Metoprolol Tartrate 50 mg 04/04/25 17:00 04/05/25 16:58 Metoprolol Tartrate 50 Mg Tab PO Not Given BID HUNG Mupirocin 1 applic 04/03/25 21:00 04/05/25 20:30 Mupirocin 2% Oint 22 Gm Tube EACH NARE 04/08/25 09:01 1 applic Q12HR [facility]UNG Administration Nicotine 1 patch 04/06/25 09:00 Nicotine (*Pbkc) 21 Mg Patch TRANSDERM DAILY [facility]G Ondansetron HCl 4 mg 04/03/25 18:24 Ondansetron Inj 4 Mg/2 Ml Vial IV PUSH Q6H PRN Nausea And Vomiting Pantoprazole Sodium 40 mg 04/04/25 09:00 04/05/25 09:28 Pantoprazole 40 Mg Tablet PO Not Given QAM HUNG Thiamine HCl 100 mg 04/04/25 11:20 04/05/25 08:37 Thiamine Hcl 200 Mg/2 Ml Vial IV PUSH 100 mg QAM [facility]UNG Administration Triamcinolone Acetonide 1 applic 04/04/25 09:00 04/05/25 16:54 Triamcinolone Acet 0.1% Cream 80 Gm Tube TOPICAL 1 applic BID HUNG Administration Radiology Results: ITS Impressions Head CT 04/03/25 11:05 IMPRESSION: No evidence for acute intracranial hemorrhage or calvarial fracture. Chest X-Ray 04/03/25 13:17 IMPRESSION: Diffuse bilateral airspace disease. Findings can represent diffuse pulmonary edema versus multifocal pneumonia in appropriate clinical settings. Short-term follow-up chest radiograph is recommended after appropriate clinical therapy. Chest CT 04/03/25 15:31 IMPRESSION: Scattered areas of honeycombing, groundglass opacities, and airspace opacities are seen in both lungs. Right pleuroparenchymal thickening is also noted. Findings likely represent an infectious/inflammatory process. Clinical correlation is recommended. Short term follow-up chest radiograph is recommended after appropriate clinical therapy. Chest/Abdomen/Pelvis CT 04/05/25 16:53 IMPRESSION: CHEST: 1. Highly suggestive pneumonia in the left upper lobe. 2. Trace of right pleural effusion with adjacent atelectasis. ABDOMEN/PELVIS: 1. No evidence of intestinal obstruction seen. Focal dilatation in the area of the bowel surgery is noted. Clinical correlation and follow-up advised. 2. Bilateral fat containing inguinal hernias. Labs Labs: Laboratory Results - last 24 hr 04/05/25 04/05/25 02:25 10:41 WBC 5.7 RBC 4.18 L Hgb 12.2 L Hct 36.3 L MCV 86.8 MCH 29.2 MCHC 33.6 RDW 15.4 H Plt Count 117 L MPV 11.7 H Immature Gran % (Auto) 1.2 H Neut % (Auto) 63.7 Lymph % (Auto) 16.3 L [place] % (Auto) 15.4 H Eos % (Auto) 3.1 Baso % (Auto) 0.3 Lymph # (Auto) 0.93 [place] # (Auto) 0.9 H Eos # (Auto) 0.2 Baso # (Auto) 0.0 Abs Immat Gran (auto) 0.07 H Absolute Neuts (auto) 3.6 Absolute Nucleated RBC 0.000 Nucleated RBC % 0.0 % Immature Plt Fraction 5.2 Sodium 142 Cancelled Potassium 3.3 L Cancelled Chloride 108 H Cancelled Carbon Dioxide 25 Cancelled Anion Gap 9 Cancelled BUN 8 L D Cancelled Creatinine 0.83 Cancelled Estim Creat Clear Calc 96 Cancelled Estimated GFR > 60 Cancelled Glucose 145 H Cancelled Calcium 8.2 L Cancelled Total Bilirubin 0.7 Cancelled AST 28 Cancelled ALT 17 Cancelled Alkaline Phosphatase 49 Cancelled Total Protein 6.9 Cancelled Albumin 3.4 L Cancelled
[2025-04-06 09:41] LABS: Hematocrit 39.5 % (42.0-52.0); Hemoglobin 13.1 g/dL (14.0-18.0); Immature Granulocyte Percent A 1.2 % (0-0.5); Lymphocytes Absolute Auto 0.72 K/mm3 (0.9-3.2); Mean Corpuscular HGB Conc 33.2 g/dl (32-36); Mean Corpuscular Hemoglobin 28.9 pg (26-34); Mean Corpuscular Volume 87.2 fl (80-100); Nucleated Red Blood Cells Absolute Auto 0.000 K/mm3 (0.0-0.012); Nucleated Red Blood Cells Perc 0.0 % (0.0-0.2); Platelet Count Result 114 k/mm3 (150-375); Red Blood Count 4.53 M/mm3 (4.6-6.20); White Blood Count 5.2 K/mm3 (4.5-10.0)
[2025-04-06 09:56] LABS: INR 1.3; Prothrombin Time 15.7 Seconds (11.1-14.7)
[2025-04-06 09:57] LABS: Partial Thromboplastin Time 35.4 Seconds (22.3-36.8)
[2025-04-06] MEDS: THIAMINE HCL 200 MG/2 ML VIAL 100 MG IV PUSH (10:01)
[2025-04-06] MEDS: TRIAMCINOLONE ACET 0.1% CREAM 80 GM TUBE 1 APPLIC TOPICAL ×2 (10:02→16:51)
[2025-04-06] MEDS: MUPIROCIN 2% OINT 22 GM TUBE 1 APPLIC EACH NARE ×2 (10:02→21:36)
[2025-04-06 10:14] LABS: Anion Gap 11 mmol/L (4-12); Blood Urea Nitrogen 6 mg/dL (9-20); Calcium 7.7 mg/dL (8.4-10.2); Carbon Dioxide 25 mmol/L (22-30); Chloride 108 mmol/L (98-107); Estimated CRCL calculation 67 ml/min; Estimated Glomerular Filt Rate > 60; Glucose 118 mg/dL (65-110); Potassium 2.7 mmol/L (3.4-5.0); Sodium 144 mmol/L (137-145)
[2025-04-06] MEDS: POTASSIUM CHLORIDE INJ 40 MEQ in SODIUM CHLORIDE 0.9% IV 500 ML 130 MEQ IVPB (11:26)
[2025-04-06] MEDS: FOLIC ACID 1 MG/0.2 ML INJ IV PUSH (11:53)
[2025-04-06] MEDS: LORazepam INJ (*CRX) 2 MG/ML VIAL 1 MG IV PUSH ×2 (12:18→23:08)
[2025-04-06 15:36] LABS: Nucleated Cell CSF 0 /uL (0-5)
[2025-04-06 15:37] LABS: Red Blood Cell CSF 0 (0-2)
[2025-04-06] MEDS: cefTRIAXone 2 GM in SODIUM CHLORIDE 0.9% IV 100 ML 200 ML IVPB (16:00)
[2025-04-06 17:45] LABS: Neutrophils CSF 0 % (0-6)
[2025-04-06 17:46] LABS: Lymphocytes CSF 50 % (40-80); Monocytes CSF 50 % (15-45)
[2025-04-06 23:00] LABS: Potassium 3.0 mmol/L (3.4-5.0)
[2025-04-07] VITALS (12 sets, daily range): BP systolic 121–182; BP diastolic 63–88; PULSE 86–122; RESP 16–20; TEMP 36.6–36.8; O2SAT 96–98
[2025-04-07] MEDS: cefTRIAXone 2 GM in SODIUM CHLORIDE 0.9% IV 100 ML 200 ML IVPB (03:45)
[2025-04-07] MEDS: DEXTROSE 5%/0.9% SOD CHL 1,000 ML 75 ML IV CONT ×3 (06:50→07:33)
[2025-04-07 08:53] LABS: Hematocrit 36.2 % (42.0-52.0); Hemoglobin 11.8 g/dL (14.0-18.0); Immature Granulocyte Percent A 1.0 % (0-0.5); Lymphocytes Absolute Auto 0.82 K/mm3 (0.9-3.2); Mean Corpuscular HGB Conc 32.6 g/dl (32-36); Mean Corpuscular Hemoglobin 28.8 pg (26-34); Mean Corpuscular Volume 88.3 fl (80-100); Nucleated Red Blood Cells Absolute Auto 0.000 K/mm3 (0.0-0.012); Nucleated Red Blood Cells Perc 0.0 % (0.0-0.2); Platelet Count Result 130 k/mm3 (150-375); Red Blood Count 4.10 M/mm3 (4.6-6.20); White Blood Count 5.8 K/mm3 (4.5-10.0)
--- NOTE | 2025-04-07 08:59 | PM.IMPN ---
Progress Note: A&P Assessment and Plan (1) Altered mental status: Qualifiers: Altered mental status type: unspecified Qualified Code(s): R41.82 - Altered mental status, unspecified Code(s): R41.82 - Altered mental status, unspecified Status: Acute Plan 64 y/o M with PMH of COPD, ADD, hypertension, hyperlipidemia, anxiety, drug abuse on Suboxone, and alcohol abuse presents here with altered mental status. Altered mental status: Qualifiers: Altered mental status type: unspecified Qualified Code(s): R41.82 - Altered mental status, unspecified Code(s): R41.82 - Altered mental status, unspecified Status: Acute Assessment and Plan: confused, some difficulty with swallowing and choking episodes. Head CT was unremarkable. UDS and ethanol were negative. viral PCR negative. UA showed no indicators of infection. pending MRI. Neurology has been consulted. Need to rule out on latest seizure History of alcohol abuse Start thiamine folic acid IV 04/04 BCX 04/03/25 showed no growth. pt is restless, MRI can't be performed I discussed the case with neurologist Edvin, he agreed to proceed LP today and he would alberto EEG and recommended to hold antiviral med now 04/05 Pending CSF culture, viral studies, Gram stain, and chemical analysis Patient became alert oriented today. Brain MRI showed mild increased T2 signal intensity in the bilateral parieto-occipital regions suspicious for posterior reversible encephalopathy syndrome (PRES) typically presenting with headaches, seizures, encephalopathy and visual disturbance. This could result from severe hypertension, sepsis, alcohol hepatitis, hyperammonemia, drug toxicity, hemolytic uremic syndrome or thrombocytopenic thrombotic purpura. CSF clear lymphocyte 50%, right blood cells 0 Sepsis: Code(s): A41.9 - Sepsis, unspecified organism Status: Acute Assessment and Plan: - meets SIRS criteria: HR >90, RR >20. - lactic acid: 0.8 - 30 mL/kg = 3L, given 2L bolus. Will give third L at 100 mL/hr x1 - suspected source: Multifocal pneumonia - started on azithromycin, ceftriaxone, and vancomycin. Upon further evaluation of HPI, some concern for choking and dysphagia. Will cover for aspiration pneumonia and exchanged to Zosyn and continue vancomycin as the patient's MRSA is positive. - blood cultures drawn on 04/03 - UA: 2+ protein, 2+ ketones - monitor hemodynamic stability Multifocal pneumonia: Code(s): J18.8 - Other pneumonia, unspecified organism Status: Acute Assessment and Plan: CXR: Diffuse bilateral airspace disease. Findings can represent diffuse pulmonary edema versus multifocal pneumonia in appropriate clinical settings. Short-term follow-up chest radiograph is recommended after appropriate clinical therapy. - Chest CT: Scattered areas of honeycombing, groundglass opacities, and airspace opacities are seen in both lungs. Right pleuroparenchymal thickening is also noted. Findings likely represent an infectious/inflammatory process. possible aspiration, sepsis - started on Zosyn and Vancomycin on 04/03 - MRSA PCR + on 04/03, bactroban ordered - Viral PCR negative changed to vancomycin and ceftriaxone, discontinued Zosyn 04/06. CSF analysis does not suggest bacterial infection. Will change to doxycycline p.o. Augmentin p.o. 04/06 Diarrhea Follow-up C diff Sepsis had fever 100.4 yesterday No growth from blood culture Follow-up CT chest abdomen pelvis 04/05 Highly suggestive pneumonia in the left upper lobe. No evidence of intestinal obstruction seen. Focal dilatation in the area of the bowel surgery is noted. Clinical correlation and follow-up advised. Hypertension urgency Code(s): I10 - Essential (primary) hypertension Status: Chronic Assessment and Plan: Continue losartan 100 mg daily p.o., metoprolol 50 mg b.i.d. p.o. dehydration Start d5 normal saline IV 125 mL/hour Subjective Date/time seen: 04/07/25 08:59 Interval history: I saw examined patient today in presents of patient's mother. Patient is alert oriented x3, feels tired, denies headache, chest pain. Patient has diarrhea today Exam Narrative: GENERAL: ill-appearing, in no acute distress. Well-nourished. - EYES: EOMI. Anicteric. - HENT: dry mucous membranes. - LUNGS: Clear to auscultation bilaterally, no wheezing, rhonchi, or rales. - CARDIOVASCULAR: Regular rate and rhythm. No murmur. No JVD. - ABDOMEN: Soft, non-tender and non-distended. No palpable masses. - EXTREMITIES: No edema. Peripheral pulses 2+. Non-tender. - NEUROLOGIC: No focal neurological deficits. CN II-XII grossly intact. - PSYCHIATRIC: Awake, alert and oriented x 3. Drowsy mood and affect. - SKIN: No rashes or lesions. Warm. - LYMPH: No cervical lymphadenopathy. Objective Data Vital Signs Vital Signs: Vital Signs - 24 hr 04/06/25 12:00 04/06/25 13:20 04/06/25 14:40 Temperature Pulse Rate 83 90 91 Respiratory Rate 22 H 20 Blood Pressure 192/109 H 182/115 H Pulse Oximetry 95 96 Oxygen Delivery Fraction of Inspired Oxygen 04/06/25 16:00 04/06/25 17:59 04/06/25 20:00 Temperature Pulse Rate 82 107 H Respiratory Rate Blood Pressure 167/99 H Pulse Oximetry Oxygen Delivery Fraction of Inspired Oxygen 04/06/25 20:15 04/06/25 21:36 04/06/25 22:00 Temperature 97.1 F L Pulse Rate 82 117 H Respiratory Rate 20 18 Blood Pressure 177/80 H Pulse Oximetry 96 97 100 Oxygen Delivery Room Air Room Air Fraction of Inspired Oxygen 21 04/07/25 00:00 04/07/25 04:00 04/07/25 06:00 Temperature 98.2 F Pulse Rate 122 H 97 110 H Respiratory Rate 18 Blood Pressure 148/71 H Pulse Oximetry 98 Oxygen Delivery Fraction of Inspired Oxygen Intake/Output Intake/Output: Intake & Output 04/04/25 04/05/25 04/06/25 04/07/25 23:59 23:59 23:59 23:59 Intake Total 3465.1 3508.3231 2180 503.8 Output Total 1750 1400 2400 2350 Balance 1715.1 2108.3231 -220 -1846.2 Meds/Results Medications: Active Medications Generic Name Dose Route Start Last Admin Trade Name Freq PRN Reason Stop Dose Admin Acetaminophen 650 mg 04/03/25 18:24 04/05/25 17:15 Acetaminophen 650 Mg Suppository RECTAL 650 mg Q6H PRN Administration Mild Pain (1-3) or Fever Aspirin 81 mg 04/04/25 09:55 04/06/25 11:27 Aspirin 81 Mg Enteric Tablet PO Not Given QAM [facility] Atorvastatin Calcium 20 mg 04/05/25 09:00 04/06/25 11:27 Atorvastatin 20 Mg Tablet PO Not Given DAILY [facility] Enoxaparin Sodium 40 mg 04/04/25 09:00 04/06/25 09:20 Enoxaparin 40 Mg/0.4 Ml Syringe SUB-Q Not Given DAILY [facility] Folic Acid 1 mg 04/04/25 11:15 04/06/25 11:53 Folic Acid 1 Mg/0.2 Ml Inj IV PUSH 1 mg QAM [facility] Administration Gabapentin 600 mg 04/04/25 17:00 04/06/25 16:46 Gabapentin 300 Mg Capsule BY MOUTH Not Given TID [facility] Hydralazine HCl 10 mg 04/03/25 18:25 04/06/25 16:51 Hydralazine Hcl 20 Mg/Ml Vial IV PUSH 10 mg Q8H PRN Administration Blood Pressure - >180/90 Dextrose/Sodium Chloride 1,000 mls @ 75 mls/hr 04/04/25 11:20 04/07/25 07:33 Dextrose 5% Sodium Chloride 0.9% IV CONT 75 mls/hr .[id number] [facility] Administration Ceftriaxone Sodium 2 gm/ 100 mls @ 200 mls/hr 04/06/25 15:00 04/07/25 03:45 Sodium Chloride IVPB 200 mls/hr Q12H [facility] Administration Vancomycin HCl 1,750 mg in 500 mls @ 250 mls/hr 04/07/25 00:00 04/06/25 23:07 Vancomycin 1,750 Mg/Ns 500 Ml IVPB 250 mls/hr Q18H [facility] Administration Lorazepam 1 mg 04/05/25 06:30 04/06/25 23:08 Lorazepam Inj (*Crx) 2 Mg/Ml Vial IV PUSH 1 mg Q6H PRN Administration Anxiety Losartan Potassium 100 mg 04/04/25 10:55 04/06/25 11:27 Losartan Potassium 100 Mg Tablet PO Not Given DAILY [facility] Metoprolol Tartrate 50 mg 04/04/25 17:00 04/06/25 16:51 Metoprolol Tartrate 50 Mg Tab PO Not Given BID [facility] Mupirocin 1 applic 04/03/25 21:00 04/06/25 21:36 Mupirocin 2% Oint 22 Gm Tube EACH NARE 04/08/25 09:01 1 applic Q12HR [facility] Administration Nicotine 1 patch 04/06/25 09:00 04/06/25 10:02 Nicotine (*Pbkc) 21 Mg Patch TRANSDERM Not Given DAILY [facility] Ondansetron HCl 4 mg 04/03/25 18:24 Ondansetron Inj 4 Mg/2 Ml Vial IV PUSH Q6H PRN Nausea And Vomiting Pantoprazole Sodium 40 mg 04/04/25 09:00 04/06/25 11:26 Pantoprazole 40 Mg Tablet PO Not Given QAM [facility] Thiamine HCl 100 mg 04/04/25 11:20 04/06/25 10:01 Thiamine Hcl 200 Mg/2 Ml Vial IV PUSH 100 mg QAM [facility] Administration Triamcinolone Acetonide 1 applic 04/04/25 09:00 04/06/25 16:51 Triamcinolone Acet 0.1% Cream 80 Gm Tube TOPICAL 1 applic BID [facility] Administration Radiology Results: ITS Impressions Head CT 04/03/25 11:05 IMPRESSION: No evidence for acute intracranial hemorrhage or calvarial fracture. Chest X-Ray 04/03/25 13:17 IMPRESSION: Diffuse bilateral airspace disease. Findings can represent diffuse pulmonary edema versus multifocal pneumonia in appropriate clinical settings. Short-term follow-up chest radiograph is recommended after appropriate clinical therapy. Chest CT 04/03/25 15:31 IMPRESSION: Scattered areas of honeycombing, groundglass opacities, and airspace opacities are seen in both lungs. Right pleuroparenchymal thickening is also noted. Findings likely represent an infectious/inflammatory process. Clinical correlation is recommended. Short term follow-up chest radiograph is recommended after appropriate clinical therapy. Chest/Abdomen/Pelvis CT 04/05/25 16:53 IMPRESSION: CHEST: 1. Highly suggestive pneumonia in the left upper lobe. 2. Trace of right pleural effusion with adjacent atelectasis. ABDOMEN/PELVIS: 1. No evidence of intestinal obstruction seen. Focal dilatation in the area of the bowel surgery is noted. Clinical correlation and follow-up advised. 2. Bilateral fat containing inguinal hernias. Brain MRI 04/06/25 13:31 IMPRESSION: 1. Mild increased T2 signal intensity in the bilateral parieto-occipital regions suspicious for posterior reversible encephalopathy syndrome (PRES) typically presenting with headaches, seizures, encephalopathy and visual disturbance. This could result from severe hypertension, sepsis, alcohol hepatitis, hyperammonemia, drug toxicity, hemolytic uremic syndrome or thrombocytopenic thrombotic purpura. Lumbar Puncture Fluoroscopy 04/06/25 17:04 IMPRESSION: 1. Successful fluoro-guided lumbar puncture with normal opening pressure of 13 cm water. Labs Labs: Laboratory Results - last 24 hr 04/06/25 04/06/25 04/06/25 09:32 14:14 14:20 WBC 5.2 RBC 4.53 L Hgb 13.1 L Hct 39.5 L MCV 87.2 MCH 28.9 MCHC 33.2 RDW 15.4 H Plt Count 114 L MPV 10.6 H Immature Gran % (Auto) 1.2 H Neut % (Auto) 66.4 Lymph % (Auto) 13.8 L [place] % (Auto) 13.2 H Eos % (Auto) 4.8 H Baso % (Auto) 0.6 Lymph # (Auto) 0.72 L [place] # (Auto) 0.7 H Eos # (Auto) 0.3 Baso # (Auto) 0.0 Abs Immat Gran (auto) 0.06 H Absolute Neuts (auto) 3.5 Absolute Nucleated RBC 0.000 Nucleated RBC % 0.0 PT 15.7 H INR 1.3 APTT 35.4 Sodium 144 Potassium 2.7 L* Chloride 108 H Carbon Dioxide 25 Anion Gap 11 BUN 6 L Creatinine 1.21 Estim Creat Clear Calc 67 Estimated GFR > 60 Glucose 118 H POC Capillary Glucose Calcium 7.7 L CSF Source Csf CSF Appearance Clear CSF Color Colorless CSF RBC 0 CSF Tot Nucleated Cells 0 CSF Neutrophils 0 CSF Lymphocytes 50 CSF Monocytes 50 H CSF Glucose 59 Vancomycin Trough 04/06/25 04/06/25 04/06/25 15:08 18:01 22:22 WBC RBC Hgb Hct MCV MCH MCHC RDW Plt Count MPV Immature Gran % (Auto) Neut % (Auto) Lymph % (Auto) [place] % (Auto) Eos % (Auto) Baso % (Auto) Lymph # (Auto) [place] # (Auto) Eos # (Auto) Baso # (Auto) Abs Immat Gran (auto) Absolute Neuts (auto) Absolute Nucleated RBC Nucleated RBC % PT INR APTT Sodium Potassium 3.0 L Chloride Carbon Dioxide Anion Gap BUN Creatinine Estim Creat Clear Calc Estimated GFR Glucose POC Capillary Glucose 105 Calcium CSF Source CSF Appearance CSF Color CSF RBC CSF Tot Nucleated Cells CSF Neutrophils CSF Lymphocytes CSF Monocytes CSF Glucose Vancomycin Trough 22.9 H
[2025-04-07 09:14] LABS: Anion Gap 10 mmol/L (4-12); Blood Urea Nitrogen 6 mg/dL (9-20); Calcium 7.9 mg/dL (8.4-10.2); Carbon Dioxide 23 mmol/L (22-30); Chloride 111 mmol/L (98-107); Estimated CRCL calculation 54 ml/min; Estimated Glomerular Filt Rate 47; Glucose 123 mg/dL (65-110); Potassium 3.5 mmol/L (3.4-5.0); Sodium 144 mmol/L (137-145)
[2025-04-07] MEDS: ENOXAPARIN 40 MG/0.4 ML SYRINGE SUB-Q (09:44)
[2025-04-07] MEDS: ASPIRIN 81 MG ENTERIC TABLET PO (09:44)
[2025-04-07] MEDS: FOLIC ACID 1 MG/0.2 ML INJ IV PUSH (09:44)
[2025-04-07] MEDS: ATORVASTATIN 20 MG TABLET PO (09:44)
[2025-04-07] MEDS: GABAPENTIN 300 MG CAPSULE 600 MG BY MOUTH ×3 (09:44→16:46)
[2025-04-07] MEDS: PANTOPRAZOLE 40 MG TABLET PO (09:44)
[2025-04-07] MEDS: LOSARTAN POTASSIUM 100 MG TABLET PO (09:45)
[2025-04-07] MEDS: METOPROLOL TARTRATE 50 MG TAB PO ×2 (09:45→16:44)
[2025-04-07] MEDS: NICOTINE (*PBKC) 21 MG PATCH 1 PATCH TRANSDERM (09:45)
[2025-04-07] MEDS: THIAMINE HCL 200 MG/2 ML VIAL 100 MG IV PUSH (09:45)
[2025-04-07] MEDS: TRIAMCINOLONE ACET 0.1% CREAM 80 GM TUBE 1 APPLIC TOPICAL ×2 (09:46→16:44)
[2025-04-07] MEDS: MUPIROCIN 2% OINT 22 GM TUBE 1 APPLIC EACH NARE ×2 (09:46→20:06)
[2025-04-07 14:34] LABS: Toxigenic C. Diff NEGATIVE (NEGATIVE)
--- NOTE | 2025-04-07 16:59 | P.PNNEUR_ITS ---
Progress Note: A&P Assessment and Plan (1) Metabolic encephalopathy: Code(s): G93.41 - Metabolic encephalopathy Status: Acute Plan The patient was found to have pneumonia and that may have been the reason for the encephalopathy however he has improved and is back to normal according to the mother and the patient himself. MRI of the brain has raise possibility of posterior reversible encephalopathy. He did not have any seizure-like activity. Spinal tap also did not show any increase in the number white cells. I have ordered for CSF protein in case if he is not done. Viral studies will followed up. The patient and his mother Augustus that he has not abused any alcohol or drug for at least 5 years. Based upon overall evaluation I do not feel that we have a clear evidence for posterior reversible encephalopathy however I cannot rule this out. Patient might have had metabolic encephalopathy due to infection with or pneumonia and now has improved with the antibiotics treatment. Clinical follow-up is recommended at this time. Subjective Date/time seen: 04/07/25 16:59 Interval history: The patient is 64-year-old with history of alcohol and drug abuse long time ago and according to the patient and his mother he has a return back to normal state now. He was brought to the hospital with change in mental status and found to have evidence for pneumonia and thought to be the cause for the metabolic encephalopathy. MRI of the brain was performed which shows some hyper intensity in the occipital areas and the radiologist commented that this could raise possibility of a posterior reversible encephalopathy. Patient has not had any seizure-like activity. Patient's mother was present the time of the evaluation. Spinal tap was performed which shows 0 nucleated cells. CSF protein is pending. Further workup with regard to the viral studies are is also being. Review of Systems Review of Systems: Patient denies any other symptoms at this time. Exam Const: General: cooperative, well developed and alert Orientation/consciousness: oriented to person, oriented to place and oriented to time HENMT: Head: atraumatic Mouth: Yes oropharynx normal Eyes: Alignment and Position: position normal Pupils: Equal, round and reactive pupils present EOM: EOMs intact bilaterally Neck: Neck: supple Resp: Effort & Inspection: normal respiratory effort Skin: General skin exam: normal color Neuro: General: oriented to person, oriented to place, oriented to time, patient oriented x3 and Unable to assess gait Cranial nerves: Yes CN's II-XII intact bilaterally, Yes facial sensation intact/muscles of mastication intact, Yes Equal, round and reactive pupils present, Yes Bilaterally intact EOM present, Yes Nystagmus not present, Yes facial symmetry, Yes Midline tongue present, Yes Symmetric palate elevation present and Yes Ability to bilaterally elevate shoulders present Cognition (Neuro): normal cognition Speech: normal speech Motor exam (neuro): 5/5 motor strength present throughout and Motor abnormalities not present Sensory Exam: normal sensation Coordination: [id number] test normal and Normal rapid alternating movements of the distal upper extremity present (Neuro) Objective Data Vital Signs Vital Signs: Vital Signs - 24 hr 04/06/25 17:59 04/06/25 20:00 04/06/25 20:15 Temperature Pulse Rate 107 H 82 Pulse Rate [Bilateral Pedal (Dorsalis Pedis) Palpation] Respiratory Rate 20 Blood Pressure 167/99 H Pulse Oximetry 96 Oxygen Delivery Room Air Fraction of Inspired Oxygen 21 04/06/25 21:36 04/06/25 22:00 04/07/25 00:00 Temperature 97.1 F L Pulse Rate 117 H 122 H Pulse Rate [Bilateral Pedal (Dorsalis Pedis) Palpation] Respiratory Rate 18 Blood Pressure 177/80 H Pulse Oximetry 97 100 Oxygen Delivery Room Air Fraction of Inspired Oxygen 04/07/25 04:00 04/07/25 06:00 04/07/25 08:00 Temperature 98.2 F Pulse Rate 97 110 H Pulse Rate [Bilateral Pedal (Dorsalis Pedis) Palpation] Respiratory Rate 18 Blood Pressure 148/71 H 142/69 H Pulse Oximetry 98 Oxygen Delivery Fraction of Inspired Oxygen 04/07/25 08:00 04/07/25 08:00 04/07/25 09:45 Temperature Pulse Rate 119 H 107 H Pulse Rate [Bilateral Pedal (Dorsalis Pedis) Palpation] Respiratory Rate Blood Pressure Pulse Oximetry 98 Oxygen Delivery Room Air Fraction of Inspired Oxygen 04/07/25 12:00 04/07/25 12:00 04/07/25 14:00 Temperature 97.9 F Pulse Rate 90 88 Pulse Rate [Bilateral Pedal (Dorsalis Pedis) Palpation] 86 Respiratory Rate 16 Blood Pressure 154/88 H 121/63 Pulse Oximetry 98 Oxygen Delivery Fraction of Inspired Oxygen 04/07/25 16:00 04/07/25 16:44 Temperature Pulse Rate 99 Pulse Rate [Bilateral Pedal (Dorsalis Pedis) Palpation] 86 Respiratory Rate Blood Pressure Pulse Oximetry Oxygen Delivery Fraction of Inspired Oxygen Intake/Output Intake/Output: Intake & Output 04/04/25 04/05/25 04/06/25 04/07/25 23:59 23:59 23:59 23:59 Intake Total 3465.1 3508.3231 2180 2223.8 Output Total 1750 1400 2400 4850 Balance 1715.1 2108.3231 -220 -2626.2 Meds/Results Medications: Active Medications Generic Name Dose Route Start Last Admin Trade Name Freq PRN Reason Stop Dose Admin Acetaminophen 650 mg 04/03/25 18:24 04/05/25 17:15 Acetaminophen 650 Mg Suppository RECTAL 650 mg Q6H PRN Administration Mild Pain (1-3) or Fever Amoxicillin/Clavulanate Potassium 1 tablet 04/07/25 21:00 Amoxicillin/Clavulanate K 875-125 Mg Tab PO Q12HR [facility] Aspirin 81 mg 04/04/25 09:55 04/07/25 09:44 Aspirin 81 Mg Enteric Tablet PO 81 mg QAM [facility] Administration Atorvastatin Calcium 20 mg 04/05/25 09:00 04/07/25 09:44 Atorvastatin 20 Mg Tablet PO 20 mg DAILY [facility] Administration Doxycycline Hyclate 100 mg 04/07/25 18:00 Doxycycline Hyclate 100 Mg Tablet PO Q12H [facility] Enoxaparin Sodium 40 mg 04/04/25 09:00 04/07/25 09:44 Enoxaparin 40 Mg/0.4 Ml Syringe SUB-Q 40 mg DAILY [facility] Administration Folic Acid 1 mg 04/04/25 11:15 04/07/25 09:44 Folic Acid 1 Mg/0.2 Ml Inj IV PUSH 1 mg QAM [facility] Administration Gabapentin 600 mg 04/04/25 17:00 04/07/25 16:46 Gabapentin 300 Mg Capsule BY MOUTH 600 mg TID [facility] Administration Hydralazine HCl 10 mg 04/03/25 18:25 04/06/25 16:51 Hydralazine Hcl 20 Mg/Ml Vial IV PUSH 10 mg Q8H PRN Administration Blood Pressure - >180/90 Dextrose/Sodium Chloride 1,000 mls @ 75 mls/hr 04/04/25 11:20 04/07/25 07:33 Dextrose 5% Sodium Chloride 0.9% IV CONT 75 mls/hr .[id number] [facility] Administration Lorazepam 1 mg 04/05/25 06:30 04/06/25 23:08 Lorazepam Inj (*Crx) 2 Mg/Ml Vial IV PUSH 1 mg Q6H PRN Administration Anxiety Losartan Potassium 100 mg 04/04/25 10:55 04/07/25 09:45 Losartan Potassium 100 Mg Tablet PO 100 mg DAILY [facility] Administration Metoprolol Tartrate 50 mg 04/04/25 17:00 04/07/25 16:44 Metoprolol Tartrate 50 Mg Tab PO 50 mg BID [facility] Administration Mupirocin 1 applic 04/03/25 21:00 04/07/25 09:46 Mupirocin 2% Oint 22 Gm Tube EACH NARE 04/08/25 09:01 1 applic Q12HR [facility] Administration Nicotine 1 patch 04/06/25 09:00 04/07/25 09:45 Nicotine (*Pbkc) 21 Mg Patch TRANSDERM 1 patch DAILY [facility] Administration Ondansetron HCl 4 mg 04/03/25 18:24 Ondansetron Inj 4 Mg/2 Ml Vial IV PUSH Q6H PRN Nausea And Vomiting Pantoprazole Sodium 40 mg 04/04/25 09:00 04/07/25 09:44 Pantoprazole 40 Mg Tablet PO 40 mg QAM [facility] Administration Thiamine HCl 100 mg 04/04/25 11:20 04/07/25 09:45 Thiamine Hcl 200 Mg/2 Ml Vial IV PUSH 100 mg QAM [facility] Administration Triamcinolone Acetonide 1 applic 04/04/25 09:00 04/07/25 16:44 Triamcinolone Acet 0.1% Cream 80 Gm Tube TOPICAL 1 applic BID [facility] Administration Radiology Results: ITS Impressions Head CT 04/03/25 11:05 IMPRESSION: No evidence for acute intracranial hemorrhage or calvarial fracture. Chest X-Ray 04/03/25 13:17 IMPRESSION: Diffuse bilateral airspace disease. Findings can represent diffuse pulmonary edema versus multifocal pneumonia in appropriate clinical settings. Short-term follow-up chest radiograph is recommended after appropriate clinical therapy. Chest CT 04/03/25 15:31 IMPRESSION: Scattered areas of honeycombing, groundglass opacities, and airspace opacities are seen in both lungs. Right pleuroparenchymal thickening is also noted. Findings likely represent an infectious/inflammatory process. Clinical correlation is recommended. Short term follow-up chest radiograph is recommended after appropriate clinical therapy. Chest/Abdomen/Pelvis CT 04/05/25 16:53 IMPRESSION: CHEST: 1. Highly suggestive pneumonia in the left upper lobe. 2. Trace of right pleural effusion with adjacent atelectasis. ABDOMEN/PELVIS: 1. No evidence of intestinal obstruction seen. Focal dilatation in the area of the bowel surgery is noted. Clinical correlation and follow-up advised. 2. Bilateral fat containing inguinal hernias. Brain MRI 04/06/25 13:31 IMPRESSION: 1. Mild increased T2 signal intensity in the bilateral parieto-occipital regions suspicious for posterior reversible encephalopathy syndrome (PRES) typically presenting with headaches, seizures, encephalopathy and visual disturbance. This could result from severe hypertension, sepsis, alcohol hepatitis, hyperammo nemia, drug toxicity, hemolytic uremic syndrome or thrombocytopenic thrombotic purpura. Lumbar Puncture Fluoroscopy 04/06/25 17:04 IMPRESSION: 1. Successful fluoro-guided lumbar puncture with normal opening pressure of 13 cm water. Labs Labs: Laboratory Results - last 24 hr 04/06/25 04/06/25 04/06/25 14:20 18:01 22:22 WBC RBC Hgb Hct MCV MCH MCHC RDW Plt Count MPV Immature Gran % (Auto) Neut % (Auto) Lymph % (Auto) [place] % (Auto) Eos % (Auto) Baso % (Auto) Lymph # (Auto) [place] # (Auto) Eos # (Auto) Baso # (Auto) Abs Immat Gran (auto) Absolute Neuts (auto) Absolute Nucleated RBC Nucleated RBC % Sodium Potassium 3.0 L Chloride Carbon Dioxide Anion Gap BUN Creatinine Estim Creat Clear Calc Estimated GFR Glucose POC Capillary Glucose 105 Calcium CSF Source Csf CSF Appearance Clear CSF Color Colorless CSF RBC 0 CSF Tot Nucleated Cells 0 CSF Neutrophils 0 CSF Lymphocytes 50 CSF Monocytes 50 H C. difficile (PCR) 04/07/25 04/07/25 04/07/25 08:33 12:07 12:17 WBC 5.8 RBC 4.10 L Hgb 11.8 L Hct 36.2 L MCV 88.3 MCH 28.8 MCHC 32.6 RDW 15.6 H Plt Count 130 L MPV 11.2 H Immature Gran % (Auto) 1.0 H Neut % (Auto) 65.8 Lymph % (Auto) 14.2 L [place] % (Auto) 14.8 H Eos % (Auto) 4.0 Baso % (Auto) 0.2 Lymph # (Auto) 0.82 L [place] # (Auto) 0.9 H Eos # (Auto) 0.2 Baso # (Auto) 0.0 Abs Immat Gran (auto) 0.06 H Absolute Neuts (auto) 3.8 Absolute Nucleated RBC 0.000 Nucleated RBC % 0.0 Sodium 144 Potassium 3.5 Chloride 111 H Carbon Dioxide 23 Anion Gap 10 BUN 6 L Creatinine 1.51 H Estim Creat Clear Calc 54 Estimated GFR 47 L Glucose 123 H POC Capillary Glucose 267 H Calcium 7.9 L CSF Source CSF Appearance CSF Color CSF RBC CSF Tot Nucleated Cells CSF Neutrophils CSF Lymphocytes CSF Monocytes C. difficile (PCR) Negative
[2025-04-07] MEDS: DOXYCYCLINE HYCLATE 100 MG TABLET PO (19:33)
[2025-04-07] MEDS: LOPERAMIDE HCL 2 MG CAPSULE 4 MG PO (20:06)
[2025-04-07] MEDS: LORazepam INJ (*CRX) 2 MG/ML VIAL 1 MG IV PUSH (20:07)
[2025-04-08] VITALS (12 sets, daily range): BP systolic 142–185; BP diastolic 77–88; PULSE 74–97; RESP 16–20; TEMP 36.1–36.8; O2SAT 100
[2025-04-08] MEDS: LORazepam INJ (*CRX) 2 MG/ML VIAL 1 MG IV PUSH ×3 (01:47→16:31)
[2025-04-08] MEDS: DOXYCYCLINE HYCLATE 100 MG TABLET PO ×2 (05:37→17:55)
--- NOTE | 2025-04-08 08:17 | P.PNIM_ITS ---
Progress Note: A&P Assessment and Plan (1) Altered mental status: Qualifiers: Altered mental status type: unspecified Qualified Code(s): R41.82 - Altered mental status, unspecified Code(s): R41.82 - Altered mental status, unspecified Status: Acute Plan 64 y/o M with PMH of COPD, ADD, hypertension, hyperlipidemia, anxiety, drug abuse on Suboxone, and alcohol abuse presents here with altered mental status. Altered mental status: Qualifiers: Altered mental status type: unspecified Qualified Code(s): R41.82 - Altered mental status, unspecified Code(s): R41.82 - Altered mental status, unspecified Status: Acute Assessment and Plan: confused, some difficulty with swallowing and choking episodes. Head CT was unremarkable. UDS and ethanol were negative. viral PCR negative. UA showed no indicators of infection. pending MRI. Neurology has been consulted. Need to rule out on latest seizure History of alcohol abuse Start thiamine folic acid IV 04/04 BCX 04/03/25 showed no growth. pt is restless, MRI can't be performed I discussed the case with neurologist Edvin, he agreed to proceed LP today and he would alberto EEG and recommended to hold antiviral med now 04/05 Pending CSF culture, viral studies, Gram stain, and chemical analysis Patient became alert oriented today. Brain MRI showed mild increased T2 signal intensity in the bilateral parieto-occipital regions suspicious for posterior reversible encephalopathy syndrome (PRES) typically presenting with headaches, seizures, encephalopathy and visual disturbance. This could result from severe hypertension, sepsis, alcohol hepatitis, hyperammonemia, drug toxicity, hemolytic uremic syndrome or thrombocytopenic thrombotic purpura. CSF clear lymphocyte 50%, right blood cells 0 Appreciate neurologist improved, consider possible metabolic encephalopathy due to infection Sepsis: Code(s): A41.9 - Sepsis, unspecified organism Status: Acute Assessment and Plan: - meets SIRS criteria: HR >90, RR >20. - lactic acid: 0.8 - 30 mL/kg = 3L, given 2L bolus. Will give third L at 100 mL/hr x1 - suspected source: Multifocal pneumonia - started on azithromycin, ceftriaxone, and vancomycin. Upon further evaluation of HPI, some concern for choking and dysphagia. Will cover for aspiration pneumonia and exchanged to Zosyn and continue vancomycin as the patient's MRSA is positive. - blood cultures drawn on 04/03 - UA: 2+ protein, 2+ ketones - monitor hemodynamic stability Multifocal pneumonia: Code(s): J18.8 - Other pneumonia, unspecified organism Status: Acute Assessment and Plan: CXR: Diffuse bilateral airspace disease. Findings can represent diffuse pulmonary edema versus multifocal pneumonia in appropriate clinical settings. Short-term follow-up chest radiograph is recommended after appropriate clinical therapy. - Chest CT: Scattered areas of honeycombing, groundglass opacities, and airspace opacities are seen in both lungs. Right pleuroparenchymal thickening is also noted. Findings likely represent an infectious/inflammatory process. possible aspiration, sepsis - started on Zosyn and Vancomycin on 04/03 - MRSA PCR + on 04/03, bactroban ordered - Viral PCR negative changed to vancomycin and ceftriaxone, discontinued Zosyn 04/06. CSF analysis does not suggest bacterial infection. change to doxycycline p.o. Augmentin p.o. 04/06 Diarrhea Follow-up C diff negative Resolved today Sepsis had fever 100.4 yesterday No growth from blood culture Follow-up CT chest abdomen pelvis 04/05 Highly suggestive pneumonia in the left upper lobe. No evidence of intestinal obstruction seen. Focal dilatation in the area of the bowel surgery is noted. Clinical correlation and follow-up advised. Hypertension urgency Code(s): I10 - Essential (primary) hypertension Status: Chronic Assessment and Plan: Continue losartan 100 mg daily p.o., metoprolol 50 mg b.i.d. p.o. dehydration Received d5 normal saline IV 125 mL/hour Appetite improving, dehydration corrected Discontinue IV fluid Continue PT OT, follow-up recommendation regarding discharge plan Subjective Date/time seen: 04/08/25 08:17 Interval history: I saw examined patient today in presents of patient's mother. Patient is alert oriented x3, feels tired, denies headache, chest pain. Patient feels exercise tolerance is increasing, appetite improving, Exam Narrative: GENERAL: ill-appearing, in no acute distress. Well-nourished. - EYES: EOMI. Anicteric. - HENT: dry mucous membranes. - LUNGS: Clear to auscultation bilateral ly, no wheezing, rhonchi, or rales. - CARDIOVASCULAR: Regular rate and rhyth m. No murmur. No JVD. - ABDOMEN: Soft, non-tender and non-dist ended. No palpable masses. - EXTREMITIES: No edema. Peripheral puls es 2+. Non-tender. - NEUROLOGIC: No focal neurological defi cits. CN II-XII grossly intact. - PSYCHIATRIC: Awake, alert and oriented x 3. Drowsy mood and affect. - SKIN: No rashes or lesions. Warm. - LYMPH: No cervical lymphadenopathy. Objective Data Vital Signs Vital Signs: Vital Signs - 24 hr 04/07/25 09:45 04/07/25 12:00 04/07/25 12:00 Temperature Pulse Rate 107 H 90 Pulse Rate [Bilateral Pedal (Dorsalis Pedis) Palpation] 86 Respiratory Rate Blood Pressure 154/88 H Pulse Oximetry Oxygen Delivery Fraction of Inspired Oxygen 04/07/25 14:00 04/07/25 16:00 04/07/25 16:00 Temperature 97.9 F Pulse Rate 88 98 Pulse Rate [Bilateral Pedal (Dorsalis Pedis) Palpation] 86 Respiratory Rate 16 Blood Pressure 121/63 Pulse Oximetry 98 Oxygen Delivery Fraction of Inspired Oxygen 04/07/25 16:44 04/07/25 20:00 04/07/25 20:00 Temperature Pulse Rate 99 88 97 Pulse Rate [Bilateral Pedal (Dorsalis Pedis) Palpation] Respiratory Rate 20 Blood Pressure Pulse Oximetry 96 Oxygen Delivery Room Air Fraction of Inspired Oxygen 21 04/07/25 20:01 04/07/25 22:00 04/08/25 00:00 Temperature 97.8 F Pulse Rate 88 92 84 Pulse Rate [Bilateral Pedal (Dorsalis Pedis) Palpation] Respiratory Rate 20 16 Blood Pressure 182/71 H Pulse Oximetry 96 98 Oxygen Delivery Room Air Fraction of Inspired Oxygen 04/08/25 04:00 04/08/25 06:00 Temperature 96.9 F L Pulse Rate 82 96 Pulse Rate [Bilateral Pedal (Dorsalis Pedis) Palpation] Respiratory Rate 20 Blood Pressure 153/77 H Pulse Oximetry 100 Oxygen Delivery Fraction of Inspired Oxygen Intake/Output Intake/Output: Intake & Output 04/05/25 04/06/25 04/07/25 04/08/25 23:59 23:59 23:59 23:59 Intake Total 3508.3231 2180 2463.8 550 Output Total 1400 2400 4850 4000 Balance 2108.3231 -220 -2386.2 -8060 Meds/Results Medications: Active Medications Generic Name Dose Route Start Last Admin Trade Name Freq PRN Reason Stop Dose Admin Acetaminophen 650 mg 04/03/25 18:24 04/05/25 17:15 Acetaminophen 650 Mg Suppository RECTAL 650 mg Q6H PRN Administration Mild Pain (1-3) or Fever Amoxicillin/Clavulanate Potassium 1 tablet 04/07/25 21:00 04/07/25 20:06 Amoxicillin/Clavulanate K 875-125 Mg Tab PO 1 tablet Q12HR HUNG Administration Aspirin 81 mg 04/04/25 09:55 04/07/25 09:44 Aspirin 81 Mg Enteric Tablet PO 81 mg QAM HUNG Administration Atorvastatin Calcium 20 mg 04/05/25 09:00 04/07/25 09:44 Atorvastatin 20 Mg Tablet PO 20 mg DAILY HUNG Administration Doxycycline Hyclate 100 mg 04/07/25 18:00 04/08/25 05:37 Doxycycline Hyclate 100 Mg Tablet PO 100 mg Q12H HUNG Administration Enoxaparin Sodium 40 mg 04/04/25 09:00 04/07/25 09:44 Enoxaparin 40 Mg/0.4 Ml Syringe SUB-Q 40 mg DAILY HUNG Administration Folic Acid 1 mg 04/04/25 11:15 04/07/25 09:44 Folic Acid 1 Mg/0.2 Ml Inj IV PUSH 1 mg QAM HUNG Administration Gabapentin 600 mg 04/04/25 17:00 04/07/25 16:46 Gabapentin 300 Mg Capsule BY MOUTH 600 mg TID HUNG Administration Hydralazine HCl 10 mg 04/03/25 18:25 04/06/25 16:51 Hydralazine Hcl 20 Mg/Ml Vial IV PUSH 10 mg Q8H PRN Administration Blood Pressure - >180/90 Lorazepam 1 mg 04/05/25 06:30 04/08/25 01:47 Lorazepam Inj (*Crx) 2 Mg/Ml Vial IV PUSH 1 mg Q6H PRN Administration Anxiety Losartan Potassium 100 mg 04/04/25 10:55 04/07/25 09:45 Losartan Potassium 100 Mg Tablet PO 100 mg DAILY HUNG Administration Metoprolol Tartrate 50 mg 04/04/25 17:00 04/07/25 16:44 Metoprolol Tartrate 50 Mg Tab PO 50 mg BID HUNG Administration Mupirocin 1 applic 04/03/25 21:00 04/07/25 20:06 Mupirocin 2% Oint 22 Gm Tube EACH NARE 04/08/25 09:01 1 applic Q12HR HUNG Administration Nicotine 1 patch 04/06/25 09:00 04/07/25 09:45 Nicotine (*[facility]) 21 Mg Patch TRANSDERM 1 patch DAILY HUNG Administration Ondansetron HCl 4 mg 04/03/25 18:24 Ondansetron Inj 4 Mg/2 Ml Vial IV PUSH Q6H PRN Nausea And Vomiting Pantoprazole Sodium 40 mg 04/04/25 09:00 04/07/25 09:44 Pantoprazole 40 Mg Tablet PO 40 mg QAM HUNG Administration Thiamine HCl 100 mg 04/04/25 11:20 04/07/25 09:45 Thiamine Hcl 200 Mg/2 Ml Vial IV PUSH 100 mg QAM HUNG Administration Triamcinolone Acetonide 1 applic 04/04/25 09:00 04/07/25 16:44 Triamcinolone Acet 0.1% Cream 80 Gm Tube TOPICAL 1 applic BID HUNG Administration Radiology Results: ITS Impressions Head CT 04/03/25 11:05 IMPRESSION: No evidence for acute intracranial hemorrhage or calvarial fracture. Chest X-Ray 04/03/25 13:17 IMPRESSION: Diffuse bilateral airspace disease. Findings can represent diffuse pulmonary edema versus multifocal pneumonia in appropriate clinical settings. Short-term follow-up chest radiograph is recommended after appropriate clinical therapy. Chest CT 04/03/25 15:31 IMPRESSION: Scattered areas of honeycombing, groundglass opacities, and airspace opacities are seen in both lungs. Right pleuroparenchymal thickening is also noted. Findings likely represent an infectious/inflammatory process. Clinical correlation is recommended. Short term follow-up chest radiograph is recommended after appropriate clinical therapy. Chest/Abdomen/Pelvis CT 04/05/25 16:53 IMPRESSION: CHEST: 1. Highly suggestive pneumonia in the left upper lobe. 2. Trace of right pleural effusion with adjacent atelectasis. ABDOMEN/PELVIS: 1. No evidence of intestinal obstruction seen. Focal dilatation in the area of the bowel surgery is noted. Clinical correlation and follow-up advised. 2. Bilateral fat containing inguinal hernias. Brain MRI 04/06/25 13:31 IMPRESSION: 1. Mild increased T2 signal intensity in the bilateral parieto-occipital regions suspicious for posterior reversible encephalopathy syndrome (PRES) typically presenting with headaches, seizures, encephalopathy and visual disturbance. This could result from severe hypertension, sepsis, alcohol hepatitis, hyperammonemia, drug toxicity, hemolytic uremic syndrome or thrombocytopenic thrombotic purpura. Lumbar Puncture Fluoroscopy 04/06/25 17:04 IMPRESSION: 1. Successful fluoro-guided lumbar puncture with normal opening pressure of 13 cm water. Labs Labs: Laboratory Results - last 24 hr 04/07/25 04/07/25 04/07/25 08:33 12:07 12:17 WBC 5.8 RBC 4.10 L Hgb 11.8 L Hct 36.2 L MCV 88.3 MCH 28.8 MCHC 32.6 RDW 15.6 H Plt Count 130 L MPV 11.2 H Immature Gran % (Auto) 1.0 H Neut % (Auto) 65.8 Lymph % (Auto) 14.2 L [place] % (Auto) 14.8 H Eos % (Auto) 4.0 Baso % (Auto) 0.2 Lymph # (Auto) 0.82 L [place] # (Auto) 0.9 H Eos # (Auto) 0.2 Baso # (Auto) 0.0 Abs Immat Gran (auto) 0.06 H Absolute Neuts (auto) 3.8 Absolute Nucleated RBC 0.000 Nucleated RBC % 0.0 Sodium 144 Potassium 3.5 Chloride 111 H Carbon Dioxide 23 Anion Gap 10 BUN 6 L Creatinine 1.51 H Estim Creat Clear Calc 54 Estimated GFR 47 L Glucose 123 H POC Capillary Glucose 267 H Calcium 7.9 L C. difficile (PCR) Negative 04/07/25 18:42 WBC RBC Hgb Hct MCV MCH MCHC RDW Plt Count MPV Immature Gran % (Auto) Neut % (Auto) Lymph % (Auto) [place] % (Auto) Eos % (Auto) Baso % (Auto) Lymph # (Auto) [place] # (Auto) Eos # (Auto) Baso # (Auto) Abs Immat Gran (auto) Absolute Neuts (auto) Absolute Nucleated RBC Nucleated RBC % Sodium Potassium Chloride Carbon Dioxide Anion Gap BUN Creatinine Estim Creat Clear Calc Estimated GFR Glucose POC Capillary Glucose 112 H Calcium C. difficile (PCR)
[2025-04-08] MEDS: ASPIRIN 81 MG ENTERIC TABLET PO (09:36)
[2025-04-08] MEDS: ATORVASTATIN 20 MG TABLET PO (09:36)
[2025-04-08] MEDS: METOPROLOL TARTRATE 50 MG TAB PO ×2 (09:37→16:28)
[2025-04-08] MEDS: GABAPENTIN 300 MG CAPSULE 600 MG BY MOUTH ×3 (09:37→16:28)
[2025-04-08] MEDS: ENOXAPARIN 40 MG/0.4 ML SYRINGE SUB-Q (09:37)
[2025-04-08] MEDS: LOSARTAN POTASSIUM 100 MG TABLET PO (09:37)
[2025-04-08] MEDS: FOLIC ACID 1 MG/0.2 ML INJ IV PUSH (09:38)
[2025-04-08] MEDS: PANTOPRAZOLE 40 MG TABLET PO (09:38)
[2025-04-08] MEDS: MUPIROCIN 2% OINT 22 GM TUBE 1 APPLIC EACH NARE (09:38)
[2025-04-08] MEDS: THIAMINE HCL 200 MG/2 ML VIAL 100 MG IV PUSH (09:38)
[2025-04-08] MEDS: TRIAMCINOLONE ACET 0.1% CREAM 80 GM TUBE 1 APPLIC TOPICAL ×2 (09:40→16:29)
[2025-04-08 10:05] LABS: Hematocrit 35.3 % (42.0-52.0); Hemoglobin 11.6 g/dL (14.0-18.0); Immature Granulocyte Percent A 0.9 % (0-0.5); Lymphocytes Absolute Auto 0.83 K/mm3 (0.9-3.2); Mean Corpuscular HGB Conc 32.9 g/dl (32-36); Mean Corpuscular Hemoglobin 28.9 pg (26-34); Mean Corpuscular Volume 88.0 fl (80-100); Nucleated Red Blood Cells Absolute Auto 0.000 K/mm3 (0.0-0.012); Nucleated Red Blood Cells Perc 0.0 % (0.0-0.2); Platelet Count Result 136 k/mm3 (150-375); Red Blood Count 4.01 M/mm3 (4.6-6.20); White Blood Count 4.6 K/mm3 (4.5-10.0)
[2025-04-08 10:24] LABS: Anion Gap 12 mmol/L (4-12); Blood Urea Nitrogen 6 mg/dL (9-20); Calcium 7.6 mg/dL (8.4-10.2); Carbon Dioxide 18 mmol/L (22-30); Chloride 110 mmol/L (98-107); Estimated CRCL calculation 57 ml/min; Estimated Glomerular Filt Rate 50; Glucose 194 mg/dL (65-110); Potassium 3.0 mmol/L (3.4-5.0); Sodium 140 mmol/L (137-145)
[2025-04-08] MEDS: LOPERAMIDE HCL 2 MG CAPSULE 4 MG PO (18:28)
[2025-04-09 00:03] VITALS: PULSE 90
[2025-04-09 04:00] VITALS: PULSE 92
[2025-04-09 04:33] VITALS: BP 170/78; PULSE 65; RESP 18; TEMP 36.4; O2SAT 100
[2025-04-09] MEDS: DOXYCYCLINE HYCLATE 100 MG TABLET PO (06:08)
[2025-04-09 06:56] LABS: Anion Gap 15 mmol/L (4-12); Blood Urea Nitrogen 10 mg/dL (9-20); Calcium 7.8 mg/dL (8.4-10.2); Carbon Dioxide 17 mmol/L (22-30); Chloride 111 mmol/L (98-107); Estimated CRCL calculation 56 ml/min; Estimated Glomerular Filt Rate 48; Glucose 150 mg/dL (65-110); Potassium 3.4 mmol/L (3.4-5.0); Sodium 143 mmol/L (137-145)
[2025-04-09 08:27] LABS: Hematocrit 39.3 % (42.0-52.0); Hemoglobin 12.8 g/dL (14.0-18.0); Immature Granulocyte Percent A 1.0 % (0-0.5); Lymphocytes Absolute Auto 1.34 K/mm3 (0.9-3.2); Mean Corpuscular HGB Conc 32.6 g/dl (32-36); Mean Corpuscular Hemoglobin 28.9 pg (26-34); Mean Corpuscular Volume 88.7 fl (80-100); Nucleated Red Blood Cells Absolute Auto 0.000 K/mm3 (0.0-0.012); Nucleated Red Blood Cells Perc 0.0 % (0.0-0.2); Platelet Count Result 182 k/mm3 (150-375); Red Blood Count 4.43 M/mm3 (4.6-6.20); White Blood Count 7.2 K/mm3 (4.5-10.0)
[2025-04-09 09:40] VITALS: BP 144/79; PULSE 68; RESP 16; TEMP 36.7; O2SAT 98
[2025-04-09 09:42] VITALS: PULSE 68; O2SAT 98
[2025-04-09] MEDS: LOSARTAN POTASSIUM 100 MG TABLET PO (09:42)
[2025-04-09] MEDS: ASPIRIN 81 MG ENTERIC TABLET PO (09:42)
[2025-04-09] MEDS: GABAPENTIN 300 MG CAPSULE 600 MG BY MOUTH (09:42)
[2025-04-09] MEDS: METOPROLOL TARTRATE 50 MG TAB PO (09:42)
[2025-04-09] MEDS: ATORVASTATIN 20 MG TABLET PO (09:42)
[2025-04-09] MEDS: PANTOPRAZOLE 40 MG TABLET PO (09:42)
[2025-04-09] MEDS: THIAMINE HCL 200 MG/2 ML VIAL 100 MG IV PUSH (09:43)
[2025-04-09] MEDS: ENOXAPARIN 40 MG/0.4 ML SYRINGE SUB-Q (09:44)
[2025-04-09] MEDS: FOLIC ACID 1 MG/0.2 ML INJ IV PUSH (09:44)
[2025-04-09] MEDS: LORazepam INJ (*CRX) 2 MG/ML VIAL 1 MG IV PUSH (09:48)
--- NOTE | 2025-04-09 10:22 | PM.IMPN ---
Progress Note: A&P Assessment and Plan (1) Altered mental status: Qualifiers: Altered mental status type: unspecified Qualified Code(s): R41.82 - Altered mental status, unspecified Code(s): R41.82 - Altered mental status, unspecified Status: Acute Plan 64 y/o M with PMH of COPD, ADD, hypertension, hyperlipidemia, anxiety, drug abuse on Suboxone, and alcohol abuse presents here with altered mental status. Altered mental status: Qualifiers: Altered mental status type: unspecified Qualified Code(s): R41.82 - Altered mental status, unspecified Code(s): R41.82 - Altered mental status, unspecified Status: Acute Assessment and Plan: confused, some difficulty with swallowing and choking episodes. Head CT was unremarkable. UDS and ethanol were negative. viral PCR negative. UA showed no indicators of infection. pending MRI. Neurology has been consulted. Need to rule out on latest seizure History of alcohol abuse Start thiamine folic acid IV 04/04 BCX 04/03/25 showed no growth. pt is restless, MRI can't be performed I discussed the case with neurologist Edvin, he agreed to proceed LP today and he would alberto EEG and recommended to hold antiviral med now 04/05 Pending CSF culture, viral studies, Gram stain, and chemical analysis Patient became alert oriented today. Brain MRI showed mild increased T2 signal intensity in the bilateral parieto-occipital regions suspicious for posterior reversible encephalopathy syndrome (PRES) typically presenting with headaches, seizures, encephalopathy and visual disturbance. This could result from severe hypertension, sepsis, alcohol hepatitis, hyperammonemia, drug toxicity, hemolytic uremic syndrome or thrombocytopenic thrombotic purpura. CSF clear lymphocyte 50%, right blood cells 0 Appreciate neurologist improved, consider possible metabolic encephalopathy due to infection Sepsis: Code(s): A41.9 - Sepsis, unspecified organism Status: Acute Assessment and Plan: - meets SIRS criteria: HR >90, RR >20. - lactic acid: 0.8 - 30 mL/kg = 3L, given 2L bolus. Will give third L at 100 mL/hr x1 - suspected source: Multifocal pneumonia - started on azithromycin, ceftriaxone, and vancomycin. Upon further evaluation of HPI, some concern for choking and dysphagia. cover for aspiration pneumonia and exchanged to Zosyn received vancomycin as the patient's MRSA is positive. - blood cultures drawn on 04/03 no growth - UA: 2+ protein, 2+ ketones - monitor hemodynamic stability change to doxycycline p.o. Augmentin p.o. 04/06 Patient completed antibiotics treatment today Multifocal pneumonia: Code(s): J18.8 - Other pneumonia, unspecified organism Status: Acute Assessment and Plan: CXR: Diffuse bilateral airspace disease. Findings can represent diffuse pulmonary edema versus multifocal pneumonia in appropriate clinical settings. Short-term follow-up chest radiograph is recommended after appropriate clinical therapy. - Chest CT: Scattered areas of honeycombing, groundglass opacities, and airspace opacities are seen in both lungs. Right pleuroparenchymal thickening is also noted. Findings likely represent an infectious/inflammatory process. possible aspiration, sepsis - started on Zosyn and Vancomycin on 04/03 - MRSA PCR + on 04/03, - Viral PCR negative changed to vancomycin and ceftriaxone, discontinued Zosyn 04/06. CSF analysis does not suggest bacterial infection. change to doxycycline p.o. Augmentin p.o. 04/06 Complete antibiotics treatment today Diarrhea Follow-up C diff negative Resolved today Hypertension urgency Code(s): I10 - Essential (primary) hypertension Status: Chronic Assessment and Plan: Continue losartan 100 mg daily p.o., metoprolol 50 mg b.i.d. p.o. Blood pressure controlled dehydration Received d5 normal saline IV 125 mL/hour Appetite improving, dehydration corrected Discontinue IV fluid Continue PT OT, follow-up recommendation regarding discharge plan Subjective Date/time seen: 04/09/25 10:22 Interval history: No new issue even over the night Exam Narrative: GENERAL: ill-appearing, in no acute distress. Well-nourished. - EYES: EOMI. Anicteric. - HENT: dry mucous membranes. - LUNGS: Clear to auscultation bilaterally, no wheezing, rhonchi, or rales. - CARDIOVASCULAR: Regular rate and rhythm. No murmur. No JVD. - ABDOMEN: Soft, non-tender and non-distended. No palpable masses. - EXTREMITIES: No edema. Peripheral pulses 2+. Non-tender. - NEUROLOGIC: No focal neurological deficits. CN II-XII grossly intact. - PSYCHIATRIC: Awake, alert and oriented x 3. Drowsy mood and affect. - SKIN: No rashes or lesions. Warm. - LYMPH: No cervical lymphadenopathy. Objective Data Vital Signs Vital Signs: Vital Signs - 24 hr 04/08/25 12:00 04/08/25 14:00 04/08/25 16:00 Temperature 98.2 F Pulse Rate 89 82 86 Respiratory Rate 18 Blood Pressure 157/80 H Pulse Oximetry 100 Oxygen Delivery Fraction of Inspired Oxygen 04/08/25 16:28 04/08/25 20:01 04/08/25 20:30 Temperature Pulse Rate 87 80 74 Respiratory Rate 16 Blood Pressure Pulse Oximetry 100 Oxygen Delivery Room Air Fraction of Inspired Oxygen 04/08/25 21:07 04/09/25 00:03 04/09/25 04:00 Temperature 97.7 F Pulse Rate 74 90 92 Respiratory Rate 16 Blood Pressure 185/88 H Pulse Oximetry 100 Oxygen Delivery Fraction of Inspired Oxygen 04/09/25 04:33 04/09/25 09:40 04/09/25 09:42 Temperature 97.6 F 98.1 F Pulse Rate 65 68 68 Respiratory Rate 18 16 Blood Pressure 170/78 H 144/79 H Pulse Oximetry 100 98 Oxygen Delivery Fraction of Inspired Oxygen Intake/Output Intake/Output: Intake & Output 04/06/25 04/07/25 04/08/25 04/09/25 23:59 23:59 23:59 23:59 Intake Total 2180 2463.8 3890 740 Output Total 2400 4850 4000 Balance -220 -2386.2 -110 740 Meds/Results Medications: Active Medications Generic Name Dose Route Start Last Admin Trade Name Freq PRN Reason Stop Dose Admin Acetaminophen 650 mg 04/03/25 18:24 04/05/25 17:15 Acetaminophen 650 Mg Suppository RECTAL 650 mg Q6H PRN Administration Mild Pain (1-3) or Fever Amoxicillin/Clavulanate Potassium 1 tablet 04/07/25 21:00 04/09/25 09:42 Amoxicillin/Clavulanate K 875-125 Mg Tab PO 1 tablet Q12HR HUNG Administration Aspirin 81 mg 04/04/25 09:55 04/09/25 09:42 Aspirin 81 Mg Enteric Tablet PO 81 mg QAM HUNG Administration Atorvastatin Calcium 20 mg 04/05/25 09:00 04/09/25 09:42 Atorvastatin 20 Mg Tablet PO 20 mg DAILY HUNG Administration Doxycycline Hyclate 100 mg 04/07/25 18:00 04/09/25 06:08 Doxycycline Hyclate 100 Mg Tablet PO 100 mg Q12H HUNG Administration Enoxaparin Sodium 40 mg 04/04/25 09:00 04/09/25 09:44 Enoxaparin 40 Mg/0.4 Ml Syringe SUB-Q 40 mg DAILY HUNG Administration Folic Acid 1 mg 04/04/25 11:15 04/09/25 09:44 Folic Acid 1 Mg/0.2 Ml Inj IV PUSH 1 mg QAM HUNG Administration Gabapentin 600 mg 04/04/25 17:00 04/09/25 09:42 Gabapentin 300 Mg Capsule BY MOUTH 600 mg TID HUNG Administration Hydralazine HCl 10 mg 04/03/25 18:25 04/08/25 21:13 Hydralazine Hcl 20 Mg/Ml Vial IV PUSH 10 mg Q8H PRN Administration Blood Pressure - >180/90 Lorazepam 1 mg 04/05/25 06:30 04/09/25 09:48 Lorazepam Inj (*Crx) 2 Mg/Ml Vial IV PUSH 1 mg Q6H PRN Administration Anxiety Losartan Potassium 100 mg 04/04/25 10:55 04/09/25 09:42 Losartan Potassium 100 Mg Tablet PO 100 mg DAILY [facility] Administration Metoprolol Tartrate 50 mg 04/04/25 17:00 04/09/25 09:42 Metoprolol Tartrate 50 Mg Tab PO 50 mg BID [facility] Administration Nicotine 1 patch 04/06/25 09:00 04/09/25 09:43 Nicotine (*Pbkc) 21 Mg Patch TRANSDERM Not Given DAILY [facility] Ondansetron HCl 4 mg 04/03/25 18:24 Ondansetron Inj 4 Mg/2 Ml Vial IV PUSH Q6H PRN Nausea And Vomiting Pantoprazole Sodium 40 mg 04/04/25 09:00 04/09/25 09:42 Pantoprazole 40 Mg Tablet PO 40 mg QAM [facility] Administration Thiamine HCl 100 mg 04/04/25 11:20 04/09/25 09:43 Thiamine Hcl 200 Mg/2 Ml Vial IV PUSH 100 mg QAM [facility] Administration Triamcinolone Acetonide 1 applic 04/04/25 09:00 04/09/25 09:49 Triamcinolone Acet 0.1% Cream 80 Gm Tube TOPICAL Not Given BID [facility] Radiology Results: ITS Impressions Head CT 04/03/25 11:05 IMPRESSION: No evidence for acute intracranial hemorrhage or calvarial fracture. Chest X-Ray 04/03/25 13:17 IMPRESSION: Diffuse bilateral airspace disease. Findings can represent diffuse pulmonary edema versus multifocal pneumonia in appropriate clinical settings. Short-term follow-up chest radiograph is recommended after appropriate clinical therapy. Chest CT 04/03/25 15:31 IMPRESSION: Scattered areas of honeycombing, groundglass opacities, and airspace opacities are seen in both lungs. Right pleuroparenchymal thickening is also noted. Findings likely represent an infectious/inflammatory process. Clinical correlation is recommended. Short term follow-up chest radiograph is recommended after appropriate clinical therapy. Chest/Abdomen/Pelvis CT 04/05/25 16:53 IMPRESSION: CHEST: 1. Highly suggestive pneumonia in the left upper lobe. 2. Trace of right pleural effusion with adjacent atelectasis. ABDOMEN/PELVIS: 1. No evidence of intestinal obstruction seen. Focal dilatation in the area of the bowel surgery is noted. Clinical correlation and follow-up advised. 2. Bilateral fat containing inguinal hernias. Brain MRI 04/06/25 13:31 IMPRESSION: 1. Mild increased T2 signal intensity in the bilateral parieto-occipital regions suspicious for posterior reversible encephalopathy syndrome (PRES) typically presenting with headaches, seizures, encephalopathy and visual disturbance. This could result from severe hypertension, sepsis, alcohol hepatitis, hyperammonemia, drug toxicity, hemolytic uremic syndrome or thrombocytopenic thrombotic purpura. Lumbar Puncture Fluoroscopy 04/06/25 17:04 IMPRESSION: 1. Successful fluoro-guided lumbar puncture with normal opening pressure of 13 cm water. Labs Labs: Laboratory Results - last 24 hr 04/06/25 04/08/25 04/09/25 14:14 09:59 05:43 WBC RBC Hgb Hct MCV MCH MCHC RDW Plt Count MPV Immature Gran % (Auto) Neut % (Auto) Lymph % (Auto) [place] % (Auto) Eos % (Auto) Baso % (Auto) Lymph # (Auto) [place] # (Auto) Eos # (Auto) Baso # (Auto) Abs Immat Gran (auto) Absolute Neuts (auto) Absolute Nucleated RBC Nucleated RBC % Sodium 140 143 Potassium 3.0 L 3.4 Chloride 110 H 111 H Carbon Dioxide 18 L 17 L Anion Gap 12 15 H BUN 6 L 10 Creatinine 1.43 H 1.47 H Estim Creat Clear Calc 57 56 Estimated GFR 50 L 48 L Glucose 194 H 150 H Calcium 7.6 L 7.8 L Miscellaneous Test Comment 04/09/25 08:15 WBC 7.2 RBC 4.43 L Hgb 12.8 L Hct 39.3 L MCV 88.7 MCH 28.9 MCHC 32.6 RDW 15.3 H Plt Count 182 MPV 11.1 H Immature Gran % (Auto) 1.0 H Neut % (Auto) 63.7 Lymph % (Auto) 18.6 [place] % (Auto) 12.2 H Eos % (Auto) 4.2 Baso % (Auto) 0.3 Lymph # (Auto) 1.34 [place] # (Auto) 0.9 H Eos # (Auto) 0.3 Baso # (Auto) 0.0 Abs Immat Gran (auto) 0.07 H Absolute Neuts (auto) 4.6 Absolute Nucleated RBC 0.000 Nucleated RBC % 0.0 Sodium Potassium Chloride Carbon Dioxide Anion Gap BUN Creatinine Estim Creat Clear Calc Estimated GFR Glucose Calcium Miscellaneous Test
--- NOTE | 2025-04-09 10:27 | P.DS_ITS ---
DS: Admitting Diagnosis Discharge Date 04/09/25 Admitting Diagnosis (1) Altered mental status: Qualifiers: Altered mental status type: unspecified Qualified Code(s): R41.82 - Altered mental status, unspecified Code(s): R41.82 - Altered mental status, unspecified Status: Acute DS: Discharge Diagnosis Discharge Diagnosis (1) Altered mental status: Qualifiers: Altered mental status type: unspecified Qualified Code(s): R41.82 - Altered mental status, unspecified Code(s): R41.82 - Altered mental status, unspecified Status: Acute DS: Summary Hospital Course Hospital Course: 64 y/o M with PMH of COPD, ADD, hypertension, hyperlipidemia, anxiety, drug abuse on Suboxone, and alcohol abuse presents here with altered mental status. The following med issues have been addressed during hospitalization Altered mental status: Qualifiers: Altered mental status type: unspecified Qualified Code(s): R41.82 - Altered mental status, unspecified Code(s): R41.82 - Altered mental status, unspecified Status: Acute Assessment and Plan: confused, some difficulty with swallowing and choking episodes. Head CT was unremarkable. UDS and ethanol were negative. viral PCR negative. UA showed no indicators of infection. pending MRI. Neurology has been consulted. Need to rule out on latest seizure History of alcohol abuse Start thiamine folic acid IV 04/04 BCX 04/03/25 showed no growth. pt is restless, MRI can't be performed I discussed the case with neurologist Edvin, he agreed to proceed LP today and he would alberto EEG and recommended to hold antiviral med now 04/05 Pending CSF culture, viral studies, Gram stain, and chemical analysis Patient became alert oriented today. Brain MRI showed mild increased T2 signal intensity in the bilateral parieto-occipital regions suspicious for posterior reversible encephalopathy syndrome (PRES) typically presenting with headaches, seizures, encephalopathy and visual disturbance. This could result from severe hypertension, sepsis, alcohol hepatitis, hyperammonemia, drug toxicity, hemolytic uremic syndrome or thrombocytopenic thrombotic purpura. CSF clear lymphocyte 50%, right blood cells 0 Appreciate neurologist improved, consider possible metabolic encephalopathy due to infection Sepsis: Code(s): A41.9 - Sepsis, unspecified organism Status: Acute Assessment and Plan: - meets SIRS criteria: HR >90, RR >20. - lactic acid: 0.8 - 30 mL/kg = 3L, given 2L bolus. Will give third L at 100 mL/hr x1 - suspected source: Multifocal pneumonia - started on azithromycin, ceftriaxone, and vancomycin. Upon further evaluation of HPI, some concern for choking and dysphagia. cover for aspiration pneumonia and exchanged to Zosyn received vancomycin as the patient's MRSA is positive. - blood cultures drawn on 04/03 no growth - UA: 2+ protein, 2+ ketones - monitor hemodynamic stability change to doxycycline p.o. Augmentin p.o. 04/06 Patient completed antibiotics treatment today Multifocal pneumonia: Code(s): J18.8 - Other pneumonia, unspecified organism Status: Acute Assessment and Plan: CXR: Diffuse bilateral airspace disease. Findings can represent diffuse pulmonary edema versus multifocal pneumonia in appropriate clinical settings. Short-term follow-up chest radiograph is recommended after appropriate clinical therapy. - Chest CT: Scattered areas of honeycombing, groundglass opacities, and airspace opacities are seen in both lungs. Right pleuroparenchymal thickening is also noted. Findings likely represent an infectious/inflammatory process. possible aspiration, sepsis - started on Zosyn and Vancomycin on 04/03 - MRSA PCR + on 04/03, - Viral PCR negative changed to vancomycin and ceftriaxone, discontinued Zosyn 04/06. CSF analysis does not suggest bacterial infection. change to doxycycline p.o. Augmentin p.o. 04/06 Complete antibiotics treatment today Diarrhea Follow-up C diff negative Resolved today Hypertension urgency Code(s): I10 - Essential (primary) hypertension Status: Chronic Assessment and Plan: Continue losartan 100 mg daily p.o., metoprolol 50 mg b.i.d. p.o. Blood pressure controlled dehydration Received d5 normal saline IV 125 mL/hour Appetite improving, dehydration corrected Discontinue IV fluid Received PT OT Patient is discharged home today. Patient condition was stable before discharge, hospital course uneventful Time Spent with Patient Time attestation: Total time spent providing and/or coordinating discharge services: Exam Narrative: GENERAL: ill-appearing, in no acute distress. Well-nourished. - EYES: EOMI. Anicteric. - HENT: dry mucous membranes. - LUNGS: Clear to auscultation bilateral ly, no wheezing, rhonchi, or rales. - CARDIOVASCULAR: Regular rate and rhyth m. No murmur. No JVD. - ABDOMEN: Soft, non-tender and non-dist ended. No palpable masses. - EXTREMITIES: No edema. Peripheral puls es 2+. Non-tender. - NEUROLOGIC: No focal neurological defi cits. CN II-XII grossly intact. - PSYCHIATRIC: Awake, alert and oriented x 3. Drowsy mood and affect. - SKIN: No rashes or lesions. Warm. - LYMPH: No cervical lymphadenopathy. DS: Data Data Completed and Pending Labs on day of discharge: Labs from last 24 hours 04/09/25 04/09/25 04/06/25 08:15 05:43 14:14 WBC 7.2 RBC 4.43 L Hgb 12.8 L Hct 39.3 L MCV 88.7 MCH 28.9 MCHC 32.6 RDW 15.3 H Plt Count 182 MPV 11.1 H Immature Gran % (Auto) 1.0 H Neut % (Auto) 63.7 Lymph % (Auto) 18.6 Bonner % (Auto) 12.2 H Eos % (Auto) 4.2 Baso % (Auto) 0.3 Lymph # (Auto) 1.34 Bonner # (Auto) 0.9 H Eos # (Auto) 0.3 Baso # (Auto) 0.0 Abs Immat Gran (auto) 0.07 H Absolute Neuts (auto) 4.6 Absolute Nucleated RBC 0.000 Nucleated RBC % 0.0 Sodium 143 Potassium 3.4 Chloride 111 H Carbon Dioxide 17 L Anion Gap 15 H BUN 10 Creatinine 1.47 H Estim Creat Clear Calc 56 Estimated GFR 48 L Glucose 150 H Calcium 7.8 L Miscellaneous Test Comment Preliminary micro results at discharge 04/06/25 14:20 Sterile Body Fluid Culture - Preliminary Cerebral Spinal Fluid 04/03/25 13:52 Blood Culture - Preliminary Blood 04/03/25 13:52 Blood Culture - Preliminary Blood Discharge Plan Discharge Attending physician on discharge: Rony Rebolledo Consulting providers: Gordy Garcia Discharging Clinician: Rony Rebolledo Anticipated Discharge Date/Time: 04/09/25 14:27 Patient Disposition: Home Activity: as tolerated Diet: as tolerated Patient Instructions: Antibiotic Form, Enoxaparin (By injection) Patient Language: Malagasy Stand Alone Forms: General Discharge Information Follow-up/Referrals: Horace Laguerre DO [Primary Care Provider] - (Patient needs to see primary care doctor in 1 week) Discharge Medications: Continued buprenorphine HCl 8 mg tablet, sublingual 8 mg sublingual BID methylphenidate HCl 20 mg tablet 20 mg PO BID duloxetine 60 mg capsule,delayed release(DR/EC) 60 mg PO DAILY Qty: 90 3RF ondansetron HCl 4 mg tablet 4 mg PO BID PRN (Reason: nausea and vomiting) Qty: 20 0RF triamcinolone acetonide 0.1 % cream 1 applic TOPICAL BID metoprolol tartrate 50 mg tablet 50 mg PO BID atorvastatin 20 mg tablet 20 mg PO DAILY Qty: 90 1RF gabapentin 300 mg capsule See Rx Instructions .ROUTE .COMPLEX Qty: 540 1RF Dose Instruction: TAKE 1 CAPSULE BY MOUTH SIX TIMES DAILY Rx Instructions: TAKE 1 CAPSULE BY MOUTH SIX TIMES DAILY losartan 100 mg tablet 100 mg PO DAILY Qty: 90 1RF bupropion HCl [Wellbutrin XL] 300 mg tablet extended release 24 hr 300 mg PO QAM Qty: 90 1RF Date of admission: 04/04/25 10:33 Primary Care Provider: Horace Laguerre Admitting Provider: Sj Barrett Attending physician on admission: Faith Sam Condition: Improved
[2025-04-09 15:08] LABS: Varicella-Zoster Ab, IgG Reactive (Non Reactive); Varicella-Zoster Ab, IgM <0.91 index (0.00-0.90)
[2025-04-10 13:09] LABS: West Nile Virus, IgG Negative (Negative); West Nile Virus, IgM Negative (Negative)
[2025-04-10 14:08] LABS: VDRL, CSF Non Reactive (Non Rea:<1:1)
== END 2025-04-09 11:11 | disposition home or self-care (01) | DRG 871 ==
LOC: ANHED 15:16 → ANHIMU 17:22 → ANH2MED 04-09 10:28 → ANHIMU 04-10 12:16
PROVIDERS: Emergency Medicine; Family Medicine; Student in an Organized Health Care Education/Training Program; Admitting Provider Internal Medicine; Emergency Provider Physician Assistant; PCP Internal Medicine; Visit Provider Hospitalist
DX: A41.9 Sepsis, unspecified organism (principal); G93.41 Metabolic encephalopathy; J18.8 Other pneumonia, unspecified organism; J69.0 Pneumonitis due to inhalation of food and vomit; J96.01 Acute respiratory failure with hypoxia; J44.0 Chronic obstructive pulmonary disease with (acute) lower respiratory infection; R13.10 Dysphagia, unspecified; I16.0 Hypertensive urgency; E86.0 Dehydration; E78.5 Hyperlipidemia, unspecified; K21.9 Gastro-esophageal reflux disease without esophagitis; M19.90 Unspecified osteoarthritis, unspecified site; F41.9 Anxiety disorder, unspecified; F32.A Depression, unspecified; F98.8 Other specified behavioral and emotional disorders with onset usually occurring in childhood and adolescence; F17.210 Nicotine dependence, cigarettes, uncomplicated; Z85.828 Personal history of other malignant neoplasm of skin; Z98.1 Arthrodesis status
CPT/HCPCS: 36415; 36600; 62328; 70450; 70553; 71045; 71250; 74176; 80048; 80053; 80202; 80307; 81001; 82077; 82550; 82565; 82805; 82945; 82948; 83605; 84132; 85018; 85025; 85055; 85610; 85730; 86592; 86787; 86788; 87040; 87070; 87493; 87497; 87529; 87637; 87641; 87798; 89051; 92610; 93005; 96361; 96365; 96367; 96375; 99291; A9270; A9577; J0360; J0456; J0696; J1630; J1650; J2060; J2543; J2560; J3373; J3411; J3480; J7030; J7040; J7042; J7050; J7120

== ENCOUNTER 2025-05-18 13:51 | Outpatient (CLI) | payer MEDICARE, SELFPAY ==
--- OUTSIDE RECORDS SUMMARY | 2025-05-16 09:46 | XMS_ITS | Encounter Summary ---
Author Organization [facility] Address [address] [facility] [facility] [place] [address] Care Team Providers Care Mail Officer Name Role Phone Wilbert Jones MD Primary Care Provider + [phone] Wilbert Jones MD Primary Care Provider + [phone] Encounter Details Date Type Department Care Team (Late st Contact Info) Description 04/06/2018 Preop Outreach [facility] ENDOSCOPY [address] [place] [address] Sarah Gilliam, FROILAN Social History Tobacco Use Types Packs/Day Years Used Date Smoking Tobacco: Never Assessed Sex and Gender Information Value Date Recorded Sex Assigned at Not on file 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 Gender Identity Not on file Sexual Orientation Not on file documented as of this encounter Plan of Treatment Not on file documented as of this encounter Visit Diagnoses Not on filedocumented in this encounter Additional Health Concerns Infection Onset Date Last Indicated Resolved Time MRSA 09/01/2018 09/01/2018 documented as of this encounter Care Teams Mail Officer Relationship Specialty Start Date End Date Wilbert Jones MD [address] [place], [place] [id number] PCP - General 03/08/18 08/28/18 Wilbert Jones MD [address] [place] [address] PCP - General 09/01/18 documented as of this encounter
--- OUTSIDE RECORDS SUMMARY | 2025-05-16 09:47 | XMS_ITS | Clinical Summary ---
Author Organization [facility] Address [address], [address] [address] Phone Care Team Providers Care Soft Sugar Supervisor Name Role Phone Wilbert Jones MD Primary Care Provider [phone] Aries Chu DO Unavailable [phone] Horace Velazco MD Unavailable Medications polyethylene glycol [...] Insurance MEDICAID [employer] Care Teams Soft Sugar Supervisor Relationship Specialty Start Date End Date Wilbert Jones MD [address] [place] [id number] PCP - General Family Medicine 10/26/17 Aries Chu DO [address] [place] [id number] Gastroenterology 10/26/17 Horace Velazco MD [address] [place] [address] Family Medicine 10/26/17
--- OUTSIDE RECORDS SUMMARY | 2025-05-16 09:47 | XMS_ITS | Clinical Summary ---
Author Organization [facility] Address [address] [place] [address] Care Team Providers Care Safety Investigator Name Role Phone Wilbert Jones MD Primary Care Provider [phone] Source Comments [facility],non-owned Affiliates and Associated Physician Practices is amultiple site organization consisting of ambulatory clinics and hospital sitesin [place], [place], [place] and [place]. This disclosure is being madepursuant to the Care Everywhere program and may not contain all information available regarding this patient. Last updated 18.[facility] Allergies No known active allergies Medications * Be aware that medications may not be up to date on this document. Alwaysverify current medications with the patient. gabapentin (NEURONTIN) 300 MG capsule Take 300 mg by mouth 3 times daily Active venlafaxine XR 24hr (EFFEXOR XR) 150 MG capsule Take 150 mg by mouth daily with breakfast Active multivitamin daily (THERAGRAN) tablet Take 1 tablet by mouth daily with food Active folic acid (FOLVITE) 1 MG tablet Take 1 mg by mouth once daily Active metoprolol tartrate (LOPRESSOR) 25 MG tablet Take 25 mg by mouth 2 times daily Active buprenorphine (SUBUTEX) 2 MG tablet Dissolve 4 mg under the tongue 4 times daily Active methylphenidate 24hr (RITALIN LA) 20 MG capsule Take 20 mg by mouth 3 times daily Active omeprazole (PRILOSEC) 20 MG capsule Take 20 mg by mouth daily before breakfast Active HYDROcodone-bon taminophen (NORCO) 5-325 MG tablet Take 1 tablet by mouth every 8 hours as needed for Pain 10 tablet 8 Active docusate sodium (COLACE) 100 MG capsule Take 1 capsule by mouth once daily 30 capsule 8 Active sennosides (SENOKOT) 8.6 MG tablet Take 1 tablet by mouth once daily 30 tablet 8 Active Active Problems Problem Noted Date Diagnosed Date Attention to ileostomy 07/21/2018 Incisional hernia, without obstruction or gangre ne 07/21/2018 Resolved Problems Problem Noted Date Diagnosed Date Resolved Date Fever 09/01/2018 09/15/2018 Family History Medical History Relation Name Comments None Known Mother Relation Name Status Comments Father CHF Mother Alive Social History Tobacco Use Types Packs/Day Years Used Date Smoking Tobacco: Every Day Cigarettes Smokeless Tobacco: Never Tobacco Cessation:Ready to Q uit: No; Counseling Given: No Alcohol Use Standard Drinks/Week Comments No 0 (1 standard drink = 0.6 oz pur e alcohol) Sex and Gender Information Value Date Recorded Sex Assigned at Not on file 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 Gender Identity Not on file Sexual Orientation Not on file Last Filed Vital Signs Vital Sign Reading Time Taken Comments Blood Pressure 150/97 10/20/2018 2:53 PM [employer]ENA[employer]IST[employer] Pulse 96 10/20/2018 2:53 PM [employer] Temperature 36.1 C (97 F) 10/20/2018 2:53 PM [employer] Respiratory Rate 16 09/07/2018 9:07 AM [employer]ENANT B[employer]IST[employer] Oxygen Saturation 100% 09/07/2018 9:07 AM L[employer]UTENANT BALLIST[employer] Inhaled Oxygen Concentration 28% 09/04/2018 9 :08 AM [employer]ENANT B[employer]IST[employer] Weight 94.3 kg (208 lb) 10/20/2018 2:53 PM [employer]ENA[employer] Height 180.3 cm (5' 11) 10/20/2018 2:53 PM [employer]UTENANT BALLIST[employer] Body Mass Index 29.01 10/20/2018 2:53 PM [employer]UTENANT BALLIST[employer] Plan of Treatment Health Maintenance Due Date Last Done Comments COLOGUARD (AGES 45-75) - COL ON CA SCREENING 1960 CT COLONOGRAPHY - COLON CA SCREENING 1960 FIT - COLON CA SCREENING 1960 FLEX SIG - COLON CA SCREENING 1961 LIPID TESTING 1961 HIV SCREENING 1976 HEPATITIS C SCREENING 05/21/1979 DTAP/TDAP/TD VACCINES (1 - Tdap) 1980 PNEUMOCOCCAL VACCINE 50+ (1 of 1 - PCV) 2011 ZOSTER VACCINE (1 of 2) 2011 COVID-19 VACCINE (1 - 2023-2 5 season) 2024 DEPRESSION SCREENING 09/27/2024 INFLUENZA VACCINE (#1) 2025 COLON MONITORING 05/06/2028 05/06/2018, 05/06/2018 COLONOSCOPY - COLON CA SCREENING 05/06/2028 05/06/2018, 05/06/2018 Colorectal Cancer Screening 05/06/2028 Respiratory Syncytial Virus (RSV) Vaccine Pt: or over 60 yrs (1 - 1-dose 75+ series) 2036 HEPATITIS B VACCINE Aged Out No longe r eligible based on patient's age to complete this topic HIB VACCINE Aged Out No longer eligi ble based on patient's age to complete this topic HPV VACCINE Aged Out No longer eligi ble based on patient's age to complete this topic MENINGOCOCCAL (Group B) VACCINE SHARED DECISION-MAKING Aged Out No longer eligible based on patient's age to complete this topic MENINGOCOCCAL GROUPS A/C/Y/W VACCINE Aged Out No longer eligible b ased on patient's age to complete this topic Medical Devices Implanted Type Area Physician Neonatology Device Identifier Shelf Expiration Date Model / Serial / Lot Mesh Srg Phasix Sepra [id number] Rect Mfl Implanted:Qty: 1 on 08/29/2018 by Brad Donovan MD at [facility] [employer] 04/23/2020 [id number] / / Procedures Procedure Name Priority Date/Time Associated Diagnosis Comments ENDOSCOPY, COLON, DIAGNOSTIC Routine 05/06/2018 10:09 AM CDT from Last 3 Months or Most Recently Relevant to Health Maintenance Results * ENDOSCOPY, COLON, DIAGNOSTIC (05/06/2018 10:09 AM CDT) Report Endoscopy POC Endoscopy Department Report _ Patient Name: Noé Shirley Procedure Date: 05/06/2018 10:09 AM Date of : 1960 Classification: Outpatient Gender: Male _ Providers: Jo-Ann Sarkar MD: Procedure: Flexible Sigmoidoscopy Indications: Screening for colorectal malignant neoplasm Medications: Propofol per Anesthesia Description of Procedure: After obtaining informed consent, the endoscope was passed under direct vision. Throughout the procedure, the patient's blood pressure, pulse, and oxygen saturations were monitored continuously. The Endoscope was introduced through the anus and advanced to the sigmoid colon. The flexible sigmoidoscopy was accomplished without difficulty. The patient tolerated the procedure well. The quality of the bowel preparation was good. Findings: The perianal and digital rectal examinations were normal. A few medium-mouthed diverticula were found in the mid sigmoid colon. Estimated blood loss: none. Hartmanns stump normal up to 35cm Estimated Blood Loss: Estimated blood loss: none. Complications: No immediate complications. Impression: - Diverticulosis in the mid sigmoid colon. - The entire examined colon is normal. - No specimens collected. - Hartmanns stump normal up to 35cm Recommendation: - Return to my office in 5 weeks. Attending Participation: I personally performed the entire procedure. Procedure Code(s): --- Professional --- G0104, Colorectal cancer screening; flexible sigmoidoscopy Diagnosis Code(s): --- Professional --- Z12.11, Encounter for screening for malignant neoplasm of colon K57.30, Diverticulosis of large intestine without perforation or abscess without bleeding CPT copyright 2016 [employer]. All rights reserved. The codes documented in this report are preliminary and upon team physician review may be revised to meet current compliance requirements. Jo-Ann Brink, 05/06/2018 11:02:41 AM Note Initiated On: 05/06/2018 10:09 AM Number of Addenda: 0 [facility] [address] [address] [facility] 05/06/2018 10:0 9 AM CDT us Idris Davalos MD GI PROCEDURE ORDERABL ES Edited Result - Final [facility] from Last 3 Months or Most Recently Relevant to Health Maintenance Additional Health Concerns Infection Onset Date Last Indicated MRSA 09/01/2018 09/01/2018 Insurance [facility] [employer] [facility] Advance Directives * Full Code (Latest Code Status on File) Date Activated Date Inactivated Comments 08/29/2018 5:08 PM 09/07/2018 1:18 PM Care Teams Safety Investigator Relationship Specialty Start Date End Date Wilbert Jones MD [address] [place] [address] PCP - General 09/01/18
--- OUTSIDE RECORDS SUMMARY | 2025-05-16 09:47 | XMS_ITS | Clinical Summary ---
Author Organization [facility] Address [address] [place] [address] Care Team Providers Care Assembling Machine Operator Name Role Phone Juancho Noonan MD Primary [...] type 05/24/2020 Neuropathy 05/24/2020 Attention to ileostomy ([facility]) 018 Incisional hernia, without obstruction or gangre ne 07/21/2018 Hypercalcemia 08/06/2016 BMI 27.0-27.9,adult 05/11/2016 Overview (05/23/2020): Transitioned From: Overweight Male erectile dysfunction, unspecified 6 Acid reflux disease 02/07/2015 Nicotine dependence 02/07/2015 Anxiety 02/06/2015 Cervical pain (neck) 02/06/2015 Depression 02/06/2015 Hypertension 02/06/2015 Insomnia, uncontrolled 02/06/2015 Encounter for preventive health examination 01/25 Overview (05/23/2020): Transitioned From: jail use of drug Immunizations Immunization Administration Dates Next Due Tdap (Generic) 08/27/2018,09/27/2009 Family History Medical History Relation Comments Hypertension Brother Hypertension Father [place] Father Alzheimers Paternal Grandmother Relation Status Comments [...] Final Result Performing Organization Address City/State/ZIP Co ar Phone Number [facility] from Last 3 Months or Most Recently Relevant to Health Maintenance Insurance [employer] Care Teams Assembling Machine Operator Relationship Specialty Start Date End Date Juancho Noonan MD PCP - General FAMILY MEDICINE SPORTS MEDICINE 05/22/20
--- OUTSIDE RECORDS SUMMARY | 2025-05-18 13:53 | XMS_ITS | Encounter Summary ---
Author Organization [facility] Address [address] [place] [address] Care Team Providers Care Bath Tester Name Role Phone Wilbert Jones MD Primary Care Provider + [phone] Wilbert Jones MD Primary Care Provider + [phone] Encounter Details Date Type Department Care Team (Late st Contact Info) Description 04/06/2018 Preop Outreach [facility] ENDOSCOPY [address] [place] [address] Sarah Gilliam, FROILAN Social History Tobacco Use Types Packs/Day Years Used Date Smoking Tobacco: Never Assessed Sex and Gender Information Value Date Recorded Sex Assigned at Not on file 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 Gender Identity Not on file Sexual Orientation Not on file documented as of this encounter Plan of Treatment Not on file documented as of this encounter Visit Diagnoses Not on filedocumented in this encounter Additional Health Concerns Infection Onset Date Last Indicated Resolved Time MRSA 09/01/2018 09/01/2018 documented as of this encounter Care Teams Bath Tester Relationship Specialty Start Date End Date Wilbert Jones MD [address] [place], [place] [id number] PCP - General 03/08/18 08/28/18 Wilbert Jones MD [address] [place] [address] PCP - General 09/01/18 documented as of this encounter
--- OUTSIDE RECORDS SUMMARY | 2025-05-18 13:54 | XMS_ITS | Clinical Summary ---
Author Organization [facility] Address [address], [address] [address] Phone Care Team Providers Care Rod Mill Tender Name Role Phone Wilbert Jones MD Primary Care Provider [phone] Aries Chu DO Unavailable [phone] Horace Velazco MD Unavailable Medications polyethylene [...] of 2) 2011 SARS-COV-2 Immunization (1 - 2023- season) 2024 Influenza Immunization (#1) 2025 Respiratory [...] Insurance MEDICAID [employer] Care Teams Rod Mill Tender Relationship Specialty Start Date End Date Wilbert Jones MD [address] [place] [id number] PCP - General Family Medicine 10/26/17 Aries Chu DO [address] [place] [address] Gastroenterology 10/26/17 Horace Velazco MD [address] [place] [id number] Family Medicine 10/26/17
--- OUTSIDE RECORDS SUMMARY | 2025-05-18 13:54 | XMS_ITS | Clinical Summary ---
Author Organization [facility] Address [address] [place] [address] Care Team Providers Care Auto Body Builder Apprentice Name Role Phone Juancho Noonan MD Primary [...] type 05/24/2020 Neuropathy 05/24/2020 Attention to ileostomy ([facility]) 018 Incisional hernia, without obstruction or gangre ne 07/21/2018 Hypercalcemia 08/06/2016 BMI 27.0-27.9,adult 05/11/2016 Overview (05/23/2020): Transitioned From: Overweight Male erectile dysfunction, unspecified 6 Acid reflux disease 02/07/2015 Nicotine dependence 02/07/2015 Anxiety 02/06/2015 Cervical pain (neck) 02/06/2015 Depression 02/06/2015 Hypertension 02/06/2015 Insomnia, uncontrolled 02/06/2015 Encounter for preventive health examination 01/25 Overview (05/23/2020): Transitioned From: long-term use of drug Immunizations Immunization Administration Dates Next Due Tdap (Generic) 08/27/2018,09/27/2009 Family History Medical History Relation Comments Hypertension Brother Hypertension Father [place] Father Alzheimers Paternal Grandmother Relation Status Comments [...] topic Meningococcal Vaccine Aged Out No alberto igl eligible based on patient's age to complete [...] Final Result Performing Organization Address City/State/ZIP Co [place] Phone Number [facility] [place] from Last 3 Months or Most Recently Relevant to Health Maintenance Insurance [employer] Care Teams Auto Body Builder Apprentice Relationship Specialty Start Date End Date Juancho Noonan MD PCP - General FAMILY MEDICINE SPORTS MEDICINE 05/22/20
--- OUTSIDE RECORDS SUMMARY | 2025-05-18 13:54 | XMS_ITS | Clinical Summary ---
Author Organization [facility] Address [address] [place] [address] Care Team Providers Care Management Trainee Marketing Name Role Phone Wilbert Jones MD Primary Care Provider [phone] Source Comments [facility],non-owned Affiliates and Associated Physician Practices is amultiple site organization consisting of ambulatory clinics and hospital sitesin [place], [place], [place] and [place]. This disclosure is being madepursuant to the Care Everywhere program and may not contain all information available regarding this patient. Last updated 18.[facility] Allergies No known active allergies Medications * [...] on file Legal Sex Male 6:18 AM LEAF STICKER Gender Identity Not on file Sexual Orientation Not on file Last Filed Vital Signs Vital Sign Reading Time Taken Comments Blood Pressure 150/97 10/20/2018 2:53 PM LEAF STICKER Pulse 96 10/20/2018 2:53 PM LEAF STICKER Temperature 36.1 C (97 F) 10/20/2018 2:53 PM LEAF STICKER Respiratory Rate 16 09/07/2018 9:07 AM LEAF STICKER Oxygen Saturation 100% 09/07/2018 9:07 AM LEAF STICKER Inhaled Oxygen Concentration 28% 09/04/2018 9 :08 AM LEAF STICKER Weight 94.3 kg (208 lb) 10/20/2018 2:53 PM LEAF STICKER Height 180.3 cm (5' 11) 10/20/2018 2:53 PM LEAF STICKER Body Mass Index 29.01 10/20/2018 2:53 PM LEAF STICKER Plan of Treatment Health Maintenance Due Date [...] this topic Medical Devices Implanted Type Area Customer Service Consultant Device Identifier Shelf Expiration Date Model / Serial / Lot Mesh Srg Phasix Sepra [id number] Rect Mfl Implanted:Qty: 1 on 08/29/2018 by Brad Donovan MD at [facility] [employer] 04/23/2020 [id number] / / Procedures Procedure Name Priority Date/Time [...] or abscess without bleeding CPT copyright 2016 [employer]. All rights reserved. The codes documented in this report are preliminary and upon arabic linguist review may be revised to meet current compliance requirements. Jo-Ann Brink, 05/06/2018 11:02:41 AM Note Initiated On: 05/06/2018 10:09 AM Number of Addenda: 0 [facility] [address] [place] [address] [facility] [employer] 05/06/2018 10:0 9 AM CDT us Idris Davalos MD GI PROCEDURE ORDERABL ES Edited Result - Final [facility] [employer] from Last 3 Months or Most Recently Relevant to Health Maintenance Additional Health Concerns Infection Onset Date Last Indicated MRSA 09/01/2018 09/01/2018 Insurance [facility] [employer] [facility] Advance Directives * Full Code (Latest Code Status on File) Date Activated Date Inactivated Comments 08/29/2018 5:08 PM 09/07/2018 1:18 PM Care Teams Management Trainee Marketing Relationship Specialty Start Date End Date Wilbert Jones MD [address] [place] [address] PCP - General 09/01/18
[2025-05-18 18:45] LABS: Hematocrit 42.8 % (42.0-52.0); Hemoglobin 14.0 g/dL (14.0-18.0); Immature Granulocyte Percent A 0.5 % (0-0.5); Lymphocytes Absolute Auto 1.57 K/mm3 (0.9-3.2); Mean Corpuscular HGB Conc 32.7 g/dl (32-36); Mean Corpuscular Hemoglobin 29.7 pg (26-34); Mean Corpuscular Volume 90.9 fl (80-100); Nucleated Red Blood Cells Absolute Auto 0.000 K/mm3 (0.0-0.012); Nucleated Red Blood Cells Perc 0.0 % (0.0-0.2); Platelet Count Result 111 k/mm3 (150-375); Red Blood Count 4.71 M/mm3 (4.6-6.20); White Blood Count 5.9 K/mm3 (4.5-10.0)
[2025-05-18 18:54] LABS: Alanine Aminotransferase 22 U/L (6-50); Albumin Level 4.4 g/dL (3.5-5.1); Alkaline Phosphatase 81 U/L (38-126); Anion Gap 7 mmol/L (4-12); Aspartate Amino Transferase 25 U/L (17-59); Bilirubin,Total 1.0 mg/dL (0.2-1.3); Blood Urea Nitrogen 15 mg/dL (9-20); Calcium 9.3 mg/dL (8.4-10.2); Carbon Dioxide 31 mmol/L (22-30); Chloride 103 mmol/L (98-107); Estimated Glomerular Filt Rate 48; Glucose 131 mg/dL (65-110); Potassium 4.6 mmol/L (3.4-5.0); Sodium 141 mmol/L (137-145); Total Protein 8.1 g/dL (6.3-8.2)
[2025-05-18 19:30] LABS: Prostate Specific Antigen 0.2 ng/mL (< OR = 4.0)
== END 2025-05-18 13:52 | disposition home or self-care (01) ==
PROVIDERS: PCP Internal Medicine; Visit Provider Nurse Practitioner
DX: E78.5 Hyperlipidemia, unspecified (principal); Z13.29 Encounter for screening for other suspected endocrine disorder; Z12.5 Encounter for screening for malignant neoplasm of prostate
CPT/HCPCS: 36415; 80053; 84153; 85025; G0103

== ENCOUNTER 2025-05-18 14:16 | Outpatient (CLI) | payer MEDICARE, SELFPAY ==
--- NOTE | ~2025-05-18 | XR_ITS ---
EXAMINATION: XR chest 2V 05/18/2025 14:35 INDICATION: Pneumonia. PROCEDURE: 2 view chest COMPARISON: 04/03/2025 FINDINGS: The lungs are clear. Interval resolution of bilateral airspace disease. The cardiomediastinal silhouette is within normal limits. There are no pleural effusions. There is no pneumothorax suspected. IMPRESSION: 1: NO ACUTE CARDIOPULMONARY DISEASE. Reviewed, dictated and finalized at location O.
== END 2025-05-18 14:17 | disposition home or self-care (01) ==
PROVIDERS: PCP Internal Medicine; Visit Provider Nurse Practitioner
DX: J18.8 Other pneumonia, unspecified organism (principal)
CPT/HCPCS: 71046

== ENCOUNTER 2025-05-28 19:29 | Emergency (ER) | payer MEDICARE, SELFPAY ==
[2025-05-28 19:35] VITALS: BP 137/88; PULSE 109; RESP 18; TEMP 36.7; O2SAT 100
--- NOTE | 2025-05-28 20:14 | ED_ITS ---
HPI - Male Genitourinary General Chief complaint: Urogenital-Male Stated complaint: cant pee Time Seen by Provider: 05/28/25 19:32 History of Present Illness HPI Narrative: Patient is a 65-year-old male who presents ER with concerns for urinary frequency. Ongoing for several weeks. Associated with weak stream. No dysuria. No discharge. No lower abdominal pain. No history of BPH or urinary retention. No fevers or chills or sweats. Restarted Ritalin today and has had 3 doses. He is a bit anxious. Related Data Home Medications ?Medication ?Instructions ?Recorded ?Confirmed ?Last Taken ?Type buprenorphine HCl 8 mg sublingual 8 mg sublingual BID 11/16/24 05/03/25 Unknown History tablet methylphenidate HCl 20 mg tablet 20 mg PO BID 11/16/24 05/03/25 Unknown History triamcinolone acetonide 0.1 % 1 applic topical BID 05/2105/03/25 Unknown History topical cream metoprolol tartrate 50 mg tablet 50 mg PO BID 04/04/25 05/03/25 Unknown History Allergies Allergy/AdvReac Type Severity Reaction Status Date / Time No Known Allergies Allergy Verified 05/28/25 19:40 Review of Systems Review of Systems: All systems reviewed & are unremarkable except as noted in HPI and below Constitutional: Constitutional: Reports no additional constitutional complaints Cardiovascular: Cardiovascular: Reports no additional cardiovascular complaints Respiratory: Respiratory: Reports no additional respiratory complaints Gastrointestinal: Gastrointestinal: Reports no additional gastrointestinal complaints Genitourinary: Genitourinary: Reports no additional male genitourinary complaints [facility] Past Medical History Medical History History of alcohol abuse has abstained for the past 5 years as of 2024 History of opioid abuse has abstained for the past 5 years as of 2024 Metabolic encephalopathy Occult blood in stools COPD (chronic obstructive pulmonary disease) ADD (attention deficit disorder) Benign essential hypertension Hyperlipidemia Depression GERD (gastroesophageal reflux disease) Skin cancer Arthritis Anxiety Surgical History Surgical History History of cervical spinal surgery Family History Family History Father , Age 59 [place] Heart disease Grandparent , Age 96 of Natural Causes No problems noted. Grandparent , Age 87 Lung Cancer Lung cancer Grandparent , Age 85 Natural Causes No problems noted. Grandparent , Age 83 Leukemia Leukemia Social History Social History Smoking packs per day: 0.5 Smoking cigarettes per day: 10.0 Years smoked: 20 Smoking pack-years: 10.00 Smoking status: Current every day smoker Tobacco type: cigarettes Alcohol intake: former Substance use: never Substance use type: opiates Lack of Transportation: No Lack of Food: Never True Current Housing: I Have Housing Concerned About Future Housing: No Difficulty Paying Gas/Electric Bills: No Difficulty Paying for Meds: No Currently Unemployed: No Education: Bachelor's Degree Difficulty w/ Childcare or Family Care: No Living arrangements: alone Spiritual care concerns: No Exam Narrative: GENERAL: Well-appearing, well-nourished, and in no acute distress. HEAD: Normocephalic, atraumatic. ENT: Mucous membranes moist. ABDOMEN: Large midline abdominal scar. EXTREMITIES: Normal range of motion. No edema. SKIN: Warm, dry, no rash. NEURO: Alert and oriented x3. PSYCH: Anxious with normal thought content. Course Course Emergency Course: Patient declines workup after having a bladder scan showing 187 mL of urine. Does not wish to have a straight cath a fairly catheterization. He has follow- up scheduled for tomorrow morning for blood work and imaging. I have interviewed and examined the patient. I have determined that the patient has the capacity to understand the information relevant to their care. The patient also understands the consequences of the various options after we discussed relevant information. I feel that the patient is able to understand the relevant information and responds appropriately to questions. I have attempted to persuade the patient to stay to receive care. The patient understands by leaving there is a possibility of , disability, or serious injury. Despite the above information the patient has made the decision to leave against medical advice. I have attempted to persuade the patient to follow up with a physician PAULO. I have also notified the patient they may return at any time to the ED for further care. Vital Signs Vital signs: Vital Signs Temperature 98.1 F 05/28/25 19:35 Pulse Rate 109 H 05/28/25 19:35 Respiratory Rate 18 05/28/25 19:35 Blood Pressure 137/88 05/28/25 19:35 Pulse Oximetry 100 05/28/25 19:35 Oxygen Delivery Room Air 05/28/25 19:35 Temperature 98.1 F 05/28/25 19:35 Pulse Rate 109 H 05/28/25 19:35 Respiratory Rate 18 05/28/25 19:35 Blood Pressure 137/88 05/28/25 19:35 Pulse Oximetry 100 05/28/25 19:35 Oxygen Delivery Room Air 05/28/25 19:35 Discharge Plan Discharge Clinical Impression: Urinary frequency Patient Disposition: Left Against Medical Advice Condition: Stable Patient Language: [place] Island[place] Prescriptions: No Action buprenorphine HCl 8 mg tablet, sublingual 8 mg sublingual BID methylphenidate HCl 20 mg tablet 20 mg PO BID duloxetine 60 mg capsule,delayed release(DR/EC) 60 mg PO DAILY Qty: 90 3RF ondansetron HCl 4 mg tablet 4 mg PO BID PRN (Reason: nausea and vomiting) Qty: 20 0RF triamcinolone acetonide 0.1 % cream 1 applic TOPICAL BID metoprolol tartrate 50 mg tablet 50 mg PO BID atorvastatin 20 mg tablet 20 mg PO DAILY Qty: 90 1RF gabapentin 300 mg capsule See Rx Instructions .ROUTE .COMPLEX Qty: 540 1RF Dose Instruction: TAKE 1 CAPSULE BY MOUTH SIX TIMES DAILY Rx Instructions: TAKE 1 CAPSULE BY MOUTH SIX TIMES DAILY losartan 100 mg tablet 100 mg PO DAILY Qty: 90 1RF bupropion HCl [Wellbutrin XL] 300 mg tablet extended release 24 hr 300 mg PO QAM Qty: 90 1RF Follow-up/Referrals: Horace Laguerre DO [Primary Care Provider, Internal Medicine]
--- NOTE | 2025-05-28 20:17 | PC.NURSE ---
Pt reports that he feels like his symptoms/anxiety are caused by his restarting his Ritalin. Pt reports that his anxiety has been eased by the bladder scan. Dr. Reyna to bedside to explain risks of leaving against medical advice, pt reports that he comprehends and would like to just follow up with his physician tomorrow morning as scheduled. Pt signed AMA form and ambulated out of department with his mother.
== END 2025-05-28 20:22 | disposition left against medical advice (07) ==
PROVIDERS: Emergency Provider Emergency Medicine; PCP Internal Medicine
DX: R35.0 Frequency of micturition (principal); F17.210 Nicotine dependence, cigarettes, uncomplicated; J44.9 Chronic obstructive pulmonary disease, unspecified; F98.8 Other specified behavioral and emotional disorders with onset usually occurring in childhood and adolescence; I10 Essential (primary) hypertension; E78.5 Hyperlipidemia, unspecified; F32.A Depression, unspecified; M19.90 Unspecified osteoarthritis, unspecified site; F41.9 Anxiety disorder, unspecified
CPT/HCPCS: 51702; 99283

== ENCOUNTER 2025-05-29 00:03 | Emergency (ER) | payer MEDICARE, SELFPAY ==
--- NOTE | ~2025-05-29 | CT_ITS ---
EXAMINATION: CT abdomen pelvis wo con DATE: 05/29/2025 00:55 INDICATION: Right-sided abdominal pain TECHNIQUE: Computed tomography (CT) of the abdomen and pelvis was performed without intravenous contrast. Automated exposure control and iterative reconstruction technique were employed. The dose-length product was 991.23 mGy-cm. COMPARISON: 04/05/2025 FINDINGS: Lung bases are clear. Heart size is normal. No pericardial or pleural effusion. Mild diffuse wall thickening distal esophagus with some intraluminal fluid which suggests possible reflux. Liver, gallbladder, spleen, pancreas, bilateral adrenal glands and kidneys are normal. There are multiple loops of nonobstructed small bowel which extend through a defect in what appears to be a mesh for prior ventral hernia repair the bowel loops extending between the mass and the more superficial anterior abdominal wall. This appears unchanged dating back to 10/02/2022. Status post right hemicolectomy with ileocolic anastomosis in the left anterior pelvis. No bowel obstruction. Bladder is normal. Small fat-containing bilateral inguinal hernias. No free intraperitoneal gas or fluid. No pathologically enlarged abdominal or pelvic lymphadenopathy. Mild to moderate lumbar and lower thoracic spondylosis. IMPRESSION: 1. No acute intra-abdominal/pelvic process. 2. Stable appearance of multiple loops of nonobstructed small bowel extending through defects and a likely prior ventral hernia mesh repair. Reviewed, dictated and finalized at location A. IMPRESSION: 1. No acute intra-abdominal/pelvic process. 2. Stable appearance of multiple loops of nonobstructed small bowel extending t hrough defects and a likely prior ventral hernia mesh repair.
[2025-05-29 00:15] VITALS: BP 121/85; PULSE 113; RESP 26; TEMP 36.8; O2SAT 100
[2025-05-29 00:27] LABS: Hematocrit 44.0 % (42.0-52.0); Hemoglobin 14.6 g/dL (14.0-18.0); Immature Granulocyte Percent A 0.3 % (0-0.5); Immature Platelet Fraction Pct 7.0 % (0.9-11.2); Lymphocytes Absolute Auto 2.76 K/mm3 (0.9-3.2); Mean Corpuscular HGB Conc 33.2 g/dl (32-36); Mean Corpuscular Hemoglobin 29.4 pg (26-34); Mean Corpuscular Volume 88.7 fl (80-100); Nucleated Red Blood Cells Absolute Auto 0.000 K/mm3 (0.0-0.012); Nucleated Red Blood Cells Perc 0.0 % (0.0-0.2); Platelet Count Result 113 k/mm3 (150-375); Red Blood Count 4.96 M/mm3 (4.6-6.20); White Blood Count 9.6 K/mm3 (4.5-10.0)
[2025-05-29] MEDS: SODIUM CHLORIDE 0.9% IV 1,000 ML 999 ML IV CONT (00:35)
[2025-05-29] MEDS: MORPHINE SULFATE (*CRX) 4 MG/ML INJ IV PUSH ×2 (00:35→02:10)
[2025-05-29] MEDS: ONDANSETRON INJ 4 MG/2 ML VIAL IV PUSH (00:35)
[2025-05-29 00:45] LABS: Alanine Aminotransferase 27 U/L (6-50); Albumin Level 4.9 g/dL (3.5-5.1); Alkaline Phosphatase 87 U/L (38-126); Anion Gap 13 mmol/L (4-12); Aspartate Amino Transferase 34 U/L (17-59); Bilirubin,Total 1.2 mg/dL (0.2-1.3); Blood Urea Nitrogen 24 mg/dL (9-20); Calcium 10.1 mg/dL (8.4-10.2); Carbon Dioxide 23 mmol/L (22-30); Chloride 101 mmol/L (98-107); Estimated CRCL calculation 38 ml/min; Estimated Glomerular Filt Rate 36; Glucose 112 mg/dL (65-110); Lipase 90 U/L (23-300); Potassium 3.7 mmol/L (3.4-5.0); Sodium 137 mmol/L (137-145); Total Protein 9.1 g/dL (6.3-8.2)
[2025-05-29 00:50] LABS: Add Urine Microscopic? NO; Appearance Urine Clear (Clear); Glucose Urine UA Negative (Negative); Leukocyte Esterase Ur Negative LEU/UL (Negative); Nitrate Urine Negative (Negative); Specific Grav Ur 1.008 (1.001-1.035)
--- NOTE | 2025-05-29 00:59 | ED.GENADULT ---
HPI - General Adult General Chief complaint: Abdominal Pain Stated complaint: abd pain Time Seen by Provider: 05/29/25 00:12 History of Present Illness HPI narrative: Patient is a 65-year-old gentleman presents emergency department with chief complaint right-sided abdominal pain. Patient was seen in the emergency department earlier but the patient signed out AMA patient states that he still continues to have pain in the right side reports unable to get comfortable anywhere and reports that he feels as though he needs to urinate patient states that he was able to urinate prior to arrival does report that he recently started on methylphenidate. Related Data Home Medications ?Medication ?Instructions ?Recorded ?Confirmed ?Last Taken ?Type buprenorphine HCl 8 mg sublingual 8 mg sublingual BID 11/16/24 05/03/25 Unknown History tablet methylphenidate HCl 20 mg tablet 20 mg PO BID 11/16/24 05/03/25 Unknown History triamcinolone acetonide 0.1 % 1 applic topical BID 04/03/25 05/03/25 Unknown History topical cream metoprolol tartrate 50 mg tablet 50 mg PO BID 04/04/25 05/03/25 Unknown History Allergies Allergy/AdvReac Type Severity Reaction Status Date / Time No Known Allergies Allergy Verified 05/28/25 19:40 Review of Systems Review of Systems: A 10 system review of systems was completed on the patient and is negative except for what is stated in the HPI. Nursing and ancillary documentation was reviewed. [facility] Past Medical History Medical History History of alcohol abuse has abstained for the past 5 years as of 2024 History of opioid abuse has abstained for the past 5 years as of 2024 Metabolic encephalopathy Occult blood in stools COPD (chronic obstructive pulmonary disease) ADD (attention deficit disorder) Benign essential hypertension Hyperlipidemia Depression GERD (gastroesophageal reflux disease) Skin cancer Arthritis Anxiety Surgical History Surgical History History of cervical spinal surgery Family History Family History Father , Age 59 [place] Heart disease Grandparent , Age 96 of Natural Causes No problems noted. Grandparent , Age 87 Lung Cancer Lung cancer Grandparent , Age 85 Natural Causes No problems noted. Grandparent , Age 83 Leukemia Leukemia Social History Social History Smoking packs per day: 0.5 Smoking cigarettes per day: 10.0 Years smoked: 20 Smoking pack-years: 10.00 Smoking status: Current every day smoker Tobacco type: cigarettes Alcohol intake: former Substance use: never Substance use type: opiates Lack of Transportation: No Lack of Food: Never True Current Housing: I Have Housing Concerned About Future Housing: No Difficulty Paying Gas/Electric Bills: No Difficulty Paying for Meds: No Currently Unemployed: No Education: Bachelor's Degree Difficulty w/ Childcare or Family Care: No Living arrangements: alone Spiritual care concerns: No Exam Narrative: GENERAL: Well-appearing, well-nourished, and in mild acute pain distress. HEAD: Normocephalic, atraumatic. EYES: PERRLA and EOMI. ENT: Nares clear, no rhinorrhea or epistaxis. Mucous membranes moist. NECK: Supple. CHEST: Clear to auscultation. No respiratory distress. HEART: Regular rate and rhythm. No murmur heard. Normal peripheral pulses. ABDOMEN: Soft, nontender, nondistended, normal active bowel sounds. EXTREMITIES: Normal range of motion. No edema. SKIN: Warm, dry, no rash. NEURO: No focal deficits. Alert and oriented x3. PSYCH: Normal mood and affect. Course Vital Signs Vital signs: Vital Signs Temperature 36.8 C 05/29/25 00:15 Pulse Rate 113 H 05/29/25 00:15 Respiratory Rate 26 H 05/29/25 00:15 Blood Pressure 121/85 05/29/25 00:15 Pulse Oximetry 100 05/29/25 00:15 Oxygen Delivery Room Air 05/29/25 00:15 Temperature 36.8 C 05/29/25 00:15 Pulse Rate 97 05/29/25 02:19 Respiratory Rate 20 05/29/25 02:19 Blood Pressure 123/86 05/29/25 02:19 Pulse Oximetry 100 05/29/25 02:19 Oxygen Delivery Room Air 05/29/25 00:15 Medical Decision Making [facility] Narrative Medical decision making narrative: Differential diagnosis includes ureterolithiasis, social 7 techs withdrawal, gastroenteritis, intra-abdominal infection Laboratory studies showed a mild increase in creatinine with BUN of [address] scan of the abdomen pelvis showed no evidence of obstructing stone did show possibility diarrhea developing Vital Signs Vital Signs: Vital Signs Temperature 36.8 C 05/29/25 00:15 Pulse Rate 113 H 05/29/25 00:15 Respiratory Rate 26 H 05/29/25 00:15 Blood Pressure 121/85 05/29/25 00:15 Pulse Oximetry 100 05/29/25 00:15 Oxygen Delivery Room Air 05/29/25 00:15 Temperature 36.8 C 05/29/25 00:15 Pulse Rate 97 05/29/25 02:19 Respiratory Rate 20 05/29/25 02:19 Blood Pressure 123/86 05/29/25 02:19 Pulse Oximetry 100 05/29/25 02:19 Oxygen Delivery Room Air 05/29/25 00:15 Lab Data 05/29/25 00:20 05/29/25 00:19 Labs: Lab Results 05/29/25 05/29/25 05/29/25 Range/Units 00:19 00:20 00:42 WBC 9.6 (4.5-10.0) K/mm3 RBC 4.96 (4.6-6.20) M/mm3 Hgb 14.6 (14.0-18.0) g/dL Hct 44.0 (42.0-52.0) % MCV 88.7 (80-100) fl MCH 29.4 (26-34) pg MCHC 33.2 (32-36) g/dl RDW 14.9 H (11.5-14.5) % Plt Count 113 L (150-375) k/mm3 MPV 11.3 H (7.4-10.4) fl Immature Gran % (Auto) 0.3 (0-0.5) % Neut % (Auto) 58.1 (45.5-73.1) % Lymph % (Auto) 28.8 (18.3-44.2) % [place] % (Auto) 9.7 H (2.6-8.5) % Eos % (Auto) 2.6 (0-4.4) % Baso % (Auto) 0.5 (0.2-1.2) % Lymph # (Auto) 2.76 (0.9-3.2) K/mm3 [place] # (Auto) 0.9 H (0.1-0.6) K/mm3 Eos # (Auto) 0.3 (0-0.3) K/mm3 Baso # (Auto) 0.1 (0.0-0.1) K/mm3 Abs Immat Gran (auto) 0.03 (0.00-0.031) K/mm3 Absolute Neuts (auto) 5.6 (1.3-6.7) K/mm3 Absolute Nucleated RBC 0.000 (0.0-0.012) K/mm3 Nucleated RBC % 0.0 (0.0-0.2) % % Immature Plt Fraction 7.0 (0.9-11.2) % Sodium 137 (137-145) mmol/L Potassium 3.7 (3.4-5.0) mmol/L Chloride 101 (98-107) mmol/L Carbon Dioxide 23 (22-30) mmol/L Anion Gap 13 H (4-12) mmol/L BUN 24 H (9-20) mg/dL Creatinine 1.90 H (0.7-1.3) mg/dL Estim Creat Clear Calc 38 ml/min Estimated GFR 36 L (59 - ) Glucose 112 H (65-110) mg/dL Calcium 10.1 (8.4-10.2) mg/dL Total Bilirubin 1.2 (0.2-1.3) mg/dL AST 34 (17-59) U/L ALT 27 (6-50) U/L Alkaline Phosphatase 87 (38-126) U/L Total Protein 9.1 H (6.3-8.2) g/dL Albumin 4.9 (3.5-5.1) g/dL Lipase 90 (23-300) U/L Urine Color Yellow (Yellow) Urine Appearance Clear (Clear) Urine pH 5.5 (5.0-9.0) Ur Specific [place] 1.008 (1.001-1.035) Urine Protein Negative (Negative) mg/dL Urine Glucose (UA) Negative (Negative) mg/dL Urine Ketones Negative (Negative) mg/dL Ur Blood (Man) Negative (Negative) Urine Nitrate Negative (Negative) Urine Bilirubin Negative (Negative) Urine Urobilinogen 0.2 (<2.0) mg/dL Leukocyte Esterase Rfl Negative (Negative) QUINTON/UL Discharge Plan Discharge Clinical Impression: Abdominal pain Patient Disposition: Home Condition: Stable Instructions: Antibiotic Form, Abdominal Pain (ED) Additional Instructions: Please avoid abusing your Subutex. Please take this only as prescribed If you develop diarrhea he may take Imodium per the package instructions Patient Language: Marshallese Prescriptions: No Action buprenorphine HCl 8 mg tablet, sublingual 8 mg sublingual BID methylphenidate HCl 20 mg tablet 20 mg PO BID duloxetine 60 mg capsule,delayed release(DR/EC) 60 mg PO DAILY Qty: 90 3RF ondansetron HCl 4 mg tablet 4 mg PO BID PRN (Reason: nausea and vomiting) Qty: 20 0RF triamcinolone acetonide 0.1 % cream 1 applic TOPICAL BID metoprolol tartrate 50 mg tablet 50 mg PO BID atorvastatin 20 mg tablet 20 mg PO DAILY Qty: 90 1RF gabapentin 300 mg capsule See Rx Instructions .ROUTE .COMPLEX Qty: 540 1RF Dose Instruction: TAKE 1 CAPSULE BY MOUTH SIX TIMES DAILY Rx Instructions: TAKE 1 CAPSULE BY MOUTH SIX TIMES DAILY losartan 100 mg tablet 100 mg PO DAILY Qty: 90 1RF bupropion HCl [Wellbutrin XL] 300 mg tablet extended release 24 hr 300 mg PO QAM Qty: 90 1RF Follow-up/Referrals: Horace Laguerre DO [Primary Care Provider, Internal Medicine] Time of Disposition: 02:51
[2025-05-29 01:05] VITALS: BP 140/99; PULSE 101; RESP 26; O2SAT 100
--- NOTE | 2025-05-29 02:14 | PC.NURSE ---
Pt reported to this RN that he has been out of his buprenorphine x a few days and is concerned that he could be withdrawing. Pt reports that he is not due for another refill for a few days.
[2025-05-29 02:19] VITALS: BP 123/86; PULSE 97; RESP 20; O2SAT 100
[2025-05-29] MEDS: PROCHLORPERAZINE EDISYLATE 10 MG/2 ML VIAL IV PUSH (02:29)
== END 2025-05-29 02:59 | disposition home or self-care (01) ==
PROVIDERS: Emergency Provider Emergency Medicine; PCP Internal Medicine
DX: R10.9 Unspecified abdominal pain (principal); F10.21 Alcohol dependence, in remission; F11.11 Opioid abuse, in remission; J44.9 Chronic obstructive pulmonary disease, unspecified; F98.8 Other specified behavioral and emotional disorders with onset usually occurring in childhood and adolescence; I10 Essential (primary) hypertension; E78.5 Hyperlipidemia, unspecified; K21.9 Gastro-esophageal reflux disease without esophagitis; F41.8 Other specified anxiety disorders; F17.210 Nicotine dependence, cigarettes, uncomplicated
CPT/HCPCS: 36415; 74176; 80053; 81003; 83690; 85025; 85055; 96361; 96374; 96375; 96376; 99284; J0780; J1200; J2270; J2405; J7030

== ENCOUNTER 2025-06-04 12:05 | Outpatient (CLI) | payer MEDICARE, SELFPAY ==
--- NOTE | ~2025-06-04 | US_ITS ---
Examination: Ultrasound of the retroperitoneum including kidneys and bladder. Clinical History: N28.9 - Disorder of kidney and ureter, unspecified . Comparison: CT abdomen and pelvis 05/29/2025 Findings: Right kidney: 9 cm. Normal echogenicity. No collecting system dilatation. No shadowing calculi. Left kidney: 9 cm. Normal echogenicity. No collecting system dilatation. No shadowing calculi. Urinary bladder: No wall thickening or focal abnormality. Prevoid volume- 150 mL. Post void - 90 ml. Bilateral ureteral jets seen. IMPRESSION: 1. No hydronephrosis. 2. Prevoid bladder volume 150 mL. Post void bladder volume 90 mL. Reviewed, dictated and finalized at location R.
== END 2025-06-04 12:06 | disposition home or self-care (01) ==
LOC: GOSHIMG 12:05
PROVIDERS: PCP Internal Medicine; Visit Provider Nurse Practitioner
DX: N28.9 Disorder of kidney and ureter, unspecified (principal); N17.9 Acute kidney failure, unspecified
CPT/HCPCS: 76770

== ENCOUNTER 2025-06-11 14:39 | Emergency (ER) | payer MEDICARE, SELFPAY ==
--- OUTSIDE RECORDS SUMMARY | 2013-03-13 06:36 | XMS_ITS | Continuity of Care Document ---
Author Organization [facility] Address [address] [facility] [place] [address] Phone Care Team Providers Care Benefits Consultant Name Role Phone Enrique Beckman MD Unavailable Unavailable Allergies, Adverse Reactions, Alerts Substance Reaction Status Criticality No Known Allergies Active No Inform ation Medications Medication Instructions Dosage Effective Dates (start - stop) Status Comments hydrocodone-acetam inophen 7.5 mg-325 mg tablet take 1 tablet by oral route 3 times every day as needed for pain 1 tablet - Active avoid driving or operate machines Lipitor 40 mg tablet take 1 tablet (40MG) by oral route every day 40 MG - Active Procedures Procedure Date OFFICE/OUTPATIENT VISIT, EST OFFICE/OUTPATIENT VISIT, EST OFFICE/OUTPATIENT VISIT, EST OFFICE/OUTPATIENT VISIT, EST OFFICE/OUTPATIENT VISIT, EST OFFICE/OUTPATIENT VISIT, EST OFFICE/OUTPATIENT VISIT, EST PREV VISIT, EST, AGE 40-64 OFFICE/OUTPATIENT VISIT, EST OFFICE/OUTPATIENT VISIT, EST OFFICE/OUTPATIENT VISIT, EST OFFICE/OUTPATIENT VISIT, EST OFFICE/OUTPATIENT VISIT, EST OFFICE/OUTPATIENT VISIT, EST Advance Directives Directive Yes / No Effective Date File Name No Information Encounters Encounter Description Practice Location Reason(s) For Visit Diagnoses Date Provider Providers Copied on Encounter [facility], [facility] [place], [address], [place] tel:[phone] [facility] No Information [address], [place], [place], [address] , [place]. tel:[phone] Referring Provider: Enrique Beckman, [address], [place], [place], [address]. tel:[phone] OFFICE/OUTPA TIENT VISIT, [facility], [address], [place], [place], [address], [place] tel:[phone] [facility] back pain (chief complaint) Lumbago 3 Rk [address]unez. [address], [address], [place], [place], [address] , [place]. tel:[phone] Referring Provider: Enrique Beckman, [address], [place], [place], [address]. tel:[phone] OFFICE/OUTPA TIENT VISIT, [facility], [address], [place], [place], [address], [place] tel:[phone] [facility] back pain (chief complaint)a nxiety (chief complaint) Dietary surveillance and counselingGenerali zed anxiety disorderLumbago 3 Rk Nunez. [address], [place], [place], [address] , [place]. tel:[phone] Referring Provider: Miles Lewis [address], [place], [place], [address]. tel:[phone] OFFICE/OUTPA TIENT VISIT, [facility], [address], [place], [place], [address], [place] tel:[phone] [facility] sore throat (chief complaint)a nxiety (chief complaint)b ack pain (chief complaint) Acute upper respiratory infections of other multiple sitesEnlargement of lymph nodesLumbagoGenera lized anxiety disorder 3 R[address], [place], [place], [address] , [place]. tel:[phone] Referring Provider: Enrique Beckman, [address], [place], [place], [address]. tel:[phone] OFFICE/OUTPA TIENT VISIT, [facility], [address], [place], [place], [address], [place] [phone] [facility] chronic pain (chief complaint)a nxiety (chief complaint)a bscess (chief complaint) Dietary surveillance and counselingCellulit is and abscess of other specified sitesLumbagoMajor depressive affective disorder, single episode, mild degree Dec- 3 Rk Nunez[address], [place], [place], [address] , [place]. tel:[phone] Referring Provider: Miles Lewis [address], [place], [place], [address]. tel:[phone] OFFICE/OUTPA TIENT VISIT, [facility], [address], [place], [place], [address], [place] tel:[phone] [facility] cellulitis (chief complaint) Dietary surveillance and counselingCellulit is and abscess of upper arm and forearm Dec- 3 R[address] Nunez[address], [place], [place], [address] , [place]. tel:[phone] Referring Provider: Miles Lewis [address], [place], [place], [address]. tel:[phone] OFFICE/OUTPA TIENT VISIT, [facility], [address], [place], [place], [address], [place] [phone] [facility] chronic pain (chief complaint)a nxiety (chief complaint) Dietary surveillance and counselingHyperten sarai, UnspecifiedCHRONIC PAIN NECGeneralized anxiety disorder Nov- 3 Rk Nunez[address], [address], [place], [place], [address] , [place]. tel:[phone] Referring Provider: Miles Lewis [address], [place], [place], [address]. tel:[phone] OFFICE/OUTPA TIENT VISIT, EST [facility], [address], [place], [place], [address], [place] tel:[phone] [facility] chronic pain (chief complaint)a nxiety (chief complaint) Dietary surveillance and counselingHyperten sarai, UnspecifiedCHRONIC PAIN NECGeneralized anxiety disorder 3 [address], [place], [place], [address] , [place]. tel:[phone] Referring Provider: Enrique Beckman, [address], [place], [place], [address]. tel:[phone] PREV VISIT, EST, AGE 40-64 [facility], [address], [place], [place], [address], [place] tel:[phone] [facility] Physical (chief complaint) Dietary surveillance and counselingRoutine Medical ExamHypertension, UnspecifiedOther and unspecified hyperlipidemiaMajo r depressive affective disorder, single episode, mild degreeRoutine Medical Exam 3 R[address], [place], [place], [address] , [place]. [phone] Referring Provider: Miles Lewis [address], [place], [place], [address]. tel:[phone] OFFICE/OUTPA TIENT VISIT, [facility], [address], [place], [place], [address], [place] tel:[phone] [facility] anxiety (chief complaint)c hronic pain (chief complaint) Dietary surveillance and counselingCHRONIC PAIN NECMajor depressive affective disorder, single episode, mild degree 2 [address], [place], [place], [address] , [place]. tel:[phone] Referring Provider: Miles Lewis [address], [place], [place], [address]. tel:[phone] OFFICE/OUTPA TIENT VISIT, [facility], [address], [place], [place], [address], [place] tel:[phone] [facility] chronic pain (chief complaint)d epression/a nixety (chief complaint) Dietary surveillance and counselingCHRONIC PAIN NECMajor depressive affective disorder, single episode, mild degreeOther and unspecified hyperlipidemia 2 Rk Washburn [address], [place], [place], [address] , [place]. [phone] Referring Provider: Miles Lewis [address], [place], [place], [address]. tel:[phone] OFFICE/OUTPA TIENT VISIT, [facility], [address], [place], [place], [address], [place] tel:[phone] [facility] epilepsy (chief complaint)a nxiety (chief complaint)c hronic pain (chief complaint) Epilepsy, unspecified, without mention of intractable epilepsyCHRONIC PAIN NECGeneralized anxiety disorder 2 Rk Washburn [address], [place], [place], [address] , [place]. tel:[phone] Referring Provider: Miles Lewis [address], [place], [place], [address]. tel:[phone] OFFICE/OUTPA TIENT VISIT, [facility], [address], [place], [place], [address], [place] tel:[phone] [facility] cough (chief complaint)d ry spot on hand (chief complaint)b ack pain (chief complaint) Dietary surveillance and counselingBronchit is, AcuteLumbagoRash and other nonspecific skin eruption 2 Rk Washburn [address], [place], [place], [address] , [place]. tel:[phone] Referring Provider: Miles Lewis [address], [place], [place], [address]. tel:[phone] OFFICE/OUTPA TIENT VISIT, [facility], [address], [place], [place], [address], [place] tel:[phone] [facility] chronic pain (chief complaint)d epression (chief complaint) Dietary surveillance and counselingCHRONIC PAIN NECGeneralized anxiety disorder 2 [address], [address] , . tel:[phone] Referring Provider: Miles Lewis [facility], [place], [place], [address]. tel:[phone] Family History Family Member Type Diagnosis Age At Onset Mother Problem (finding) Alive and well Father Problem (finding) CHF Brother Problem (finding) Back Pain Payers Payer name Insurance type Covered constitution party ID Authoriza tion(s) No Information Social History Type Description Quantity Date Captured Comments Sex Male Smoking Status No Information Chief Complaint And Reason For Visit No Information Plan Of Treatment Date Type Action Status Goal Tobacco cessation counseling completed Goal Tobacco cessation counseling completed Goal Tobacco cessation counseling completed Goal Tobacco cessation counseling completed Goal Tobacco cessation counseling completed Goal Tobacco cessation counseling completed Goal Tobacco cessation counseling completed Goal Tobacco cessation counseling completed Goal Tobacco cessation counseling completed Goal Tobacco cessation counseling completed Referral Ordered: Referral: Plastic Surg. Evaluate and treat. ordered Referral Ordered: MRI BRAIN W/O & W/DYE ordered History Of Present Illness Encounter Date Complaint History Of Prese nt Illness No Information Instructions Date Instruction Additional Infor duglas Dietary counseling Related to Di etary surveillance counseling Decrease caloric intake Related to Dietary surveillance counseling Dietary counseling Related to Di etary surveillance counseling Decrease caloric intake Related to Dietary surveillance counseling Dietary counseling Related to Di etary surveillance counseling Decrease caloric intake Related to Dietary surveillance counseling Dietary counseling Related to Di etary surveillance counseling Decrease caloric intake Related to Dietary surveillance counseling Dietary counseling Related to Di etary surveillance counseling Decrease caloric intake Related to Dietary surveillance counseling Dietary counseling Related to Di etary surveillance counseling Decrease caloric intake Related to Dietary surveillance counseling Dietary counseling Related to Di etary surveillance counseling Decrease caloric intake Related to Dietary surveillance counseling Dietary counseling Related to Di etary surveillance counseling Decrease caloric intake Related to Dietary surveillance counseling Dietary counseling Related to Di etary surveillance counseling Decrease caloric intake Related to Dietary surveillance counseling Dietary counseling Related to Di etary surveillance counseling Decrease caloric intake Related to Dietary surveillance counseling Assessments Type Assessment Date No Information
--- OUTSIDE RECORDS SUMMARY | 2013-03-13 06:36 | XMS_ITS | Continuity of Care Document ---
Author Organization [facility] Address [address] [place] [address] Phone Care Team Providers Care Overlock Sleeve Setter Name Role Phone Enrique Beckman MD Unavailable [...] Diagnoses Date Provider Providers Copied on Encounter [facility] [place], [facility] [place], [address], [place] tel:[phone] [facility] [place] No Information [address], [place], [place], [address] , [place]. tel:[phone] Referring Provider: Enrique Beckman, [address], [place], [place], [address]. tel:[phone] OFFICE/OUTPA TIENT VISIT, [facility], [address], [place], [place], [address], [place] tel:[phone] [facility] [place] back pain (chief complaint) Lumbago 3 R[address], [place], [place], [address] , [place]. tel:[phone] Referring Provider: Enrique Beckman, [address], [place], [place], [address]. tel:[phone] OFFICE/OUTPA TIENT VISIT, [facility], [address], [place], [place], [address], [place] tel:[phone] [facility] [place] back pain (chief complaint)a nxiety (chief complaint) Dietary surveillance and counselingGenerali zed anxiety disorderLumbago 3 Rk Nunez. [address], [place], [place], [address] , [place]. tel:[phone] Referring Provider: Miles Lewis [address], [place], [place], [address]. tel:[phone] OFFICE/OUTPA TIENT VISIT, [facility], [address], [place], [place], [address], [place] tel:[phone] [facility] [place] sore throat (chief complaint)a nxiety (chief complaint)b ack pain (chief complaint) Acute upper respiratory infections of other multiple sitesEnlargement of lymph nodesLumbagoGenera lized anxiety disorder 3 Rk [address], [place], [place], [address] , [place]. tel:[phone] Referring Provider: Enrique Beckman, [address], [place], [place], [address]. tel:[phone] OFFICE/OUTPA TIENT VISIT, [facility], [address], [place], [place], [address], [place] [phone] [facility] [place] chronic pain (chief complaint)a nxiety (chief complaint)a bscess (chief complaint) Dietary surveillance and counselingCellulit is and abscess of other specified sitesLumbagoMajor depressive affective disorder, single episode, mild degree Dec- 3 Rk Nunez[address], [place], [place], [address] , [place]. tel:[phone] Referring Provider: Miles Lewis [address], [place], [place], [address]. tel:[phone] OFFICE/OUTPA TIENT VISIT, [facility], [address], [place], [place], [address], [place] tel:[phone] [facility] [place] cellulitis (chief complaint) Dietary surveillance and counselingCellulit is and abscess of upper arm and forearm Dec- 3 R[address], [place], [place], [address] , [place]. tel:[phone] Referring Provider: Miles Lewis [address], [place], [place], [address]. tel:[phone] OFFICE/OUTPA TIENT VISIT, [facility], [address], [place], [place], [address], [place] [phone] [facility] [place] chronic pain (chief complaint)a nxiety (chief complaint) Dietary surveillance and counselingHyperten sarai, UnspecifiedCHRONIC PAIN NECGeneralized anxiety disorder Nov- 3 Rk [address]unez[address], [place], [place], [address] , [place]. tel:[phone] Referring Provider: Miles Lewis [address], [place], [place], [address]. tel:[phone] OFFICE/OUTPA TIENT VISIT, EST [facility] [place], [address], [place], [place], [address], [place] tel:[phone] [facility] chronic pain (chief complaint)a nxiety (chief complaint) Dietary surveillance and counselingHyperten sarai, UnspecifiedCHRONIC PAIN NECGeneralized anxiety disorder 3 R[address], [place], [place], [address] , [place]. tel:[phone] Referring Provider: Enrique Beckman, [address], [place], [place], [address]. tel:[phone] PREV VISIT, EST, AGE 40-64 [facility] [place], [address], [place], [place], [address], [place] tel:[phone] [facility] [place] Physical (chief complaint) Dietary surveillance and counselingRoutine Medical ExamHypertension, UnspecifiedOther and unspecified hyperlipidemiaMajo r depressive affective disorder, single episode, mild degreeRoutine Medical Exam 3 Rk Nunez[address], [address], [place], [place], [address] , [place]. [phone] Referring Provider: Miles Lewis [address], [place], [place], [address]. tel:[phone] OFFICE/OUTPA TIENT VISIT, [facility], [address], [place], [place], [address], [place] tel:[phone] [facility] [place] anxiety (chief complaint)c hronic pain (chief complaint) Dietary surveillance and counselingCHRONIC PAIN NECMajor depressive affective disorder, single episode, mild degree 2 Rk Nunez[address], [place], [place], [address] , [place]. tel:[phone] Referring Provider: Miles Lewis [address], [place], [place], [address]. tel:[phone] OFFICE/OUTPA TIENT VISIT, [facility], [address], [place], [place], [address], [place] tel:[phone] [facility] [place] chronic pain (chief complaint)d epression/a nixety (chief complaint) Dietary surveillance and counselingCHRONIC PAIN NECMajor depressive affective disorder, single episode, mild degreeOther and unspecified hyperlipidemia 2 Rk Washburn [address], [place], [place], [address] , [place]. [phone] Referring Provider: Miles Leiws [address], [place], [place], [address]. tel:[phone] OFFICE/OUTPA TIENT VISIT, [facility], [address], [place], [place], [address], [place] tel:[phone] [facility] [place] epilepsy (chief complaint)a nxiety (chief complaint)c hronic pain (chief complaint) Epilepsy, unspecified, without mention of intractable epilepsyCHRONIC PAIN NECGeneralized anxiety disorder 2 Rk Washburn [address], [place], [place], [address] , [place]. tel:[phone] Referring Provider: Miles Lewis [address], [place], [place], [address]. tel:[phone] OFFICE/OUTPA TIENT VISIT, [facility], [address], [place], [place], [address], [place] tel:[phone] [facility] [place] cough (chief complaint)d ry spot on hand (chief complaint)b ack pain (chief complaint) Dietary surveillance and counselingBronchit is, AcuteLumbagoRash and other nonspecific skin eruption 2 Rk Washburn [address], [place], [place], [address] , [place]. tel:[phone] Referring Provider: Miles Lewis [address], [place], [place], [address]. tel:[phone] OFFICE/OUTPA TIENT VISIT, [facility], [address], [place], [place], [address], [place] tel:[phone] [facility] chronic pain (chief complaint)d epression (chief complaint) Dietary surveillance and counselingCHRONIC PAIN NECGeneralized anxiety disorder 2 R[address], [place], [address] , . tel:[phone] Referring Provider: Miles [address], [place], [place], [address]. tel:[phone] Family History Family Member Type Diagnosis Age At Onset Mother Problem (finding) Alive and well Father Problem (finding) CHF Brother Problem (finding) Back Pain Payers Payer name Insurance type Covered libertarian ID Authoriza tion(s) No Information Social History [...] No Information Instructions Date Instruction Additional Infor mation Decrease caloric intake Related to Dietary surveillance counseling Dietary counseling Related to Di etary surveillance counseling Dietary counseling Related to Di etary surveillance counseling Decrease caloric intake Related to Dietary surveillance counseling Decrease caloric intake Related to Dietary surveillance counseling Dietary counseling Related to Di etary surveillance counseling Decrease caloric intake Related to Dietary surveillance counseling Dietary counseling Related to Di etary surveillance counseling Dietary counseling Related to Di etary surveillance counseling Decrease caloric intake Related to Dietary surveillance counseling Dietary counseling Related to Di etary surveillance counseling Decrease caloric intake Related to Dietary surveillance counseling Decrease caloric intake Related to Dietary surveillance counseling Dietary counseling Related to Di etary surveillance counseling Dietary counseling Related to Di etary surveillance counseling Decrease caloric intake Related to Dietary surveillance counseling Decrease caloric intake Related to Dietary surveillance counseling Dietary counseling Related to Di etary surveillance counseling Dietary counseling Related to Di etary surveillance counseling Decrease caloric intake Related to Dietary surveillance counseling Assessments Type Assessment Date No Information
[2025-06-11] VITALS (21 sets, daily range): BP systolic 93–135; BP diastolic 40–80; PULSE 79–89; RESP 14–23; TEMP 36.9; O2SAT 91–100
--- NOTE | ~2025-06-11 | XR_ITS ---
EXAMINATION: XR chest 1V portable COMPARISON: No comparisons available. HISTORY: cough WITH DIZZINESS AND WEAKNESS FINDINGS: Mild pulmonary venous congestion. No pneumothorax. Moderate cardiomegaly. Mediastinal and hilar contours are within normal limits. Bony thorax no acute abnormality. Miscellaneous: A tiny radiopaque foreign body overlies the trachea, clinical correlation required. Impression: CHF. Please see above Reviewed, dictated and finalized at location A. Impression: CHF. Please see above
--- NOTE | ~2025-06-11 | CT_ITS ---
EXAMINATION: CTA brain carotid DATE: 06/11/2025 19:41 INDICATION: Numbness. TECHNIQUE: Computed tomographic angiography (CTA) of the head was performed without and with 100 mL Omnipaque-350 intravenous contrast. CTA of the neck was performed with intravenous contrast. Automated exposure control and iterative reconstruction technique were employed. The dose-length product was 1909.20 mGy- cm. Maximum intensity projection and volume rendered 3D-reconstructions were created by the technologist on a separate workstation. COMPARISON: Head CT 04/03/2025, brain MRI 04/06/2025 FINDINGS: HEAD CTA: There are scattered areas of low attenuation in the cerebral white matter. There is no intracranial hemorrhage, acute infarction, or abnormal intracranial mass lesion. The ventricles are normal in size. There is mucosal thickening in the paranasal sinuses. The orbits are normal. The mastoid air cells are normal. The vertebral arteries are codominant. There is no significant stenosis of basilar artery or the posterior cerebral arteries. There is no significant stenosis of the intracranial internal carotid arteries or anterior or middle cerebral arteries. Anterior communicating artery is normal. The posterior communicating arteries are normal. There is no aneurysm. NECK CTA: There are no pathologically enlarged lymph nodes. There is no significant stenosis of the vertebral arteries. There is plaque in the proximal internal carotid arteries. There is 17% stenosis of the proximal right internal carotid artery relative to normal distal artery lumen diameter (NASCET criteria). There is 26% stenosis of the proximal left internal carotid artery relative to normal distal artery lumen diameter. There are changes of disc replacement at C5-C6 and C6-C7. There is moderate cervical spondylosis. IMPRESSION: 1. Stable mild nonspecific cerebral white matter disease, which likely represents chronic small vessel ischemic disease. 2. No aneurysm or significant intracranial arterial stenosis. 3. 17% stenosis of the proximal right internal carotid artery relative to normal distal artery lumen diameter (NASCET criteria). 4. 26% stenosis of the proximal left internal carotid artery relative to normal distal artery lumen diameter. Reviewed, dictated and finalized at location K. IMPRESSION: 1. Stable mild nonspecific cerebral white matter disease, which likely represen ts chronic small vessel ischemic disease. 2. No aneurysm or significant intracranial arterial stenosis. 3. 17% stenosis of the proximal right internal carotid artery relative to lily l distal artery lumen diameter (NASCET criteria). 4. 26% stenosis of the proximal left internal carotid artery relative to normal distal artery lumen diameter.
--- NOTE | 2025-06-11 16:29 | ECG_ITS ---
Test Date: 2025-06-11 17:23:23 Measurements Intervals [place] Rate: 78 P: -15 NC: 173 QRS: -10 QRSD: 96 T: 27 QT: 382 QTc: 438 Interpretive Statements SINUS RHYTHM INDETERMINATE AXIS INCOMPLETE RIGHT BUNDLE BRANCH BLOCK [90+ ms QRS DURATION, TERMINAL R IN V1/V2, 40+ ms S IN I/aVL/V4/V5/V6] ABNORMAL ECG Compared to ECG 04/03/2025 10:31:20 Sinus tachycardia no longer present Electronically Signed On 06-12-2025 08:06:48 CDT by Nickolas Hoang M.D.
--- NOTE | 2025-06-11 16:36 | ED_ITS ---
HPI - General Adult General Chief complaint: Unspecified <Michelle Moore January, - Last Filed: 06/11/25 19:31> Stated complaint: leg spasm <Michelle Moore January, - Last Filed: 06/11/25 19:31> Time Seen by Provider: 06/11/25 15:46 <Michelle Moore January, - Last Filed: 06/11/25 19:31> History of Present Illness HPI narrative: Von Shirley is a 65-year-old male with past medical history of hypertension, COPD, smoker who presents today with reports 3 days ago waking up at around 9:00 a.m. and having numbness to his right upper arm and his right leg he states that this lasted about an hour and improved. He states he does not have any more numbness or tingling to his extremities he does not have a headache denies ever having any vision changes or deficits. He states that since he feels a little foggy and maybe a little bit out of it. He states he does have a little bit of a cough but this is about the same with his smoking. Denies chest pain denies shortness of breath denies vomiting denies abdominal pain or any other concerns. <Michelle Moore January, - Last Filed: 06/11/25 19:31> Related Data Home medications: Home Medications ?Medication ?Instructions ?Recorded ?Confirmed ?Last Taken ?Type buprenorphine HCl 8 mg sublingual 8 mg sublingual BID 11/16/24 06/07/25 Unknown History tablet triamcinolone acetonide 0.1 % 1 applic topical BID 05/2106/07/25 Unknown History topical cream metoprolol tartrate 50 mg tablet 50 mg PO BID 04/04/25 06/07/25 Unknown History <Michelle Moore January, - Last Filed: 06/11/25 19:31> Allergies/adverse reactions: Allergies Allergy/AdvReac Type Severity Reaction Status Date / Time No Known Allergies Allergy Verified 06/11/25 14:47 <Michelle Moore January, - Last Filed: 06/11/25 19:31> Review of Systems 2 Review of Systems: All systems reviewed & are unremarkable except as noted in HPI and below <Michelle Moore January, - Last Filed: 06/11/25 19:31> PMFSH Past Medical History Medical History: Medical History History of alcohol abuse has abstained for the past 5 years as of 2024 History of opioid abuse has abstained for the past 5 years as of 2024 Metabolic encephalopathy Occult blood in stools COPD (chronic obstructive pulmonary disease) ADD (attention deficit disorder) Benign essential hypertension Hyperlipidemia Depression GERD (gastroesophageal reflux disease) Skin cancer Arthritis Anxiety <Michelle Saavedra APRN - Last Filed: 06/11/25 19:31> Surgical History Surgical History: Surgical History History of cervical spinal surgery <Michelle Saavedra APRN - Last Filed: 06/11/25 19:31> Family History Family History: Family History Father , Age 59 HI Heart disease Grandparent , Age 96 of Natural Causes No problems noted. Grandparent , Age 87 Lung Cancer Lung cancer Grandparent , Age 85 Natural Causes No problems noted. Grandparent , Age 83 Leukemia Leukemia <Michelle Saavedra APRN - Last Filed: 06/11/25 19:31> Social History Social History: Social History Smoking packs per day: 0.5 Smoking cigarettes per day: 10.0 Years smoked: 20 Smoking pack-years: 10.00 Smoking status: Current every day smoker Tobacco type: cigarettes Alcohol intake: former Substance use: never Substance use type: opiates Lack of Transportation: No Lack of Food: Never True Current Housing: I Have Housing Concerned About Future Housing: No Difficulty Paying Gas/Electric Bills: No Difficulty Paying for Meds: No Currently Unemployed: No Education: Bachelor's Degree Difficulty w/ Childcare or Family Care: No Living arrangements: alone Spiritual care concerns: No <Michelle Saavedra APRN - Last Filed: 06/11/25 19:31> Exam 2 Narrative: GENERAL: Well-appearing, well-nourished, and in no acute distress. HEAD: Normocephalic, atraumatic. EYES: PERRLA and EOMI. ENT: Nares clear, no rhinorrhea or epistaxis. Mucous membranes moist. Oropharynx without tonsillar hypertrophy exudate or other lesions. NECK: Supple. No adenopathy or masses. No carotid bruits or JVD CHEST: Clear to auscultation. No respiratory distress. No wheezes rales or rhonchi HEART: Regular rate and rhythm. No murmur heard. Normal peripheral pulses. ABDOMEN: Soft, nontender, nondistended, normal active bowel sounds. EXTREMITIES: Normal range of motion. SKIN: Warm, dry, no rash. NEURO: No focal deficits. Alert and oriented x3. PSYCH: Normal mood and affect. <Michelle Saavedra, PRODUCT SAFETY HEAD - Last Filed: 06/11/25 19:31> Course Vital Signs Vital signs: Vital Signs Temperature 36.9 C 06/11/25 14:43 Pulse Rate 87 06/11/25 14:43 Respiratory Rate 18 06/11/25 14:43 Blood Pressure 111/59 L 06/11/25 14:43 Pulse Oximetry 96 06/11/25 14:43 Oxygen Delivery Room Air 06/11/25 14:43 Temperature 36.9 C 06/11/25 14:43 Pulse Rate 85 06/11/25 20:00 Respiratory Rate 16 06/11/25 20:00 Blood Pressure 124/75 06/11/25 20:00 Pulse Oximetry 93 06/11/25 19:46 Oxygen Delivery Room Air 06/11/25 14:43 <Michelle Saavedra, PRODUCT SAFETY HEAD - Last Filed: 06/11/25 19:31> Vital Signs Temperature 36.9 C 06/11/25 14:43 Pulse Rate 87 06/11/25 14:43 Respiratory Rate 18 06/11/25 14:43 Blood Pressure 111/59 L 06/11/25 14:43 Pulse Oximetry 96 06/11/25 14:43 Oxygen Delivery Room Air 06/11/25 14:43 Temperature 36.9 C 06/11/25 14:43 Pulse Rate 85 06/11/25 20:00 Respiratory Rate 16 06/11/25 20:00 Blood Pressure 124/75 06/11/25 20:00 Pulse Oximetry 93 06/11/25 19:46 Oxygen Delivery Room Air 06/11/25 14:43 <Catie Rai, PRODUCT SAFETY HEAD - Last Filed: 06/11/25 20:40> Medical Decision Making MDM Narrative Medical decision making narrative: 65-year-old male presents with reports of having some numbness tingling to his right arm and his right leg 3 days ago that he woke up with 9:00 a.m. he states he could not walk because of this and the lasted about an hour and got better. He states that he was feeling better but now he just feels kind of out of it after that happened. He denies any other symptoms or concerns just wanted to get checked out based on what happened 3 days ago. Concern for TIA, CVA electrolyte imbalance, dehydration failure to thrive, pneumonia <Michelle Saavedra, PRODUCT SAFETY HEAD - Last Filed: 06/11/25 19:31> 65-year-old male presents with reports of having some numbness tingling to his right arm and his right leg 3 days ago that he woke up with 9:00 a.m. he states he could not walk because of this and the lasted about an hour and got better. He states that he was feeling better but now he just feels kind of out of it after that happened. He denies any other symptoms or concerns just wanted to get checked out based on what happened 3 days ago. Concern for TIA, CVA electrolyte imbalance, dehydration failure to thrive, pneumonia Patient Education/Shared MDM: Results of lab work and imaging shared with patient. He continues to deny any neurological symptoms since he has been in the ER. Patient strongly advised to follow-up with Neurology and his PCP as soon as possible. He will not be discharged home with any new prescriptions. Strict return precautions provided. Patient verbalized understanding and is in agreement with plan. Vital signs stable at time of discharge. All questions answered. <Catie Rai, PRODUCT SAFETY HEAD - Last Filed: 06/11/25 20:40> Medical Records Medical records reviewed: Yes I reviewed the external patient's medical records. <Michelle Saavedra APRN - Last Filed: 06/11/25 19:31> Vital Signs Vital Signs: Vital Signs Temperature 36.9 C 06/11/25 14:43 Pulse Rate 87 06/11/25 14:43 Respiratory Rate 18 06/11/25 14:43 Blood Pressure 111/59 L 06/11/25 14:43 Pulse Oximetry 96 06/11/25 14:43 Oxygen Delivery Room Air 06/11/25 14:43 Temperature 36.9 C 06/11/25 14:43 Pulse Rate 85 06/11/25 20:00 Respiratory Rate 16 06/11/25 20:00 Blood Pressure 124/75 06/11/25 20:00 Pulse Oximetry 93 06/11/25 19:46 Oxygen Delivery Room Air 06/11/25 14:43 <Michelle Saavedra, PRODUCT SAFETY HEAD - Last Filed: 06/11/25 19:31> Vital Signs Temperature 36.9 C 06/11/25 14:43 Pulse Rate 87 06/11/25 14:43 Respiratory Rate 18 06/11/25 14:43 Blood Pressure 111/59 L 06/11/25 14:43 Pulse Oximetry 96 06/11/25 14:43 Oxygen Delivery Room Air 06/11/25 14:43 Temperature 36.9 C 06/11/25 14:43 Pulse Rate 85 06/11/25 20:00 Respiratory Rate 16 06/11/25 20:00 Blood Pressure 124/75 06/11/25 20:00 Pulse Oximetry 93 06/11/25 19:46 Oxygen Delivery Room Air 06/11/25 14:43 <Catie Rai, PRODUCT SAFETY HEAD - Last Filed: 06/11/25 20:40> Lab Data Lab results reviewed: Yes I reviewed the patient's lab results. <Catie Rai, PRODUCT SAFETY HEAD - Last Filed: 06/11/25 20:40> Result diagrams: 06/11/25 16:57 06/11/25 16:57 <Michelle Saavedra, PRODUCT SAFETY HEAD - Last Filed: 06/11/25 19:31> Labs: Lab Results 06/11/25 06/11/25 Range/Units 16:57 19:53 WBC 8.0 (4.5-10.0) K/mm3 RBC 3.85 L (4.6-6.20) M/mm3 Hgb 11.5 L D (14.0-18.0) g/dL Hct 35.8 L (42.0-52.0) % MCV 93.0 (80-100) fl MCH 29.9 (26-34) pg MCHC 32.1 (32-36) g/dl RDW 15.4 H (11.5-14.5) % Plt Count 57 L (150-375) k/mm3 MPV 11.5 H (7.4-10.4) fl Immature Gran % (Auto) 0.3 (0-0.5) % Neut % (Auto) 70.5 (45.5-73.1) % Lymph % (Auto) 18.4 (18.3-44.2) % [place] % (Auto) 7.5 (2.6-8.5) % Eos % (Auto) 2.9 (0-4.4) % Baso % (Auto) 0.4 (0.2-1.2) % Lymph # (Auto) 1.47 (0.9-3.2) K/mm3 [place] # (Auto) 0.6 (0.1-0.6) K/mm3 Eos # (Auto) 0.2 (0-0.3) K/mm3 Baso # (Auto) 0.0 (0.0-0.1) K/mm3 Abs Immat Gran (auto) 0.02 (0.00-0.031) K/mm3 Absolute Neuts (auto) 5.6 (1.3-6.7) K/mm3 Absolute Nucleated RBC 0.000 (0.0-0.012) K/mm3 Nucleated RBC % 0.0 (0.0-0.2) % % Immature Plt Fraction 8.4 (0.9-11.2) % PT 16.0 H (11.1-14.7) Seconds INR 1.3 APTT 33.7 (22.3-36.8) Seconds Sodium 140 (137-145) mmol/L Potassium 4.7 (3.4-5.0) mmol/L Chloride 108 H (98-107) mmol/L Carbon Dioxide 25 (22-30) mmol/L Anion Gap 7 (4-12) mmol/L BUN 30 H (9-20) mg/dL Creatinine 1.65 H (0.7-1.3) mg/dL Estim Creat Clear Calc 50 ml/min Estimated GFR 42 L (59 - ) Glucose 121 H (65-110) mg/dL Calcium 8.2 L (8.4-10.2) mg/dL Total Bilirubin 0.6 (0.2-1.3) mg/dL AST 24 (17-59) U/L ALT 19 (6-50) U/L Alkaline Phosphatase 63 (38-126) U/L Troponin I < 0.012 (0.000-0.034) ng/mL NT-Pro-B Natriuret Pep 906 H (19.9-100) pg/mL Total Protein 7.4 (6.3-8.2) g/dL Albumin 4.1 (3.5-5.1) g/dL Urine Color Yellow (Yellow) Urine Appearance Clear (Clear) Urine pH 6.0 (5.0-9.0) Ur Specific [place] 1.025 (1.001-1.035) Urine Protein 1+ H (Negative) mg/dL Urine Glucose (UA) Negative (Negative) mg/dL Urine Ketones Negative (Negative) mg/dL Ur Blood (Man) Negative (Negative) Urine Nitrate Negative (Negative) Urine Bilirubin Negative (Negative) Urine Urobilinogen 1.0 (<2.0) mg/dL Leukocyte Esterase Rfl Negative (Negative) QUINTON/UL Urine RBC 0-2 (0-2) /hpf Urine WBC 0-5 (0-3) /hpf Ur Squamous Epith Cells None seen (Few) /hpf Urine Bacteria None seen /hpf Urine Casts 0-2 Ethyl Alcohol < 10 (<10) mg/dL <Michelle Saavedra, PRODUCT SAFETY HEAD - Last Filed: 06/11/25 19:31> Lab Results 06/11/25 06/11/25 Range/Units 16:57 19:53 WBC 8.0 (4.5-10.0) K/mm3 RBC 3.85 L (4.6-6.20) M/mm3 Hgb 11.5 L D (14.0-18.0) g/dL Hct 35.8 L (42.0-52.0) % MCV 93.0 (80-100) fl MCH 29.9 (26-34) pg MCHC 32.1 (32-36) g/dl RDW 15.4 H (11.5-14.5) % Plt Count 57 L (150-375) k/mm3 MPV 11.5 H (7.4-10.4) fl Immature Gran % (Auto) 0.3 (0-0.5) % Neut % (Auto) 70.5 (45.5-73.1) % Lymph % (Auto) 18.4 (18.3-44.2) % [place] % (Auto) 7.5 (2.6-8.5) % Eos % (Auto) 2.9 (0-4.4) % Baso % (Auto) 0.4 (0.2-1.2) % Lymph # (Auto) 1.47 (0.9-3.2) K/mm3 [place] # (Auto) 0.6 (0.1-0.6) K/mm3 Eos # (Auto) 0.2 (0-0.3) K/mm3 Baso # (Auto) 0.0 (0.0-0.1) K/mm3 Abs Immat Gran (auto) 0.02 (0.00-0.031) K/mm3 Absolute Neuts (auto) 5.6 (1.3-6.7) K/mm3 Absolute Nucleated RBC 0.000 (0.0-0.012) K/mm3 Nucleated RBC % 0.0 (0.0-0.2) % % Immature Plt Fraction 8.4 (0.9-11.2) % PT 16.0 H (11.1-14.7) Seconds INR 1.3 APTT 33.7 (22.3-36.8) Seconds Sodium 140 (137-145) mmol/L Potassium 4.7 (3.4-5.0) mmol/L Chloride 108 H (98-107) mmol/L Carbon Dioxide 25 (22-30) mmol/L Anion Gap 7 (4-12) mmol/L BUN 30 H (9-20) mg/dL Creatinine 1.65 H (0.7-1.3) mg/dL Estim Creat Clear Calc 50 ml/min Estimated GFR 42 L (59 - ) Glucose 121 H (65-110) mg/dL Calcium 8.2 L (8.4-10.2) mg/dL Total Bilirubin 0.6 (0.2-1.3) mg/dL AST 24 (17-59) U/L ALT 19 (6-50) U/L Alkaline Phosphatase 63 (38-126) U/L Troponin I < 0.012 (0.000-0.034) ng/mL NT-Pro-B Natriuret Pep 906 H (19.9-100) pg/mL Total Protein 7.4 (6.3-8.2) g/dL Albumin 4.1 (3.5-5.1) g/dL Urine Color Yellow (Yellow) Urine Appearance Clear (Clear) Urine pH 6.0 (5.0-9.0) Ur Specific [place] 1.025 (1.001-1.035) Urine Protein 1+ H (Negative) mg/dL Urine Glucose (UA) Negative (Negative) mg/dL Urine Ketones Negative (Negative) mg/dL Ur Blood (Man) Negative (Negative) Urine Nitrate Negative (Negative) Urine Bilirubin Negative (Negative) Urine Urobilinogen 1.0 (<2.0) mg/dL Leukocyte Esterase Rfl Negative (Negative) QUINTON/UL Urine RBC 0-2 (0-2) /hpf Urine WBC 0-5 (0-3) /hpf Ur Squamous Epith Cells None seen (Few) /hpf Urine Bacteria None seen /hpf Urine Casts 0-2 Ethyl Alcohol < 10 (<10) mg/dL <Catie Rai APRN - Last Filed: 06/11/25 20:40> Imaging Data Attestation: I personally reviewed and interpreted this imaging study as follows: < Catie Rai APRN - Last Filed: 06/11/25 20:40> Radiologist's impression: Impressions Chest X-Ray 06/11/25 17:06 Impression: CHF. Please see above Head/Neck CTA 06/11/25 20:00 IMPRESSION: 1. Stable mild nonspecific cerebral white matter disease, which likely represents chronic small vessel ischemic disease. 2. No aneurysm or significant intracranial arterial stenosis. 3. 17% stenosis of the proximal right internal carotid artery relative to normal distal artery lumen diameter (NASCET criteria). 4. 26% stenosis of the proximal left internal carotid artery relative to normal distal artery lumen diameter. <Catie Rai APRN - Last Filed: 06/11/25 20:40> Discharge Plan Discharge Clinical Impression: Change in mental state, History of opioid abuse, History of alcohol abuse, Tobacco abuse <Michelle Saavedra APRN - Last Filed: 06/11/25 19:31> Patient Disposition: Home <Michelle Saavedra APRN - Last Filed: 06/11/25 19:31> Condition: Stable <Michelle Moore January Last Filed: 06/11/25 19:31> Instructions: Antibiotic Form, How to Stop Smoking (ED), Altered Mental Status (ED) <Michelle Moore January Last Filed: 06/11/25 19:31> Additional Instructions: Please return to the ER with any worsening symptoms. Follow-up with primary care provider and Neurology as soon as possible. Take all medications as prescribed, including regularly scheduled medications. Please remember to stay hydrated and work on tobacco cessation. <Michelle Moore January Last Filed: 06/11/25 19:31> Patient Language: Estonian <Michelle Moore January, Last Filed: 06/11/25 19:31> Prescriptions: No Action buprenorphine HCl 8 mg tablet, sublingual 8 mg sublingual BID duloxetine 60 mg capsule,delayed release(DR/EC) 60 mg PO DAILY Qty: 90 3RF omeprazole 10 mg capsule,delayed release(DR/EC) 10 mg PO DAILY Qty: 30 1RF triamcinolone acetonide 0.1 % cream 1 applic TOPICAL BID metoprolol tartrate 50 mg tablet 50 mg PO BID atorvastatin 20 mg tablet 20 mg PO DAILY Qty: 90 1RF gabapentin 300 mg capsule See Rx Instructions .ROUTE .COMPLEX Qty: 540 1RF Dose Instruction: TAKE 1 CAPSULE BY MOUTH SIX TIMES DAILY Rx Instructions: TAKE 1 CAPSULE BY MOUTH SIX TIMES DAILY losartan 100 mg tablet 100 mg PO DAILY Qty: 90 1RF bupropion HCl [Wellbutrin XL] 300 mg tablet extended release 24 hr 300 mg PO QAM Qty: 90 1RF <Michelle oMore January, Last Filed: 06/11/25 19:31> Follow-up/Referrals: Maximo Mohamud MD [Physician, Neurology] Referral Note: neurology Horace Laguerre DO [Primary Care Provider, Internal Medicine] <Michelle Saavedra Last Filed: 06/11/25 19:31> Time of Disposition: 20:40 <Michelle Saavedra - Last Filed: 06/11/25 19:31> 20:40 <Catie Rai PRODUCT SAFETY HEAD - Last Filed: 06/11/25 20:40>
[2025-06-11 17:17] LABS: Hematocrit 35.8 % (42.0-52.0); Hemoglobin 11.5 g/dL (14.0-18.0); Immature Granulocyte Percent A 0.3 % (0-0.5); Immature Platelet Fraction Pct 8.4 % (0.9-11.2); Lymphocytes Absolute Auto 1.47 K/mm3 (0.9-3.2); Mean Corpuscular HGB Conc 32.1 g/dl (32-36); Mean Corpuscular Hemoglobin 29.9 pg (26-34); Mean Corpuscular Volume 93.0 fl (80-100); Nucleated Red Blood Cells Absolute Auto 0.000 K/mm3 (0.0-0.012); Nucleated Red Blood Cells Perc 0.0 % (0.0-0.2); Platelet Count Result 57 k/mm3 (150-375); Red Blood Count 3.85 M/mm3 (4.6-6.20); White Blood Count 8.0 K/mm3 (4.5-10.0)
[2025-06-11 17:25] LABS: Alanine Aminotransferase 19 U/L (6-50); Albumin Level 4.1 g/dL (3.5-5.1); Alkaline Phosphatase 63 U/L (38-126); Anion Gap 7 mmol/L (4-12); Aspartate Amino Transferase 24 U/L (17-59); Bilirubin,Total 0.6 mg/dL (0.2-1.3); Blood Urea Nitrogen 30 mg/dL (9-20); Calcium 8.2 mg/dL (8.4-10.2); Carbon Dioxide 25 mmol/L (22-30); Chloride 108 mmol/L (98-107); Estimated CRCL calculation 50 ml/min; Estimated Glomerular Filt Rate 42; Glucose 121 mg/dL (65-110); Potassium 4.7 mmol/L (3.4-5.0); Sodium 140 mmol/L (137-145); Total Protein 7.4 g/dL (6.3-8.2)
[2025-06-11 17:27] LABS: INR 1.3; Prothrombin Time 16.0 Seconds (11.1-14.7)
[2025-06-11 17:28] LABS: Partial Thromboplastin Time 33.7 Seconds (22.3-36.8)
[2025-06-11 17:36] LABS: Troponin I < 0.012 ng/mL (0.000-0.034)
--- OUTSIDE RECORDS SUMMARY | 2025-06-11 17:38 | XMS_ITS | Clinical Summary ---
Author Organization [facility] Address [address] [place] [address] Care Team Providers Care Inspector Dials Name Role Phone Juancho Noonan MD Primary [...] type 05/24/2020 Neuropathy 05/24/2020 Attention to ileostomy ([facility]) 018 Incisional hernia, without obstruction or gangre ne 07/21/2018 Hypercalcemia 08/06/2016 BMI 27.0-27.9,adult 05/11/2016 Overview (05/23/2020): Transitioned From: Overweight Male erectile dysfunction, unspecified 6 Acid reflux disease 02/07/2015 Nicotine dependence 02/07/2015 Anxiety 02/06/2015 Cervical pain (neck) 02/06/2015 Depression 02/06/2015 Hypertension 02/06/2015 Insomnia, uncontrolled 02/06/2015 Encounter for preventive health examination 01/25 Overview (05/23/2020): 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 Immunizations Immunization Administration Dates Next Due Tdap (Generic) 08/27/2018,09/27/2009 Family History Medical History Relation Comments Hypertension Brother Hypertension Father [place] Father Alzheimers Paternal Grandmother Relation Status Comments [...] COVID-19 Vaccine (1 - 2023-2 5 season) 2025 DTaP, Tdap and Td Vaccines ( 3 [...] Final Result Performing Organization Address City/State/ZIP Co ct Phone Number [facility] from Last 3 Months or Most Recently Relevant to Health Maintenance Insurance [employer] Care Teams Inspector Dials Relationship Specialty Start Date End Date Juancho Noonan MD PCP - General FAMILY MEDICINE SPORTS MEDICINE 05/22/20
--- OUTSIDE RECORDS SUMMARY | 2025-06-11 17:38 | XMS_ITS | Clinical Summary ---
Author Organization [facility] Address [address] [place] [address] Care Team Providers Care Keyboard Teacher Name Role Phone Wilbert Jones MD Primary Care Provider [phone] Source Comments [facility],non-owned Affiliates and Associated Physician Practices is amultiple site organization consisting of ambulatory clinics and hospital sitesin [place], [place], [place] and [place]. This disclosure is being madepursuant to the Care Everywhere program and may not contain all information available regarding this patient. 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 Gender Identity Not on file Sexual Orientation Not on file Last Filed Vital Signs Vital Sign Reading Time Taken Comments Blood Pressure 150/97 10/20/2018 2:53 PM MOVIE SHOT CAMERA OPERATOR Pulse 96 10/20/2018 2:53 PM MOVIE SHOT CAMERA OPERATOR Temperature 36.1 C (97 F) 10/20/2018 2:53 PM MOVIE SHOT CAMERA OPERATOR Respiratory Rate 16 09/07/2018 9:07 AM MOVIE SHOT CAMERA OPERATOR Oxygen Saturation 100% 09/07/2018 9:07 AM MOVIE SHOT CAMERA OPERATOR Inhaled Oxygen Concentration 28% 09/04/2018 9 :08 AM MOVIE SHOT CAMERA OPERATOR Weight 94.3 kg (208 lb) 10/20/2018 2:53 PM MOVIE SHOT CAMERA OPERATOR Height 180.3 cm (5' 11) 10/20/2018 2:53 PM MOVIE SHOT CAMERA OPERATOR Body Mass Index 29.01 10/20/2018 2:53 PM MOVIE SHOT CAMERA OPERATOR Plan of Treatment Health Maintenance Due Date [...] 2011 ZOSTER VACCINE (1 of 2) 2011 DEPRESSION SCREENING 09/27/2024 COVID-19 VACCINE (1 - 2023-2 5 season) 2025 INFLUENZA VACCINE (#1) 2025 COLON MONITORING 05/06/2028 [...] this topic Medical Devices Implanted Type Area Piping Manager Device Identifier Shelf Expiration Date Model / Serial / Lot Mesh Srg Phasix Sepra [id number] Rect Mfl Implanted:Qty: 1 on 08/29/2018 by Brad Donovan MD at [facility] [employer] 04/23/2020 [id number] / / Procedures Procedure Name Priority Date/Time [...] or abscess without bleeding CPT copyright 2016 [employer]. All rights reserved. The codes documented in this report are preliminary and upon solution design and analysis manager review may be revised to meet current compliance requirements. Jo-Ann Brink, 05/06/2018 11:02:41 AM Note Initiated On: 05/06/2018 10:09 AM Number of Addenda: 0 [facility] [address] [place] [address] [facility] 05/06/2018 10:0 9 AM CDT us Idris Davalos MD GI PROCEDURE ORDERABL ES Edited Result - Final [facility] from Last 3 Months or Most Recently Relevant to Health Maintenance Additional Health Concerns Infection Onset Date Last Indicated MRSA 09/01/2018 09/01/2018 Insurance [facility] AETNA [facility] Advance Directives * Full Code (Latest Code Status on File) Date Activated Date Inactivated Comments 08/29/2018 5:08 PM 09/07/2018 1:18 PM Care Teams Keyboard Teacher Relationship Specialty Start Date End Date Wilbert Jones MD [address] [place] [address] PCP - General 09/01/18
--- OUTSIDE RECORDS SUMMARY | 2025-06-11 17:38 | XMS_ITS | Clinical Summary ---
Author Organization [facility] Address [address], [address] [address] Phone Care Team Providers Care Clinical Educator Name Role Phone Wilbert Jones MD Primary Care Provider [phone] Aries Chu DO Unavailable [phone] Horace Velazco MD Unavailable Medications polyethylene [...] 2011 Zoster Immunization (1 of 2) 2011 Influenza Immunization (#1) 2025 SARS-COV-2 Immunization ( - 2024-25 season) 2025 Respiratory Syncytial Virus (RSV) Immunization (Adult) [...] Insurance MEDICAID [employer] Care Teams Clinical Educator Relationship Specialty Start Date End Date Wilbert Jones MD [address] [place] [id number] PCP - General Family Medicine 10/26/17 Aries Chu DO [address] [place] [id number] Gastroenterology 10/26/17 Horace Velazco MD [address] [place] [id number] Family Medicine 10/26/17
--- OUTSIDE RECORDS SUMMARY | 2025-06-11 17:38 | XMS_ITS | Encounter Summary ---
Author Organization [facility] Address [address] [place] [address] Care Team Providers Care Office Clerk Name Role Phone Wilbert Jones MD Primary Care Provider + [phone] Wilbert Jones MD Primary Care Provider + [phone] Encounter Details Date Type Department Care Team (Late st Contact Info) Description 04/06/2018 Preop Outreach [facility] [address] [place] [address] Sarah Gilliam, FROILAN Social History Tobacco Use Types Packs/Day Years Used Date Smoking Tobacco: Never Assessed Sex and Gender Information Value Date Recorded Sex Assigned at Not on file Legal Sex Male 6:18 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 Gender Identity Not on file Sexual Orientation Not on file documented as of this encounter Plan of Treatment Not on file documented as of this encounter Visit Diagnoses Not on filedocumented in this encounter Additional Health Concerns Infection Onset Date Last Indicated Resolved Time MRSA 09/01/2018 09/01/2018 documented as of this encounter Care Teams Office Clerk Relationship Specialty Start Date End Date Wilbert Jones MD [address] [place], [place] [id number] PCP - General 03/08/18 08/28/18 Wilbert Jones MD [address] [place] [address] PCP - General 09/01/18 documented as of this encounter
--- OUTSIDE RECORDS SUMMARY | 2025-06-11 18:43 | XMS_ITS | Encounter Summary ---
Author Organization [facility] Address [address] [place] [address] Care Team Providers Care Publications Distribution Clerk Name Role Phone Wilbert Jones MD Primary Care Provider + [phone] Wilbert Jones MD Primary Care Provider + [phone] Encounter Details Date Type Department Care Team (Late st Contact Info) Description 04/06/2018 Preop Outreach [facility] [address] [place] [address] Sarah Gilliam, FROILAN Social History Tobacco Use Types Packs/Day Years Used Date Smoking Tobacco: Never Assessed Sex and Gender Information Value Date Recorded Sex Assigned at Not on file 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 Gender Identity Not on file Sexual Orientation Not on file documented as of this encounter Plan of Treatment Not on file documented as of this encounter Visit Diagnoses Not on filedocumented in this encounter Additional Health Concerns Infection Onset Date Last Indicated Resolved Time MRSA 09/01/2018 09/01/2018 documented as of this encounter Care Teams Publications Distribution Clerk Relationship Specialty Start Date End Date Wilbert Jones MD [address] [place], [place] [id number] PCP - General 03/08/18 08/28/18 Wilbert Jones MD [address] [place] [address] PCP - General 09/01/18 documented as of this encounter
--- OUTSIDE RECORDS SUMMARY | 2025-06-11 18:43 | XMS_ITS | Clinical Summary ---
Author Organization [facility] Address [address], [address] [address] Phone Care Team Providers Care Tax Accountant Name Role Phone Wilbert Jones MD Primary Care Provider [phone] Aries Chu DO Unavailable [phone] Horace Velazco MD Unavailable Medications polyethylene [...] Insurance MEDICAID [employer] Care Teams Tax Accountant Relationship Specialty Start Date End Date Wilbert Jones MD [address] [place] [id number] PCP - General Family Medicine 10/26/17 Aries Chu DO [address] [place] [id number] Gastroenterology 10/26/17 Horace Velazco MD [address] [place] [id number] Family Medicine 10/26/17
--- OUTSIDE RECORDS SUMMARY | 2025-06-11 18:43 | XMS_ITS | Clinical Summary ---
Author Organization [facility] Address [address] [place] [address] Care Team Providers Care Steward/Stewardess Second Class Name Role Phone Wilbert Jones MD Primary Care Provider [phone] Source Comments [facility],non-owned Affiliates and Associated Physician Practices is amultiple site organization consisting of ambulatory clinics and hospital sitesin [place], [place], [place] and [place]. This disclosure is being madepursuant to the Care Everywhere program and may not contain all information available regarding this patient. Last updated 18.[facility] Allergies No known active allergies Medications * [...] on file Legal Sex Male 6:18 AM EDUCATIONAL INTERPRETER Gender Identity Not on file Sexual Orientation Not on file Last Filed Vital Signs Vital Sign Reading Time Taken Comments Blood Pressure 150/97 10/20/2018 2:53 PM EDUCATIONAL INTERPRETER Pulse 96 10/20/2018 2:53 PM EDUCATIONAL INTERPRETER Temperature 36.1 C (97 F) 10/20/2018 2:53 PM EDUCATIONAL INTERPRETER Respiratory Rate 16 09/07/2018 9:07 AM EDUCATIONAL INTERPRETER Oxygen Saturation 100% 09/07/2018 9:07 AM EDUCATIONAL INTERPRETER Inhaled Oxygen Concentration 28% 09/04/2018 9 :08 AM EDUCATIONAL INTERPRETER Weight 94.3 kg (208 lb) 10/20/2018 2:53 PM EDUCATIONAL INTERPRETER Height 180.3 cm (5' 11) 10/20/2018 2:53 PM EDUCATIONAL INTERPRETER Body Mass Index 29.01 10/20/2018 2:53 PM EDUCATIONAL INTERPRETER Plan of Treatment Health Maintenance Due Date [...] this topic Medical Devices Implanted Type Area Correctional Substance Abuse Counselor Device Identifier Shelf Expiration Date Model / Serial / Lot Mesh Srg Phasix Sepra [id number] Rect Mfl Implanted:Qty: 1 on 08/29/2018 by Brad Donovan MD at [facility] [employer] 04/23/2020 [id number] / / Procedures Procedure Name Priority Date/Time [...] or abscess without bleeding CPT copyright 2016 [employer]. All rights reserved. The codes documented in this report are preliminary and upon meat grading machine operator review may be revised to meet current compliance requirements. 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
--- OUTSIDE RECORDS SUMMARY | 2025-06-11 18:43 | XMS_ITS | Clinical Summary ---
Author Organization [facility] Address [address] [place] [address] Care Team Providers Care Principal Systems Engineer Name Role Phone Juancho Noonan MD Primary [...] type 05/24/2020 Neuropathy 05/24/2020 Attention to ileostomy ([facility]) 018 Incisional hernia, without obstruction or gangre ne 07/21/2018 Hypercalcemia 08/06/2016 BMI 27.0-27.9,adult 05/11/2016 Overview (05/23/2020): Transitioned From: Overweight Male erectile dysfunction, unspecified 6 Acid reflux disease 02/07/2015 Nicotine dependence 02/07/2015 Anxiety 02/06/2015 Cervical pain (neck) 02/06/2015 Depression 02/06/2015 Hypertension 02/06/2015 Insomnia, uncontrolled 02/06/2015 Encounter for preventive health examination 01/25 Overview (05/23/2020): Transitioned From: watermelon inspector use of drug Immunizations Immunization Administration Dates Next Due Tdap (Generic) 08/27/2018,09/27/2009 Family History Medical History Relation Comments Hypertension Brother Hypertension Father NH Father Alzheimers Paternal Grandmother Relation Status Comments [...] Final Result Performing Organization Address City/State/ZIP Co sc Phone Number [facility] from Last 3 Months or Most Recently Relevant to Health Maintenance Insurance [employer] Care Teams Principal Systems Engineer Relationship Specialty Start Date End Date Juancho Noonan MD PCP - General FAMILY MEDICINE SPORTS MEDICINE 05/22/20
--- NOTE | 2025-06-11 18:51 | PC.NURSE ---
patient taken to [facility] in WC and was unable to void for UA sample. patient encouraged to provide urine PAULO for disposition.
[2025-06-11 20:07] LABS: Add Urine Microscopic? YES; Appearance Urine Clear (Clear); Glucose Urine UA Negative (Negative); Leukocyte Esterase Ur Negative LEU/UL (Negative); Nitrate Urine Negative (Negative); Non Pathogenic Casts 0-2; Specific Grav Ur 1.025 (1.001-1.035)
[2025-06-11 20:09] LABS: NT Pro B Type Natriuretic Pept 906 pg/mL (19.9-100)
== END 2025-06-11 21:05 | disposition home or self-care (01) ==
PROVIDERS: Emergency Provider Nurse Practitioner Family; PCP Internal Medicine
DX: J44.9 Chronic obstructive pulmonary disease, unspecified (principal); E78.5 Hyperlipidemia, unspecified; I10 Essential (primary) hypertension; Z85.828 Personal history of other malignant neoplasm of skin; F17.210 Nicotine dependence, cigarettes, uncomplicated; R41.82 Altered mental status, unspecified
CPT/HCPCS: 36415; 70496; 70498; 71045; 80053; 81001; 82077; 83880; 84484; 85025; 85055; 85610; 85730; 93005; 99284; Q9967

== ENCOUNTER 2025-08-15 09:52 | Outpatient (CLI) | payer MEDICARE, SELFPAY ==
--- NOTE | ~2025-08-15 | MR_ITS ---
EXAMINATION: MR brain/brain stem wo con DATE: 08/15/2025 11:55 INDICATION: Amnesia TECHNIQUE: Magnetic resonance imaging (MRI) of the brain and brainstem was performed without intravenous contrast. COMPARISON: April 06, 2025 FINDINGS: No acute ischemic event, mass or hemorrhage. Mild fairly symmetric bilateral occipital hyperintense T2-weighted changes present on the March exam have resolved. There is mild diffuse periventricular hyperintense T2-weighted white matter changes, more pronounced along the posterior horns of the lateral ventricles which appears unchanged from the pr evious exam. No new areas of signal abnormality. No evidence of microbleeds on gradient echo images. Vascular flow voids patent at the skull base. Brainstem and cerebellum appear normal. Periorbital paranasal calvarial structures appear stable with mild diffuse mucoperiosteal thickening. IMPRESSION: 1. Improved appearance of the occipital lobes on today's exam suggesting the previous findings were associated with posterior reversible encephalopathy syndrome. No signal changes have normalizes on today's study. 2. No acute ischemic event, mass or hemorrhage. Mild diffuse chronic microvascular ischemic appearing white matter changes. 3. Mild diffuse paranasal sinus disease. Reviewed, dictated and finalized at location A. L ESTIMATOR IMPRESSION: 1. Improved appearance of the occipital lobes on today's exam suggesting the pr evious findings were associated with posterior reversible encephalopathy syndro me. No signal changes have normalizes on today's study. 2. No acute ischemic event, mass or hemorrhage. Mild diffuse chronic microvascu lar ischemic appearing white matter changes. 3. Mild diffuse paranasal sinus disease.
== END 2025-08-15 09:53 | disposition home or self-care (01) ==
PROVIDERS: PCP Internal Medicine; Visit Provider Psychiatry & Neurology Neurology
DX: I67.82 Cerebral ischemia (principal); R41.3 Other amnesia; R90.82 White matter disease, unspecified; J34.9 Unspecified disorder of nose and nasal sinuses
CPT/HCPCS: 70551